=== PATIENT | female | born 1960 | race Caucasian/White ===

== ENCOUNTER 2016-10-18 10:07 | Day surgery (SDC) | payer MEDICARE, MEDICAID ==
[~2016-10-18] VITALS: Ht 149.9 cm; Wt 80.8 kg
[2016-10-18] VITALS (15 sets, daily range): BP systolic 103–135; BP diastolic 52–93; PULSE 78–94; RESP 10–20; TEMP 97.4–98.4; O2SAT 90–100; Ht 149.9 cm; Wt 80.8 kg
[~2016-10-18 10:07] MED LIST: ACET-2321 PO; ALBU2.5V7 AEROSOL; BENZ-16 PO; BUPR-51 PO; FLUT16SP EA NOSTRIL; GUAI-782 PO; HYDR-4246 PO; IPRA3AMP AEROSOL; LEVO150T11 PO; LIDOCAINE 1% (10mg/ml) 2ml SDV INJ ONE; LORA0.5T86 PO; METO5TAB2 PO; ONDA-55 PO; POTA20LI4 PO; QUET200T PO; QUET50TA PO
--- OUTSIDE RECORDS SUMMARY | 2016-10-18 10:13 | XMS REPORT | Continuity of Care Document ---
Author Author [facility] Organization [facility] Address Unknown Phone Unavailable Allergies Medications Problems Procedures Results Encounters ACCT No. Visit Date/Time Discharge Status Pt. Type Provider Facility Loc./Unit Complaint [id number] 10/15/2013 11:01:00 10/15/2013 23 :59:59 CLS Outpatient [id number] 09/30/2013 09:20:00 09/30/2013 23 :59:59 CLS Outpatient [id number] 08/27/2013 08:52:00 08/27/2013 23 :59:59 CLS Outpatient
[2016-10-18] MEDS ORDERED: ERTAPENEM 1 G in NORMAL SALINE 100 ML IV ONE (11:00)
[2016-10-18] MEDS ORDERED: FLUC200T8 PO (11:06)
[2016-10-18] MEDS ORDERED: FOLI1TAB15 PO (11:09)
[2016-10-18] MEDS ORDERED: THIA50TA PO (11:11)
[2016-10-18] MEDS ORDERED: CHOL200024 PO (11:16)
[2016-10-18 11:37] LABS: ANION GAP 9 MEQ/L (5-15); BUN/CREATININE RATIO 16 RATIO (6-26); CALCIUM 7.9 MG/DL (8.4-10.2); CHLORIDE 109 MEQ/L (98-107); CO2 - CARBON DIOXIDE 23 MEQ/L (22-30); CREATININE 0.7 MG/DL (0.7-1.2); GLOMERULAR FILTRATION RATE 86; GLUCOSE 87 MG/DL (65-110); POTASSIUM 4.4 MEQ/L (3.6-5); SODIUM 141 MEQ/L (134-144)
[2016-10-18] MEDS ORDERED: LR 1,000 ML IV PRN (12:02)
[2016-10-18] MEDS ORDERED: BUPIVACAINE 0.25%/EPI 1:200,000 30ml SDV ONE (12:05)
--- NOTE | 2016-10-18 12:27 | ANESPREOP ---
Anesthesia Record Date and Time DATE: 10/18/16 TIME: 12:09 Pre-Op Diagnosis poor venous access Proposed Surgical Procedure power port insertion NPO since: [place] Allergies: Coded Allergies: divalproex sodium (Verified Allergy, Severe, FACE SWELLS, 10/18/16) Sulfa (Sulfonamide Antibiotics) (Verified Allergy, Intermediate, RASH, ) phenazopyridine HCl (Verified Allergy, Intermediate, RASH, 10/18/16) gentamicin (Verified Allergy, Unknown, 10/18/16) phenazopyridine (Verified Allergy, Unknown, 10/18/16) levofloxacin (Verified Adverse Reaction, Severe, HALLUCINATIONS, 10/18/16) psychosis ampicillin (Verified Adverse Reaction, Mild, DIARRHEA, 10/18/16) Uncoded Allergies: Dantrisin (Allergy, Intermediate, RASH, 08/01/10) Ht/Wt/BMI Height: 4 ' 11.00 " Weight: 80.800 kg BMI: 36.0 kg/m2 Vital Signs Date Time Temp Pulse Resp B/P Pulse Ox O2 Delivery O2 Flow Rate FiO2 10/18/16 10:52 98.4 91 13 135/93 94 Room Air Medications Inpatient Medications Current Medications Medications (Trade) Dose Ordered Sig/Omari Start Time Stop Time Status Last Admin Dose Admin Lactated Ringer's (Lactated Ringers) 1,000 ml @ 0 mls/hr Q0M PRN 10/18/16 12:02 UNV 10/18/16 12:04 0 MLS/HR Acetaminophen (Tylenol) 325 Mg Tablet, 325 MG PO Q5H PRN for PAIN Last Taken: on Unknown Date & Time Albuterol Sulfate (Albuterol Sulfate) 2.5 Mg/3 Ml Vial.neb, 2.5 MG AEROSOL Q4HR PRN for SHORTNESS OF AIR Last Taken: on Unknown Date & Time Benzonatate (Benzonatate) 100 Mg Capsule , 100 MG PO TID PRN for COUGH Last Taken: on Unknown Date & Time Bupropion HCl (Bupropion Xl) 150 Mg Tab.er.24h, 150 MG PO DAILY, (Reported) Last Taken: on 10/17/16 1000 Cholecalciferol (Vitamin D3) (Vitamin D-3) 2, 000 Unit Tablet, DAILY, (Reported) Last Taken: on 10/17/16 0600 Fluconazole (Fluconazole) 200 Mg Tablet, 1 TAB PO DAILY, (Reported) Last Taken: on 10/17/16 0600 Fluticasone Propionate (Fluticasone Prop 50 mcg /actuation Nasal Stewart) 120 Stewart/16 G Stewart, 2 SPRAY EA NOSTRIL DAILY Last Taken: on Unknown Date & Time Folic Acid (Folic Acid) 1 Mg Tablet, 2 TAB PO DAILY, (Reported) Last Taken: on 10/17/16 0600 Guaifenesin/Dextromethorphan (Mucinex Dm ER 600 -30 mg Tablet) 1 Each Tab.er.12h, 1 TAB PO Q12HR Last Taken: on 10/17/16 1800 Hydrocodone/Acetaminophen (Starbuck 5-325 Tablet) 5-325 Tablet, 1 TAB PO Q6H PRN for PAIN Last Taken: on 10/17/16 1717 Ipratropium/Albuterol Sulfate (Iprat-Albut 0.5- 3(2.5) mg/3 ml) 3 Ml Ampul.neb, 3 ML AEROSOL RTQID Last Taken: on Unknown Date & Time Levothyroxine Sodium (Levothyroxine Sodium) 150 Mcg Tablet, 150 MCG PO DAILY, (Reported) Last Taken: on 10/18/16 0500 Lorazepam (Ativan) 0.5 Mg Tablet, 0.5 MG PO BID Last Taken: on 10/17/16 0600 Metoclopramide HCl (Metoclopramide HCl) 5 Mg Tablet, 5 MG PO ACHS, (Reported) Last Taken: on Unknown Date & Time Ondansetron HCl (Ondansetron HCl) 4 Mg Tablet, 4 MG PO Q6HR PRN for NAUSEA &/OR VOMITING, (Reported) Last Taken: on Unknown Date & Time Potassium Chloride (Potassium Chloride) 20 Meq/15 Ml Liquid, 20 MEQ PO TIDWM Take 15 ml, by mouth, three times a day with meals. MUST be diluted before giving. Last Taken: on 10/17/16 1800 Quetiapine Fumarate (Seroquel) 50 Mg Tablet, 50 MG PO DAILY PRN for ANXIETY/AGITATION, (Reported) Last Taken: on 10/16/16 1800 Quetiapine Fumarate (Seroquel) 200 Mg Tablet, 200 MG PO HS, (Reported) Take 1 tablet, by mouth, once a day at bedtime. Last Taken: on 10/17/16 1800 Thiamine HCl (Vitamin B-1) 50 Mg Tablet, 1 TAB PO DAILY, (Reported) Last Taken: on 10/17/16 0600 Currently on Beta David: No Medical/Surgical History Anesthesia PMH: Reports: *Diabetes (HYPERGLYCEMIA PER H&P), *Dyspnea (ON EXERTION-PER PAST ADMIT), *Hypertension (PER H&P), Anesthesia Reactions (NO AIRWAY ISSUES), Anxiety, Arthritis, Depression, Glaucoma (POSSIBLE & MAD), Headaches (MIGRAINES), Hiatal Hernia, Muscle Weakness, Obesity, Other (recent resp infection - RSV, recent falls - moved to [facility] in Aug 2016, mental status change at times per pt's mother), Reflux, Sleep Apnea, Thyroid Disease ( HYPOTHYROIDISM PER H&P), Denies: *PA, Asthma, Blood Transfusion Reac, CHF, COPD , CVA/Stroke/TIA, Cancer, Cardiac Arrythmia, Clotting Problems, Hepatitis, Malignant Hyperthermia, Pacemaker, Pneumonia, Renal Disease, Seizures, Tuberculosis Smoking Status: Never smoker Has pt. smoked today?: No Use Chewing Tobacco?: No Second Hand Exposure: No Substance Use Type: does not use Alcohol Intake: none HX of Last Menstrual Period: HYST. PER H&P Past Surgical History Orthopedic Surgeries: Yes - GANGLION CYST IF WRIST PER H&P Abdominal Surgeries: Yes - GASTROPLASTY, JACQUE, GASTRIC BYPASS PER H&P Genitourinary Surgeries: Yes - CYSTOSCOPY PER H&P Cardiac Surgeries: Yes - PER H&P Endocrine Surgeries: No Reproductive Surgeries: Yes - HYST, TUBAL PER H&P Neurological Surgeries: No Ear Surgeries: No Nose Surgeries: No Throat Surgeries: No Other Surgeries: No Anesthesia Adverse Reactions: FOUND none Family Hx of Anesthesia Advers: none Hx of Motion Sickness: No Pertinent Findings Laboratory Tests 10/18/16 11:01 Physical Exam Respiratory: Decreased breath sounds L, Decreased breath sounds R Cardiovascular: FOUND Regular rate, rhythm, FOUND No murmur Airway Assessment Mallampati Score: III TMD: 3 Fingerbreadths Neck Extension: Fair Teeth: Upper Dentures, Lower Dentures (attached to implants per pt's mother) Overall Assessment: No Airway Concerns ASA: 3 Plan Anesthesia Plan: TIVA, MAC Discussion Discussed risks/options/alternatives of anesthesia and questions answered. Patient consents. Nursing pain assessment noted. Present: Parent (pt's mother provided history d/t pt current clinical presentation - nonverbal) Attestation Statement Prior to the delivery of any anesthetic medication, I examined the patient, developed the plan, obtained the patient's consent and discussed the risk and benefits of the procedure with the patient/guardian. LAKEISHA SOSA ADJUSTER ARBITRATOR STUDENT Oct 18, 2016 12:12
[2016-10-18] MEDS ORDERED: PROPOFOL 200mg 20 ML IV ONE (12:33)
[2016-10-18] MEDS ORDERED: PROPOFOL 500mg 50 ML IV ONE (12:44)
[2016-10-18] MEDS ORDERED: POTA20TA87 PO (13:39)
--- NOTE | 2016-10-18 13:55 | DI ---
Indication: ITS.REASON: POWERPORT INSERTION PORTACATH W FLUORO W 1V CXR: Comparison: 08/06/2016 Technique: Single portable chest Findings: Patient shows a port in place in the right pectoral region. The distal tip of the tubing is in the upper midportion of the superior vena cava. No suggestion pneumothorax noted. Patient is fairly significantly rotated. Impression: Patient shows a right-sided port in place with its tip in the upper midportion of the superior vena cava. .
[2016-10-18] MEDS ORDERED: SALINE FLUSH 10ml SYRINGE IVF ONE (15:28)
--- NOTE | 2016-10-18 15:42 | ANESPO ---
Post-Op Note Date 10/18/16 Time: 15:41 Status Pt Participated in Evaluation: Pt participated in person Vital Signs Date Time Temp Pulse Resp B/P Pulse Ox O2 Delivery O2 Flow Rate FiO2 10/18/16 15:15 94 18 108/58 97 Room Air 10/18/16 13:35 97.4 Respiratory Function: Airway patent, Regular respirations Cardiovascular Function: Regular pulse Mental Status: Alert/oriented (return to pre op condition) Pain Level Intensity: 0 Hydration: IV infusing Complications during Recovery None apparent Follow-Up Instructions Instructions Per Surgeon DHEERAJ SOSA I KIDNEY TRIMMER Oct 18, 2016 15:42
--- NOTE | 2016-10-18 21:09 | OPNOTEF ---
DATE OF SERVICE 10/18/2016 SURGEON Oziel Lopez MD PREOPERATIVE DIAGNOSIS History for multiple medical comorbidities requiring numerous hospitalizations, history for poor venous access. POSTOPERATIVE DIAGNOSIS History for multiple medical comorbidities requiring numerous hospitalizations, history for poor venous access. PROCEDURE Insertion of PowerPort catheter under sonographic and fluoroscopic guidance. ANESTHESIA TIVA BRIEF HISTORY/INDICATIONS Mrs. Alicia is a 56-year-old female who unfortunately has several medical comorbidities requiring numerous hospitalization. She is on medication that requires frequent lab draws. Nursing staff is having an increasingly more difficult time obtaining peripheral IV access following her admissions and the phlebotomy team is having increasingly more difficulty in performing lab draws. To facilitate her ongoing care it was recommended that she undergo placement of a PowerPort. Patient presents today to undergo this procedure. For completeness please refer to notes included in the patient's chart. DESCRIPTION OF OPERATION After informed consent was obtained, the patient was brought to the operative suite, placed on the table in supine fashion. The right lateral neck and anterior chest were then prepped and draped in a sterile fashion. First, the patient was placed in Trendelenburg position and ultrasonography was performed along the right lateral neck. One could see a round hypoechoic structure which collapsed with pressure applied via the ultrasound transducer. This corresponded with the internal jugular vein. 0.25% Marcaine with epinephrine was injected overlying the anatomic location of the internal jugular vein. A Cook needle was then introduced through the area of analgesia and into the underlying internal jugular vein under sonographic guidance. A guidewire was advanced through the Cook needle and the Cook needle was then removed. Fluoroscopy was then performed which revealed the guidewire to be within the atrium and right ventricle. A 5-6 mm incision was then made adjacent to the exit site of the guidewire and extended out laterally. Additional 0.25% Marcaine with epinephrine was injected about two fingerbreadths below the right clavicle. A 3 cm incision was then made through the area of analgesia. A subcutaneous pocket was then created just inferior or caudad to this incision. A PowerPort reservoir was then brought forth into the operative field and placed within the subcutaneous pocket and subsequently imbricated to the underlying pectoralis fascia in a triangulated fashion by placing three simple interrupted sutures of 0-Prolene through the underlying pectoralis fascia and subsequently through the holes within the reservoir itself. The catheter was then tunneled between the two incisions. A dilator and tear-away sheath were then advanced over the guidewire. The guidewire and dilator were then removed. The catheter was then quickly advanced in the tear-away sheath and the tear-away sheath was then removed. Under fluoroscopy, the tip of the catheter was then placed near the junction between the superior vena cava and right atrium and cut to the appropriate length and subsequently attached to the PowerPort reservoir. The PowerPort reservoir was then accessed and was easily aspirated and flushed with heparinized saline. Both skin incisions were then closed in a subcuticular fashion with 4-0 Monocryl. The patient tolerated the procedure without difficulty. A post procedure chest x-ray will be obtained postoperatively. The results of this film are pending at the time of dictation. FRANSISCO
== END 2016-10-18 16:45 | disposition home or self-care (01) ==
LOC: SCU 10:07
PROVIDERS: ATTEND Surgery
DX: I99.8 Other disorder of circulatory system (principal); E03.9 Hypothyroidism, unspecified; I10 Essential (primary) hypertension; G43.909 Migraine, unspecified, not intractable, without status migrainosus; G47.33 Obstructive sleep apnea (adult) (pediatric); F41.1 Generalized anxiety disorder; F31.9 Bipolar disorder, unspecified; K76.0 Fatty (change of) liver, not elsewhere classified; E66.09 Other obesity due to excess calories; Z79.899 Other long term (current) drug therapy; Z79.51 Long term (current) use of inhaled steroids; Z88.1 Allergy status to other antibiotic agents; Z88.2 Allergy status to sulfonamides; Z88.8 Allergy status to other drugs, medicaments and biological substances; Z68.35 Body mass index [BMI] 35.0-35.9, adult; Z90.710 Acquired absence of both cervix and uterus; Z90.49 Acquired absence of other specified parts of digestive tract
CPT/HCPCS: 36416; 36561; 77001; 80048; C1788; J1335; J1642; J2704; J7050; J7120

== ENCOUNTER 2016-10-20 11:28 | Inpatient (IN) | payer MEDICARE, MEDICAID ==
[2016-10-20] VITALS (19 sets, daily range): BP systolic 96–122; BP diastolic 55–81; PULSE 92–104; RESP 22–31; TEMP 99.1–103; O2SAT 96–100; Ht 157.5 cm; Wt 88.1 kg
[~2016-10-20] VITALS: Ht 157.5 cm; Wt 88.1 kg
[~2016-10-20 11:28] MED LIST changes: +CHOL200024 PO; +FLUC200T8 PO; +FOLI1TAB15 PO; -LIDOCAINE 1% (10mg/ml) 2ml SDV INJ ONE; -POTA20LI4 PO; +POTA20TA87 PO; +THIA50TA PO
--- OUTSIDE RECORDS SUMMARY | 2016-10-20 11:33 | XMS REPORT | Continuity of Care Document ---
Author Author [facility] Organization [facility] Address Unknown Phone Unavailable Allergies Medications Problems Procedures Results Encounters ACCT No. Visit Date/Time Discharge Status Pt. Type Provider Facility Loc./Unit Complaint [id number] 10/15/2013 11:01:00 10/15/2013 23 :59:59 CLS Outpatient [id number] 09/30/2013 09:20:00 09/30/2013 23 :59:59 CLS Outpatient [id number] 08/27/2013 08:52:00 08/27/2013 23 :59:59 CLS Outpatient
--- NOTE | 2016-10-20 11:37 | NUR ---
SEIZURE PT EXHIBITS SEIZURE LIKE ACTIVITY, TWITCHING BILATERAL EXTREMITIES, FACE; R EYE HELD OPEN, LEFT EYE TWITCHING SHUT. PT EXHIBITS WHITE SALIVA AT CORNERS OF MOUTH. DR CARTER CALLED TO BEDSIDE. DR CARTER PRESENT IMMEDIATELY.
[2016-10-20] MEDS ORDERED: GUAI-782 PO (11:38)
--- NOTE | 2016-10-20 11:38 | NUR ---
OXYGEN PLACED MASK 10L, SPO2 63% ON RA.
--- NOTE | 2016-10-20 11:40 | NUR ---
SPO2 100% 10L PER MASK.
[2016-10-20] MEDS ORDERED: POTA-81 PO (11:44)
[2016-10-20] MEDS ORDERED: LORA0.5T2 PO ×2 (11:44→11:52)
[2016-10-20] MEDS ORDERED: NORMAL SALINE 1,000 ML IV ONE ×2 (11:45→13:45)
[2016-10-20] MEDS ORDERED: BENZ-16 PO (11:47)
[2016-10-20] MEDS ORDERED: HYDR-4246 PO (11:47)
[2016-10-20] MEDS: LORAZEPAM 2 MG/ML INJECTION IV ONE ×2 (11:48→12:08)
--- NOTE | 2016-10-20 11:50 | NUR ---
SEIZURE PT EXHIBITED SEIZURE LIKE ACTIVITY AT THIS TIME. ACTIVITY SAME PREVIOUS, WITH WHOLE BODY TWITCHING AND L EYE TWITCHING WITH R EYE HELD OPEN. REPORTED ACTIVITY TO DR CARTER.
[2016-10-20] MEDS ORDERED: SUMA50TA PO (11:52)
[2016-10-20] MEDS ORDERED: ACET325T51 PO (11:52)
[2016-10-20] MEDS ORDERED: QUET50TA PO (11:54)
--- NOTE | 2016-10-20 11:56 | ERPDOC ---
Departure Disposition Decision Date: Oct 20, 2016 Disposition Decision Time: 15:18 Disposition: 02 TO [facility] Impression Impression Impression: Primary Impression: Mental status change Additional Impressions: Epilepsy Hypotension Severity: Critical Condition: Improved Seen By: Physician only Referrals: PATIENCE HOWELL MD (Family) Problems/Meds/Labs Reviewed?: Yes Medications reviewed and manag: Yes Follow up care ordered?: Yes Mental Status: Confused HPI - CVA/Neuro General Chief Complaint: Seizure Stated Complaint: SEIZURES Time Seen by Provider: 11:35 HPI - CVA/NEURO Initial Comments 56-year-old female brought in from assisted living with mental status change. Since last Saturday she has been obtunded, not eating much. She has had changes made to her medications, having been admitted to generations and other psychologic issues. On arrival by EMS she responds to sternal rub, she does try to assist him with of dread remove her shirt. Or when the blanket is lifted over her arms. However approximately 3 minutes into her evaluation, she began to have tonic-clonic left-sided seizure involving face and arms and leg. Left eye contracted and opened quite violently, rapidly and rhythmically. Same rhythm with arm flexor and extensor contractions and leg flexor and extensor contractions. This lasted approximately 3 minutes and resolved. She then had a second episode about 10 minutes later. She does have hypertension and tachycardia on initial eval. Allergies: Coded Allergies: divalproex sodium (Verified Allergy, Severe, FACE SWELLS, 10/18/16) Sulfa (Sulfonamide Antibiotics) (Verified Allergy, Intermediate, RASH, ) phenazopyridine HCl (Verified Allergy, Intermediate, RASH, 10/18/16) gentamicin (Verified Allergy, Unknown, 10/18/16) phenazopyridine (Verified Allergy, Unknown, 10/18/16) levofloxacin (Verified Adverse Reaction, Severe, HALLUCINATIONS, 10/18/16) psychosis ampicillin (Verified Adverse Reaction, Mild, DIARRHEA, 10/18/16) Uncoded Allergies: Dantrisin (Allergy, Intermediate, RASH, 08/01/10) Past History Unable to Obtain PMH Due to: clinical condition Patient Surgical History bariatric procedure ? Rouenx y gastric bypass abdominoplasty s/p weight loss RAJIV cholecystectomy ganglion cysts Past Medical History Metabolic: hypothyroidism Cardiac: CHF GI: GERD Neurological: migraines Musculoskeletal: back pain, neck pain, osteoarthritis Integumentary: eczema Psychological: anxiety, bipolar, depression Vaccines Hx Influenza Vaccination: Yes (05-24-16) Hx Pneumococcal Vaccination: Yes (08-27-13) Social History Does patient use chewing tobac: No Second Hand Exposure: No Substance Use Type: does not use Alcohol Intake: none Marital Status: Single Housing: assisted living facility Household Members: none Current Occupational Status: unemployed, disabled Advance Directives: Yes Full Code Review of Systems Unable to Obtain ROS Due to: clinical condition Physical Exam General General Nourishment: adult, obese General Body Habitus: disheveled Vitals and Pain First Documented Vital Signs Date Time Temp Pulse Resp B/P Pulse Ox O2 Delivery O2 Flow Rate FiO2 10/20/16 11:30 101.4 92 16 130/82 98 Room Air 10/20/16 11:38 10.00 Weight: Kilograms: 78.200 Height (feet): 5 Height (inches): 2.00 Triage Pain Scale: Normal Exams: Head: Normocephalic w/o trauma Eyes: Pupils are PERRLA w/ EOMI, No scleral icterus, irritation, or foreign bodies noted Neurologic (brief) Comments Patient initially responded to sternal rub, now he is less responsive than that , does open eyes to very irritating stimuli. Differential Diagnoses Considering: Other (CVA, brain abscess, epilepsy, medication reaction) Progress Results/Orders Orders Procedure Category Date Status Time Iv Lock (Ed Only) EDM 10/20/16 Transmitted 11:43 Oxygen Administration EDM 10/20/16 Transmitted 11:43 Nothing By Mouth (Ed EDM 10/20/16 Transmitted Only) 11:43 Bgm (Ed) EDM 10/20/16 Transmitted 11:43 Cmp - Comprehensive LAB 10/20/16 Complete Metabolic 11:43 Drug Screen LAB 10/20/16 Complete Urine-Test At [facility] 11:43 Prolactin LAB 10/20/16 Complete 11:43 Lorazepam (Ativan) PHA 10/20/16 Complete 11:45 Normal Saline (Normal PHA 10/20/16 Complete Saline Iv) 11:45 Lactate - Lactic Acid LAB 10/20/16 In Process 11:43 Blood Culture ELIZABETH 10/20/16 In Process 11:43 Procalcitonin LAB 10/20/16 Complete 11:43 Burroughs (Ed) EDM 10/20/16 Transmitted 11:43 Blood Gas, Arterial - LAB 10/20/16 Complete ABG 11:43 Catheter Needs SPENSER 10/20/16 In Process Assessment 11:43 Bladder Scanner (Ed) EDM 10/20/16 Transmitted 11:43 Ct Head W/O Contrast CT 10/20/16 Taken Diazepam (Valium) PHA 10/20/16 Complete 12:00 Normal Saline (Normal PHA 10/20/16 Complete Saline Iv) 13:45 UA, LAB 10/20/16 Complete Dip&Micro(Complete) & 12:55 Cbc W/Auto LAB 10/20/16 Complete Diff-Reflex Manual 14:42 Lab Results Laboratory Tests Test 10/20/16 12:30 10/20/16 12:55 10/20/16 13:09 10/20/16 14:36 Arterial Blood pH 7.450 Arterial Blood Partial Pressure CO2 33MMHG Arterial Blood pO2 at Patient Temp 205MMHG Arterial Blood HCO3 23MEQ/L Arterial Blood Total CO2 23.9MEQ/L Arterial Blood Oxygen Saturation 100.0% Arterial Blood Base Excess -0.5MMOL/L Oxygen Delivery Method (LAB) Simple mask, % Blood Gas Oxygen Liter Flow 10 Blood Gas Oxygen Percent Given Blood Gas Vent Rate Blood Gas Tidal Volume ML Urine Collection Type Straight cath Urine Color Yellow Urine Turbidity Clear Urine pH 6.0 Urine Specific [place] 1.020 Urine Protein Negative Urine Glucose (UA) Negative Urine Ketones 1+ Urine Blood 2+ Urine Nitrite Negative Urine Bilirubin Negative Urine Urobilinogen 0.2EU/DL Urine Leukocyte Esterase Negative Urine RBC 5-10/HPF Urine WBC 1-3/HPF Urine Squamous Epithelial Cells 5-10 Urine Bacteria 1+ Urine Mucus Present Urine Culture Indicated Cult not indicated Urine Opiates Screen PositiveNG/ML Urine Oxycodone Screen NegativeNG/ML Urine Methadone Screen NegativeNG/ML Urine Propoxyphene Screen NegativeNG/ML Urine Barbiturates Screen NegativeNG/ML Urine Tricyclic Antidepressants NegativeNG/ML Urine Phencyclidine Screen NegativeNG/ML Urine Amphetamines Screen NegativeNG/ML Urine Methamphetamines Screen NegativeNG/ML Urine Benzodiazepines Screen PositiveNG/ML Urine Cocaine Screen NegativeNG/ML Urine Cannabinoids Screen NegativeNG/ML Urine Drug Screen Confirmation Sent out Urine Drug Screen Information Pending Glucometer 105mg/dL Turbidity < 20 Sodium Level 146MEQ/L Potassium Level Pending Chloride Level 111MEQ/L Carbon Dioxide Level 23MEQ/L Anion Gap 12MEQ/L Blood Urea Nitrogen 8.0MG/DL Creatinine 0.7MG/DL Glomerular Filtration Rate Calc 86 BUN/Creatinine Ratio 11RATIO Glucose Level 83MG/DL Calculated Osmolality 278MOSM/KG Calcium Level Pending Total Bilirubin 1.00MG/DL Icterus Index < 2 Aspartate Amino Transf (AST/SGOT) 60U/L Alanine Aminotransferase (ALT/SGPT) 53U/L Alkaline Phosphatase 102U/L Total Protein 4.8G/DL Albumin 1.9G/DL Globulin 2.9G/DL Albumin/Globulin Ratio 0.7RATIO Plasma Lactate 1.5MMOL/L Procalcitonin 0.05NG/ML Prolactin 4.1NG/ML Chemistry Specimen Hemolysis < 15 Test 10/20/16 14:42 White Blood Count 9.7T/MM3 Red Blood Count 3.42M/MM3 Hemoglobin 11.1GM/DL Hematocrit 35.1% Mean Corpuscular Volume 102.6UM3 Mean Corpuscular Hemoglobin 32.5UUG Mean Corpuscular Hemoglobin Concent 31.6GM/DL RDW Standard Deviation 67.6FL Platelet Count 298T/MM3 Mean Platelet Volume 8.3UM3 Immature Granulocyte % (Auto) 0.3% Neutrophils (%) (Auto) 79.9% Lymphocytes (%) (Auto) 17.4% Monocytes (%) (Auto) 2.4% Eosinophils (%) (Auto) 0.0% Basophils (%) (Auto) 0.0% Absolute Immature Granulocyte (auto 0.03T/MM3 Absolute Neutrophils (auto) 7.8T/MM3 Absolute Lymphocytes (auto) 1.7T/MM3 Absolute Monocytes (auto) 0.2T/MM3 Absolute Eosinophils (auto) 0.0T/MM3 Absolute Basophils (auto) 0.0T/MM3 Medications Current ED Medications Lorazepam 2 mg 2 mg O ONCE IV Last administered on 10/20/16 12:08; Start at 11:45; Stop 10/20/16 at 11:50; Status DC Sodium Chloride (Normal Saline IV) 1,000 ml @ 1,000 mls/hr Q1H ONCE IV Last administered on 10/20/16 12:05; Start 10/20/16 at 11:45; Stop 10/20/16 at 12:44 ; Status DC Diazepam 5 mg 5 mg O ONCE IM Last administered on 10/20/16 11:53; Start 10/20 at 12:00; Stop 10/20/16 at 12:01; Status DC Sodium Chloride (Normal Saline IV) 1,000 ml @ 1,000 mls/hr Q1H ONCE IV Last administered on 10/20/16 13:39; Start 10/20/16 at 13:45; Stop 10/20/16 at 14:44 ; Status DC Progress Progress No IV access was obtained and intraosseous needle was placed under physician supervision. Normal saline given as well as Valium and Ativan for seizure control. Greater than 2 hours was spent is trying of blood from this patient. She is an extremely hard draw. Even femoral venous stick was attempted, but unsuccessful. Patient does have Sarah-cath which was placed 2 days ago, has not completely healed. Ultimately we had to access it. This was successful, blood was obtained and drawn and fluid infused. White count returned normal, blood cultures were obtained, CT head was negative. Lactate returned at 1.5, prolactin returned normal. Patient initially presented with temp of 100.3, hypotension and tachycardia as well as mental status changes. Decision was made to treat her as sepsis with shock. IV fluids have been given, antibiotics started after blood culture obtained. Dr. Linder agreed to admit the patient. Patient continue to be worked up for possible septic origin versus other etiology of mental status change and seizure. Patient had to visualize seizures as I was in the room, treated with Ativan and Valium. Greater than 1 hour was spent in critical care for this patient with severe neuro symptoms and hemodynamic instability. MONICA CARTER MD Oct 20, 2016 11:55
--- NOTE | 2016-10-20 12:03 | NUR ---
SEIZURE ACTIVITY AGAIN AT THIS TIME IN SAME MANNER PREVIOUS, LASTING APPROX 1 MIN[address] REPORTED ACTIVITY TO DR CARTER.
--- NOTE | 2016-10-20 12:04 | NUR ---
IO ACCESS RT TIBIAL IO ACCESS X1 ATTEMPT WITH DR. CARTER PRESENT. BONE MARROW RETURN, FLUSHES WELL WITHOUT ISSUE, IVF'S ATTACHED BY SHERIN RN.
[2016-10-20] MEDS ORDERED: FLUT16SP EA NOSTRIL (12:07)
[2016-10-20] MEDS ORDERED: IPRA3AMP AEROSOL (12:07)
--- NOTE | 2016-10-20 12:07 | NUR ---
UPPER AIR PER RT, PT HAVING UPPER AIRWAY OBSTRUCTION, SONOROUS RESPIRATIONS.
--- NOTE | 2016-10-20 12:08 | NUR ---
ORAL AIRWAY YELLOW PLACE AT THIS TIME BY ALISHA MULLER.
--- NOTE | 2016-10-20 12:18 | NUR ---
RT IN ROOM FOR ABG DRAW
--- NOTE | 2016-10-20 12:29 | NUR ---
RT REMAIN AT BEDSIDE FOR ABG DRAW.
--- NOTE | 2016-10-20 12:50 | NUR ---
CRISS/TEST DESK TROUBLE LOCATOR AT BEDSIDE TO FACILITATE UDS. 100ML GIVEN TO LAB FOR UA/UDS.
--- NOTE | 2016-10-20 13:02 | NUR ---
LAB STAFF X2 IN ROOM FOR VENIPUNCTURE ATTEMPT.
--- NOTE | 2016-10-20 13:18 | NUR ---
CT PT TO CT VIA JUAN CARLOS, ACCOMPANIED BY THIS RN.
--- NOTE | 2016-10-20 13:29 | NUR ---
CT PT RETURNED.
--- OUTSIDE RECORDS SUMMARY | 2016-10-20 13:46 | XMS REPORT | Continuity of Care Document ---
Author Author [facility] Organization [facility] Address Unknown Phone Unavailable Allergies Medications Problems Procedures Results Encounters ACCT No. Visit Date/Time Discharge Status Pt. Type Provider Facility Loc./Unit Complaint [id number] 10/15/2013 11:01:00 10/15/2013 23 :59:59 CLS Outpatient [id number] 09/30/2013 09:20:00 09/30/2013 23 :59:59 CLS Outpatient [id number] 08/27/2013 08:52:00 08/27/2013 23 :59:59 CLS Outpatient
[2016-10-20 13:47] LABS: BLOOD, URINE 2+ (NEGATIVE); COLOR,URINE YELLOW (YELLOW); LEUKOCYTE ESTERASE ,URINE NEGATIVE (NEGATIVE); NITRITE,URINE NEGATIVE (NEGATIVE); UROBILINOGEN,URINE 0.2 EU/DL (NORMAL)
[2016-10-20 13:57] LABS: AMPHETAMINE SCREEN,URINE NEGATIVE; BARBITURATE SCREEN,URINE NEGATIVE; BENZODIAZEPINES SCREEN,URINE POSITIVE; CANNABINOID SCREEN,URINE NEGATIVE; COCAINE SCREEN,URINE NEGATIVE; METHADONE SCREEN, URINE NEGATIVE; METHAMPHETAMINE SCREEN, URINE NEGATIVE; OPIATE SCREEN,URINE POSITIVE; PHENCYCLIDINE SCREEN,URINE NEGATIVE; TRICYCLIC ANTIDEPRESSANT,URINE NEGATIVE
--- NOTE | 2016-10-20 14:00 | NUR ---
BUSINESS PROCESS REPRESENTATIVE AT BEDSIDE FOR VENIPUNCTURE ATTEMPT.
[2016-10-20 14:04] LABS: BACTERIA,URINE 1+ (NEGATIVE); MUCUS,URINE PRESENT
--- NOTE | 2016-10-20 14:12 | NUR ---
INFUSION TX/LAB Jesus HAWKINS RN AT BEDSIDE FOR MIDLINE PLACEMENT. DISCUSSED OPTION OF PEDIATRIC TUBES FOR CBC AND METABOLIC PANEL.
[2016-10-20 14:43] LABS: HCT - HEMATOCRIT 35.1 % (36-46); HGB - HEMOGLOBIN 11.1 GM/DL (12-16); IMMATURE GRANULOCYTE # (AUTO) 0.03 T/MM3 (0.00-0.03); IMMATURE GRANULOCYTE % (AUTO) 0.3 % (0.0-0.5); LYMPHOCYTES # (AUTO) 1.7 T/MM3 (1-4.8); LYMPHOCYTES % (AUTO) 17.4 % (23-45); MEAN CORPUSCULAR HGB 32.5 UUG (26-34); MEAN CORPUSCULAR HGB CONC(MCHC 31.6 GM/DL (31-37); MEAN CORPUSCULAR VOLUME 102.6 UM3 (80-100); MEAN PLATELET VOLUME 8.3 UM3 (9.4-12.4); MONOCYTES # (AUTO) 0.2 T/MM3 (0-0.8); MONOCYTES % (AUTO) 2.4 % (0-9.0); NEUTROPHILS #(AUTO)-ABSOLUTE 7.8 T/MM3 (1.8-7.7); NEUTROPHILS % (AUTO) 79.9 % (33-66); RED BLOOD COUNT 3.42 M/MM3 (4.00-5.20); WBC - WHITE BLOOD COUNT 9.7 T/MM3 (4.5-11.0)
--- NOTE | 2016-10-20 14:43 | NUR ---
PAC Verbal ok from ER doc to access PAC. Port location visualized with ultrasound. Accessed with 1 1/2 " needle without difficulty. Blood aspirated. Sample obtained for lab.
[2016-10-20 14:49] LABS: LACTATE - LACTIC ACID 1.5 MMOL/L (0.6-2.2)
[2016-10-20 14:53] LABS: ALBUMIN 1.9 G/DL (3.5-5.0); ALBUMIN/GLOBULIN RATIO 0.7 RATIO (1.1-2.2); ALKALINE PHOSPHATASE 102 U/L (38-126); ALT (SGPT) 53 U/L (9-52); ANION GAP 12 MEQ/L (5-15); AST (SGOT) 60 U/L (14-36); BUN/CREATININE RATIO 11 RATIO (6-26); CALCIUM 7.1 MG/DL (8.4-10.2); CHLORIDE 111 MEQ/L (98-107); CO2 - CARBON DIOXIDE 23 MEQ/L (22-30); CREATININE 0.7 MG/DL (0.7-1.2); GLOMERULAR FILTRATION RATE 86; GLUCOSE 83 MG/DL (65-110); POTASSIUM 3.3 MEQ/L (3.6-5); SODIUM 146 MEQ/L (134-144); TOTAL PROTEIN 4.8 G/DL (6.3-8.2)
[2016-10-20 15:09] LABS: PROLACTIN 4.1 NG/ML
--- NOTE | 2016-10-20 15:30 | NUR ---
PROVIDER AIDA ROSALES IN TO SEE PATIENT.
--- NOTE | 2016-10-20 15:44 | NUR ---
REPORT GIVEN TO [facility]IEL CARUSO CCU.
--- OUTSIDE RECORDS SUMMARY | 2016-10-20 15:45 | XMS REPORT | Continuity of Care Document ---
Author Author [facility] Organization [facility] Address Unknown Phone Unavailable Allergies Medications Problems Procedures Results Encounters ACCT No. Visit Date/Time Discharge Status Pt. Type Provider Facility Loc./Unit Complaint [id number] 10/15/2013 11:01:00 10/15/2013 23 :59:59 CLS Outpatient [id number] 09/30/2013 09:20:00 09/30/2013 23 :59:59 CLS Outpatient [id number] 08/27/2013 08:52:00 08/27/2013 23 :59:59 CLS Outpatient
--- NOTE | 2016-10-20 16:00 | NUR ---
ADMIT PT TAKEN TO CCU BY YADIEL REEDER ON . [employer].
--- NOTE | 2016-10-20 16:00 | NUR ---
Admit Pt admitted from ER to CCU bed 3 via cart. Pt transferred using slide board into bed. Pt has oral airway in place, IVL, IO in right otero, scott patent and draining, and NC with 2L. Pt only responsive to pain. Temperature upon arrival was 103 degrees, axillary. Cool wash cloth placed on forehead and fan turned on in room. Orders noted. Will continue to monitor.
[2016-10-20] MEDS: NORMAL SALINE 1,000 ML IV SCH ×3 (16:38→22:21)
[2016-10-20] MEDS ORDERED: ACETAMINOPHEN 650 MG SUPPOSITORY RECTALLY PRN ×3 (16:45→18:15)
--- NOTE | 2016-10-20 16:50 | NUR ---
Update Pt remains febrile. Tylenol suppository given per orders. IO removed. Oral airway also removed as pt began gag on airway. Will continue to monitor.
[2016-10-20] MEDS ORDERED: VANCOMYCIN 1,000 MG in NORMAL SALINE 250 ML IV ONE (17:15)
[2016-10-20] MEDS ORDERED: ONDANSETRON 4mg/2ml INJECTION IV PRN (17:15)
--- NOTE | 2016-10-20 17:30 | HPPDOC ---
ISABELLA ROSALES EXCEL SPECIALIST 10/20/16 1539: HPI - Adult Date DATE: 10/20/16 TIME: 15:35 General Chief Complaint: Seizure History of Present Illness Elina Alicia is a 56 y/o lady with a hx of bipolar d/o and major depression, and resides in long term care phlebotomist care. She has been having increasing hallucinations and paranoia and delusions at [facility] since last dc'd from the hospital (09/27/16) - she has believed that staff is putting horse tranquilizer in her water and that they are bugging her bed. She has had recent hospitalizations at [facility] for dehydration, hypokalemia, UTI, depression, and RSV. Saw Dr. Underwood on 10/10/16 - he discontinued topiramate, Seroquel, K, Lasix. Stopped antacids. Decreased Lorazepam to 0.5 mg. Start Vitamin B12, Folic acid and thiamine for pernicious anemia, and vit D3 for deficiency. Finished course of fluconazole 200 mg daily x 7 days for yeast dermatitis (started 10/10/16). She had a PowerPort inserted on 10/18/[address] Lopez. Per report, she has had poor oral intake and has been lethargic for the last 5 days. EMS was summoned, and noted that she responded to painful stimuli only. Shortly after arrival to the emergency department, she began to have tonic- clonic left-sided seizure involving her face, arms and leg, which lasted about 3 minutes. She had a repeated seizure about 10 minutes later. An IO was placed to the right tibia. She was given Valium and Ativan in the emergency department. A Burroughs catheter was also inserted. She was febrile on arrival with a temp of 101.4. Room air saturation was 63%, and she was placed on a nonrebreather mask. She was also noted to be tachycardic and tachypneic. White count was normal at 9.7 with 79.9% neutrophils. ABG showed a pH of 7.45, PCO2 of 33, PO2 of 205 and bicarbonate of 23, while on 10 L of oxygen. CMP showed hypernatremia with sodium of 146, hypokalemia with potassium of 3.3, hypocalcemia with a calcium level of 7.1, elevated AST, 60, elevated ALT, 53, and low albumin at 1.9. Lactate was 1.5 and procalcitonin was 0.05. Toxicology screen was positive for opiates and benzodiazepines. Urinalysis showed 1+ ketones, 5-10 RBC, and 1+ bacteria. Head CT did not show any acute intracranial abnormality. Blood cultures were drawn, and she was given IV fluid bolus. The hospitalist service was contacted and the patient was admitted to inpatient status to the critical care unit. Length of stay expected to exceed 2 overnights to further evaluate and treat her acute, new onset seizure activities , severe sepsis, and acute encephalopathy. Past Medical History Past Medical History Morbid obesity Hypotension Nonalcoholic steatohepatitis Gastritis hypothyroidism migraine disorder GIOVANA on CPAP Chronic pain Bipolar disorder Surgical History Patient's Surgical History: Powerport insertion 10/18/16 - Dr. Lopez bariatric procedure Rouex & y gastric bypass abdominoplasty s/p weight loss RAJIV cholecystectomy ganglion cysts Current Medications Home Meds Reported Medications Ipratropium/Albuterol Sulfate (Iprat-Albut 0.5-3(2.5) mg/3 ml) 3 Ml Ampul.neb, 1 VIAL AEROSOL QID 10/20/16 Fluticasone Propionate (Fluticasone Prop 50 mcg/actuation Nasal Clint) 120 Clint /16 G Clint, 2 SPRAY EA NOSTRIL DAILY 10/20/16 Quetiapine Fumarate (Seroquel) 50 Mg Tablet, 50 MG PO DAILY Y for HALLUCINATIONS 10/20/16 Acetaminophen (Acetaminophen) 325 Mg Tablet, 325 MG PO QID Y for PAIN 10/20/16 Lorazepam (Lorazepam) 0.5 Mg Tablet, 0.5 MG PO DAILY Y for ANXIETY 10/20/16 Sumatriptan Succinate (Imitrex) 50 Mg Tablet, 50 MG PO 2XW Y for PAIN 10/20/16 Hydrocodone/Acetaminophen (Luxor 5-325 Tablet) 5-325 Tablet, 1 TAB PO Q6H Y for PAIN 10/20/16 Benzonatate (Benzonatate) 100 Mg Capsule, 100 MG PO TID Y for COUGH 10/20/16 Potassium Chloride (Potassium Chloride) 20 Meq Tablet.er, 20 MEQ PO WB 10/20/16 Lorazepam (Lorazepam) 0.5 Mg Tablet, 0.5 MG PO DAILY 10/20/16 Guaifenesin/Dextromethorphan (Mucinex Dm ER 600-30 mg Tablet) 1 Each Tab.er.12h , 1 TAB PO Q12H 10/20/16 Cholecalciferol (Vitamin D3) (Vitamin D-3) 2,000 Unit Tablet, 2000 UNIT PO DAILY 10/18/16 Thiamine HCl (Vitamin B-1) 50 Mg Tablet, 50 MG PO DAILY 10/18/16 Folic Acid (Folic Acid) 1 Mg Tablet, 2 MG PO DAILY 10/18/16 Quetiapine Fumarate (Seroquel) 50 Mg Tablet, 50 MG PO DAILY 10/17/16 Ondansetron HCl (Ondansetron HCl) 4 Mg Tablet, 4 MG PO Q6HR Y for NAUSEA &/OR VOMITING 09/09/16 Metoclopramide HCl (Metoclopramide HCl) 5 Mg Tablet, 5 MG PO AC Y for ACID REFLUX 09/09/16 Levothyroxine Sodium (Levothyroxine Sodium) 150 Mcg Tablet, 150 MCG PO ACB 09/05/16 Bupropion HCl (Bupropion Xl) 150 Mg Tab.er.24h, 150 MG PO DAILY 07/11/16 Discontinued Scripts Potassium Chloride (Potassium Chloride) 20 Meq/15 Ml Liquid, 20 MEQ PO TIDWM for 5 Days, OZ Take 15 ml, by mouth, three times a day with meals. MUST be diluted before giving. Prov:ROM PEARCE APRN, S 10/15/16 Allergies: Coded Allergies: divalproex sodium (Verified Allergy, Severe, FACE SWELLS, 10/20/16) Sulfa (Sulfonamide Antibiotics) (Verified Allergy, Intermediate, RASH, ) phenazopyridine HCl (Verified Allergy, Intermediate, RASH, 10/20/16) gentamicin (Verified Allergy, Unknown, 10/20/16) phenazopyridine (Verified Allergy, Unknown, 10/20/16) levofloxacin (Verified Adverse Reaction, Severe, HALLUCINATIONS, 10/20/16) psychosis ampicillin (Verified Adverse Reaction, Mild, DIARRHEA, 10/20/16) Uncoded Allergies: Dantrisin (Allergy, Intermediate, RASH, 08/01/10) Family History Family History: Unobtainable Social History Smoking Status: Former smoker Does patient use chewing tobac: No Second Hand Exposure: No Substance Use Type: does not use, former substance user Alcohol Intake: none Marital Status: Single Housing: assisted living facility Household Members: none Current Occupational Status: unemployed, disabled Advance Directives: Yes Full Code Social History Comments PCP - Kj Review of Systems Unable to Obtain ROS Due to: clinical condition (somnolent and nonverbal at time of assessment) Physical Exam General General Nourishment: well developed, obese Vital Signs Vital Signs Date Time Temp Pulse Resp B/P Pulse Ox O2 Delivery O2 Flow Rate FiO2 10/20/16 14:37 98 24 124/62 100 Nasal Cannula 4.00 10/20/16 11:30 101.4 Height (Feet): 5 Height (Inches): 2.00 Eyes Brief: FOUND: PERRL (minimally responsive/sluggish) ENMT Brief: FOUND: other (oral airway in place) Comments surgical incision to right lateral lower neck - slightly erythemic Respiratory Brief: FOUND: clear all rodrigues (anteriorly), equal bilaterally Cardiovascular (brief) Cardiac Brief: FOUND: regular rate, regular rhythm Cardiovascular Edema: 0: Arm (L), Arm (R), Leg (L), Leg (R) Abdomen Inspection: NOT FOUND: distention Palpation: FOUND: soft, NOT FOUND: tender Auscultation: FOUND: hypoactive Lymphatic (brief) Lymphatic Brief: NOT FOUND: lymphedema Musculoskeletal (brief) Musculoskeletal Brief: NOT FOUND: deformity Integumentary (brief) Integumentary Brief: FOUND: dry, warm, NOT FOUND: pink (pallor) Neurologic (brief) Comments Unable to test CN. Pt responds inconsistently to verbal - opens eyes briefly. She does not follow commands or speak. She moves both arms equally and spontaneously moves both lower extremities as well. Neurologic GCS Eye Opening: (3)To Voice GCS Verbal: (1)None GCS Motor: (4)Withdraws to Pain RN Documented GCS Psychiatric (brief) NOT FOUND: alert, attentive, normal affect, oriented Laboratory Laboratory Tests Test 10/20/16 12:30 10/20/16 12:55 10/20/16 13:09 10/20/16 14:36 Arterial Blood pH 7.450 Arterial Blood Partial Pressure CO2 33MMHG Arterial Blood pO2 at Patient Temp 205MMHG Arterial Blood HCO3 23MEQ/L Arterial Blood Total CO2 23.9MEQ/L Arterial Blood Oxygen Saturation 100.0% Arterial Blood Base Excess -0.5MMOL/L Oxygen Delivery Method (LAB) Simple mask, % Blood Gas Oxygen Liter Flow 10 Blood Gas Oxygen Percent Given Blood Gas Vent Rate Blood Gas Tidal Volume ML Urine Collection Type Straight cath Urine Color Yellow Urine Turbidity Clear Urine pH 6.0 Urine Specific [place] 1.020 Urine Protein Negative Urine Glucose (UA) Negative Urine Ketones 1+ Urine Blood 2+ Urine Nitrite Negative Urine Bilirubin Negative Urine Urobilinogen 0.2EU/DL Urine Leukocyte Esterase Negative Urine RBC 5-10/HPF Urine WBC 1-3/HPF Urine Squamous Epithelial Cells 5-10 Urine Bacteria 1+ Urine Mucus Present Urine Culture Indicated Cult not indicated Urine Opiates Screen PositiveNG/ML Urine Oxycodone Screen NegativeNG/ML Urine Methadone Screen NegativeNG/ML Urine Propoxyphene Screen NegativeNG/ML Urine Barbiturates Screen NegativeNG/ML Urine Tricyclic Antidepressants NegativeNG/ML Urine Phencyclidine Screen NegativeNG/ML Urine Amphetamines Screen NegativeNG/ML Urine Methamphetamines Screen NegativeNG/ML Urine Benzodiazepines Screen PositiveNG/ML Urine Cocaine Screen NegativeNG/ML Urine Cannabinoids Screen NegativeNG/ML Urine Drug Screen Confirmation Sent out Glucometer 105mg/dL Turbidity < 20 Sodium Level 146MEQ/L Potassium Level 3.3MEQ/L Chloride Level 111MEQ/L Carbon Dioxide Level 23MEQ/L Anion Gap 12MEQ/L Blood Urea Nitrogen 8.0MG/DL Creatinine 0.7MG/DL Glomerular Filtration Rate Calc 86 BUN/Creatinine Ratio 11RATIO Glucose Level 83MG/DL Calculated Osmolality 278MOSM/KG Calcium Level 7.1MG/DL Total Bilirubin 1.00MG/DL Icterus Index < 2 Aspartate Amino Transf (AST/SGOT) 60U/L Alanine Aminotransferase (ALT/SGPT) 53U/L Alkaline Phosphatase 102U/L Total Protein 4.8G/DL Albumin 1.9G/DL Globulin 2.9G/DL Albumin/Globulin Ratio 0.7RATIO Plasma Lactate 1.5MMOL/L Procalcitonin 0.05NG/ML Prolactin 4.1NG/ML Chemistry Specimen Hemolysis < 15 Test 10/20/16 14:42 White Blood Count 9.7T/MM3 Red Blood Count 3.42M/MM3 Hemoglobin 11.1GM/DL Hematocrit 35.1% Mean Corpuscular Volume 102.6UM3 Mean Corpuscular Hemoglobin 32.5UUG Mean Corpuscular Hemoglobin Concent 31.6GM/DL RDW Standard Deviation 67.6FL Platelet Count 298T/MM3 Mean Platelet Volume 8.3UM3 Immature Granulocyte % (Auto) 0.3% Neutrophils (%) (Auto) 79.9% Lymphocytes (%) (Auto) 17.4% Monocytes (%) (Auto) 2.4% Eosinophils (%) (Auto) 0.0% Basophils (%) (Auto) 0.0% Absolute Immature Granulocyte (auto 0.03T/MM3 Absolute Neutrophils (auto) 7.8T/MM3 Absolute Lymphocytes (auto) 1.7T/MM3 Absolute Monocytes (auto) 0.2T/MM3 Absolute Eosinophils (auto) 0.0T/MM3 Absolute Basophils (auto) 0.0T/MM3 Assessment & Plan Problems: (1) Seizure Status: Acute (2) Severe sepsis Status: Acute Assessment & Plan: R/O (3) Hypokalemia Status: Acute (4) Hypernatremia Status: Acute (5) Encephalopathy Status: Acute (6) Psychosis Status: Acute (7) Elevated LFTs Status: Chronic (8) Bipolar affective disorder Status: Chronic (9) Hypothyroidism Status: Chronic (10) GERD (gastroesophageal reflux disease) Status: Chronic (11) Stage III chronic kidney disease Status: Chronic (12) Nonalcoholic steatohepatitis Status: Chronic (13) Migraine Status: Chronic (14) GIOVANA (obstructive sleep apnea) Status: Chronic (15) Hypotension Status: Chronic (16) Morbid obesity Status: Chronic Plan/Intensity of Service Admit, inpatient status to CCU. Attending: Dr. Linder. Primary care physician: Dr. Underwood. CODE STATUS: DO NOT RESUSCITATE. 1. New onset seizure disorder - Ativan PRN. NPO status. Will discuss which sz medication to start with Dr. Linder - mult allergies. Consult Dr. Mcclure. Start dexamethasone 0.15 mg/kg Q6h x 2 days. 2. Rule out severe sepsis. SIRS criteria = fever, tachycardia, tachypnea with organ dysfunction of RACK MAKER/sz activity and acute encephalopathy. Consider LP. Recent PowerPort insertion - cannot r/o bacteremia, BC drawn and pending. May need ANTONINA. Start Vancomycin; ampicillin (rxn = diarrhea); and ceftriaxone at meningitis dosing. 3. Hypokalemia - give IV K. Check mg and phos. 4. Hypernatremia - IVF. 5. Hypocalcemia - check ionized Ca level.de 6. Psychosis - psych consult after mental status improves. Orders discussed and plan formulated with Dr. Linder. Time spent at bedside and discussing with staff, review of records = 35 min. DVT Prophylaxis: SCD'S Code Status Full Code Hospital Course Summary Disclaimer The hospital course summary below is not to be considered part of the above Progress Note. Hospital Course Summary 10/20/16 Admit, inpatient status to CCU. Attending: Dr. Linder. Primary care physician: Dr. Underwood. CODE STATUS: DO NOT RESUSCITATE. 1. New onset seizure disorder - Ativan PRN. NPO status. Will discuss which sz medication to start with Dr. Linder - mult allergies. Consult Dr. Mcclure. Start dexamethasone 0.15 mg/kg Q6h x 2 days. 2. Rule out severe sepsis. SIRS criteria = fever, tachycardia, tachypnea with organ dysfunction of RACK MAKER/sz activity and acute encephalopathy. Consider LP. Recent PowerPort insertion - cannot r/o bacteremia, BC drawn and pending. May need ANTONINA. Start Vancomycin; ampicillin (rxn = diarrhea); and ceftriaxone at meningitis dosing. 3. Hypokalemia - give IV K. Check mg and phos. 4. Hypernatremia - IVF. 5. Hypocalcemia - check ionized Ca level.de 6. Psychosis - psych consult after mental status improves. JENNIFFER LINDER MD 10/20/16 6911: Past Medical History Current Medications Home Meds Reported Medications Ipratropium/Albuterol Sulfate (Iprat-Albut 0.5-3(2.5) mg/3 ml) 3 Ml Ampul.neb, 1 VIAL AEROSOL QID 10/20/16 Fluticasone Propionate (Fluticasone Prop 50 mcg/actuation Nasal Clint) 120 Clint /16 G Clint, 2 SPRAY EA NOSTRIL DAILY 10/20/16 Quetiapine Fumarate (Seroquel) 50 Mg Tablet, 50 MG PO DAILY Y for HALLUCINATIONS 10/20/16 Acetaminophen (Acetaminophen) 325 Mg Tablet, 325 MG PO QID Y for PAIN 10/20/16 Lorazepam (Lorazepam) 0.5 Mg Tablet, 0.5 MG PO DAILY Y for ANXIETY 10/20/16 Sumatriptan Succinate (Imitrex) 50 Mg Tablet, 50 MG PO 2XW Y for PAIN 10/20/16 Hydrocodone/Acetaminophen (Luxor 5-325 Tablet) 5-325 Tablet, 1 TAB PO Q6H Y for PAIN 10/20/16 Benzonatate (Benzonatate) 100 Mg Capsule, 100 MG PO TID Y for COUGH 10/20/16 Potassium Chloride (Potassium Chloride) 20 Meq Tablet.er, 20 MEQ PO WB 10/20/16 Lorazepam (Lorazepam) 0.5 Mg Tablet, 0.5 MG PO DAILY 10/20/16 Guaifenesin/Dextromethorphan (Mucinex Dm ER 600-30 mg Tablet) 1 Each Tab.er.12h , 1 TAB PO Q12H 10/20/16 Cholecalciferol (Vitamin D3) (Vitamin D-3) 2,000 Unit Tablet, 2000 UNIT PO DAILY 10/18/16 Thiamine HCl (Vitamin B-1) 50 Mg Tablet, 50 MG PO DAILY 10/18/16 Folic Acid (Folic Acid) 1 Mg Tablet, 2 MG PO DAILY 10/18/16 Quetiapine Fumarate (Seroquel) 50 Mg Tablet, 50 MG PO DAILY 10/17/16 Ondansetron HCl (Ondansetron HCl) 4 Mg Tablet, 4 MG PO Q6HR Y for NAUSEA &/OR VOMITING 09/09/16 Metoclopramide HCl (Metoclopramide HCl) 5 Mg Tablet, 5 MG PO AC Y for ACID REFLUX 09/09/16 Levothyroxine Sodium (Levothyroxine Sodium) 150 Mcg Tablet, 150 MCG PO ACB 09/05/16 Bupropion HCl (Bupropion Xl) 150 Mg Tab.er.24h, 150 MG PO DAILY 07/11/16 Discontinued Scripts Potassium Chloride (Potassium Chloride) 20 Meq/15 Ml Liquid, 20 MEQ PO TIDWM for 5 Days, OZ Take 15 ml, by mouth, three times a day with meals. MUST be diluted before giving. Prov:ROM PEARCE APRN, CWS 10/15/16 Allergies: Coded Allergies: divalproex sodium (Verified Allergy, Severe, FACE SWELLS, 10/20/16) Sulfa (Sulfonamide Antibiotics) (Verified Allergy, Intermediate, RASH, ) phenazopyridine HCl (Verified Allergy, Intermediate, RASH, 10/20/16) gentamicin (Verified Allergy, Unknown, 10/20/16) phenazopyridine (Verified Allergy, Unknown, 10/20/16) levofloxacin (Verified Adverse Reaction, Severe, HALLUCINATIONS, 10/20/16) psychosis ampicillin (Verified Adverse Reaction, Mild, DIARRHEA, 10/20/16) Uncoded Allergies: Dantrisin (Allergy, Intermediate, RASH, 08/01/10) Assessment & Plan Assessment I have independently evaluated and examined this patient. I reviewed the chart, the patient's history, and the EXCEL SPECIALIST's documented findings as above. We discussed and formulated the assessment and plan as above with additions as below: Case discussed with Dr. Epstein and with Isabella Rosales APRN. I've additionally discussed severity of patient's illness with the patient's mother/DPOA who is at bedside in the ICU when I saw the patient. Elina presented today with fever in conjunction with new onset left sided tonic-clonic seizure after multiple medication changes recently. Her mother reports that she's been nonverbal for the past 3-4 days. Maximum temperature since arrival at the hospital as 103.0. At least 2 seizures have been documented this afternoon. On examination Elina opened her eyes spontaneously briefly, gaze is conjugate, pupils round and react briskly to light and sclerae are anicteric. The patient' s neck rotates and flexes with minimal difficulty although I can only flex her neck about 45. Breath sounds are diminished but clear anteriorly, abdomen is diffusely mildly tender-chronic. The patient is using her upper arms spontaneously to rearrange blankets and withdraws her lower extremities to painful stimuli. CT head reviewed by myself demonstrating no acute intracranial pathology. DO NOT RESUSCITATE order confirmed with the patient's mother. With new onset seizures and the presence of fever optimally spinal tap would be pursued prior to initiation of antibiotics for meningitis. This was discussed with the patient's mother and additional family member at bedside. After discussion decision was made to treat empirically and avoid interventions. I am concerned that based on Noa's chronic back problems lumbar puncture may require imaging which would require transfer to accommodate. Accordingly she will be treated with dexamethasone, vancomycin, ampicillin, and ceftriaxone of meningitis dose. Blood cultures have been obtained. If anything is identified in blood cultures will need to reconsider Port-A-Cath and redraw cultures through the line and peripherally. Port-A-Cath accessed in being utilized-no peripheral IV access available. May require placement of PICC line if cultures drawn per PAC positive. No history of past seizure per mother's history-if has additional seizures this evening we will initiate Dilantin IV due to history of Keppra allergy. Ativan if needed. Prognosis poor, patient has had progressive functional decline over the past 4- 5 months. Plan/Intensity of Service Critically ill, data reviewed as above. Patient examined in detail, in-depth family discussion with mother/DPOA. 35" at bedside and additional time spent in chart review/documentation. DVT Prophylaxis: SCD'S ISABELLA ROSALES APRN Oct 20, 2016 15:39 JENNIFFER LINDER MD Oct 20, 2016 18:24
[2016-10-20] MEDS: DEXAMETHASONE 4mg/ml - 1ml INJECTION IV SCH ×2 (17:59→23:30)
[2016-10-20] MEDS: CEFTRIAXONE 2 G in NORMAL SALINE 100 ML IV SCH (18:00)
[2016-10-20] MEDS: POTASSIUM CHLORIDE 10 MEQ, LIDOCAINE 1% 10 MG in NORMAL SALINE 100 ML IV SCH ×4 (18:00→20:27)
[2016-10-20 18:11] LABS: IONIZED CALCIUM 0.97 MMOL/L (1.12-1.32)
[2016-10-20 18:18] LABS: MAGNESIUM 1.7 MG/DL (1.6-2.3); PHOSPHORUS 2.6 MG/DL (2.5-4.5)
[2016-10-20] MEDS: ALBUTEROL/IPRATROPIUM INHAL. 2.5mg-0.5mg/3ml Neb. AEROSOL SCH (18:52)
[2016-10-20] MEDS ORDERED: VANCOMYCIN 2,000 MG in NORMAL SALINE 500 ML IV ONE (19:00)
[2016-10-20] MEDS: AMPICILLIN 2 G in NORMAL SALINE 100 ML IV SCH (22:49)
[2016-10-21] VITALS (35 sets, daily range): BP systolic 94–117; BP diastolic 54–77; PULSE 76–91; RESP 2–25; TEMP 97–98.4; O2SAT 91–100
[2016-10-21] MEDS: AMPICILLIN 2 G in NORMAL SALINE 100 ML IV SCH ×6 (01:57→21:13)
[2016-10-21] MEDS: NORMAL SALINE 1,000 ML IV SCH (03:49)
[2016-10-21] MEDS: DEXAMETHASONE 4mg/ml - 1ml INJECTION IV SCH ×4 (06:15→23:18)
--- NOTE | 2016-10-21 06:30 | NUR ---
STATUS PT HAS BEEN RESTING IN BED PEACEFULLY FOR ALL OF THIS SHIFT, AT START OF SHIFT WOULD ONLY OPEN EYES TO RESPOND TO NAME, THIS MORNING SHE ANSWER QUESTIONS AND IS SLIGHTLY MORE VERBAL. VSS, NO EPILEPTIC EPISODES NOTED, NO FEVERS, WILL CONTINUE TO MONITOR.
[2016-10-21] MEDS: ALBUTEROL/IPRATROPIUM INHAL. 2.5mg-0.5mg/3ml Neb. AEROSOL SCH ×4 (07:52→19:40)
[2016-10-21] MEDS: CEFTRIAXONE 2 G in NORMAL SALINE 100 ML IV SCH ×2 (08:36→19:58)
[2016-10-21] MEDS: VANCOMYCIN 1,500 MG in NORMAL SALINE 500 ML IV SCH ×2 (09:22→22:07)
[2016-10-21 10:05] LABS: HCT - HEMATOCRIT 32.1 % (36-46); HGB - HEMOGLOBIN 9.9 GM/DL (12-16); IMMATURE GRANULOCYTE # (AUTO) 0.02 T/MM3 (0.00-0.03); IMMATURE GRANULOCYTE % (AUTO) 0.4 % (0.0-0.5); MEAN CORPUSCULAR HGB 32.2 UUG (26-34); MEAN CORPUSCULAR HGB CONC(MCHC 30.8 GM/DL (31-37); MEAN CORPUSCULAR VOLUME 104.6 UM3 (80-100); MEAN PLATELET VOLUME 8.7 UM3 (9.4-12.4); MONOCYTES % (AUTO) 0.8 % (0-9.0); NEUTROPHILS #(AUTO)-ABSOLUTE 4.2 T/MM3 (1.8-7.7); NEUTROPHILS % (AUTO) 79.8 % (33-66); RED BLOOD COUNT 3.07 M/MM3 (4.00-5.20); WBC - WHITE BLOOD COUNT 5.3 T/MM3 (4.5-11.0)
[2016-10-21 10:14] LABS: ALBUMIN 1.8 G/DL (3.5-5.0); ANION GAP 9 MEQ/L (5-15); BUN/CREATININE RATIO 10 RATIO (6-26); CALCIUM 6.8 MG/DL (8.4-10.2); CHLORIDE 115 MEQ/L (98-107); CO2 - CARBON DIOXIDE 23 MEQ/L (22-30); CREATININE 0.6 MG/DL (0.7-1.2); GLOMERULAR FILTRATION RATE 103; GLUCOSE 110 MG/DL (65-110); MAGNESIUM 1.8 MG/DL (1.6-2.3); POTASSIUM 3.3 MEQ/L (3.6-5); SODIUM 147 MEQ/L (134-144)
--- NOTE | 2016-10-21 10:34 | NUR ---
Status Pt is more responsive this shift than yesterday. Pt will open eyes when name was called. Pt was able to state birthdate and current location. pt has also asked for something to drink. Pt wiggles toes when asked and squeezes hands appropriately when asked. Will continue to monitor.
[2016-10-21] MEDS ORDERED: ACETAMINOPHEN 325 MG TABLET PO PRN (11:45)
--- NOTE | 2016-10-21 11:58 | PNPDOC ---
Subjective Date DATE: 10/21/16 TIME: 11:23 Subjective Elina is arousable to voice today and able to tell me that she has a headache- different than her usual migraines. She complains of her "stomach" and back pain. She was unable to tell me when her last epidural injection was or provide details about symptoms noted above. Nursing reports a single loose stool this morning but resolution of fever. Oxygen has been titrated down progressively overnight. There's been no recurrent seizure activity or tremulousness. Objective Vital Signs Vital signs Vital Signs Date Time Temp Pulse Resp B/P Pulse Ox O2 Delivery O2 Flow Rate FiO2 10/21/16 11:10 83 10/21/16 10:26 25 10/21/16 08:00 97.6 106/57 97 Nasal Cannula 2.00 I/O 3750/1088 EXAM General-NAD, drowsy, responds to questions inconsistently, slow verbal responses HEENT-PER-3 mm, pupils react to light the patient squeezes eyes closed tightly with attempts to visualize. Sclera anicteric, conjunctiva clear, gaze conjugate , oral membranes are clear although visualization limited by patient compliance. Neck rotates without resistance, flexion limited to 40-45 and patient indicates discomfort with anterior movement. Lungs-decreased inspiratory effort, breath sounds diminished (especially laterally on the right) but clear Cardiac-regular rhythm, S1-S2 Abd-obese, soft, nontender, diminished bowel sounds Ext-without edema Neuro-moving upper extremities spontaneously, withdraws lower extremities to stimulation, seat covers trimmer with hands bilaterally-seat covers trimmer 4/5 bilaterally Psych-oriented to name and hospital, psychomotor retardation, flat affect Height (Feet): 5 Height (Inches): 2.00 Weight (Kilograms): 78.000 Laboratory Laboratory Laboratory Tests 10/20/16 14:36 10/21/16 09:44 Calcium 6.8, phosphorus 3.0, magnesium 1.8, albumin 1.8 Laboratory Tests 10/20/16 14:42 10/21/16 09:44 Segs 80, lymphocytes 19, monocytes 1 Microbiology Microbiology Microbiology Date/Time Source Procedure Growth Status 10/20/16 14:36 Peripheral/Iv Start Blood Culture - Preliminary CULTURE INITIATED - RESULTS PENDING Resulted 10/20/16 13:17 Peripheral/Iv Start Blood Culture - Preliminary CULTURE INITIATED - RESULTS PENDING Resulted Sepsis Diagnostic Criteria Sepsis SIRS Criteria: Acute mental status chg (seizure), Temp<=96.8 or >=100.4, Pulse >= 90 beats/min, RR > or = to 20 Severe Sepsis SpO2 <90% or ventilated (seizure) Assessment & Plan Problems: (1) Seizure Status: Acute (2) Severe sepsis Status: Acute Assessment & Plan: R/O (3) Hypokalemia Status: Acute (4) Hypernatremia Status: Acute (5) Encephalopathy Status: Acute (6) Psychosis Status: Chronic (7) Elevated LFTs Status: Chronic (8) Bipolar affective disorder Status: Chronic (9) Hypothyroidism Status: Chronic (10) GERD (gastroesophageal reflux disease) Status: Chronic (11) Stage III chronic kidney disease Status: Chronic (12) Nonalcoholic steatohepatitis Status: Chronic (13) Migraine Status: Chronic (14) GIOVANA (obstructive sleep apnea) Status: Chronic (15) Hypotension Status: Chronic (16) Morbid obesity Status: Chronic (17) Migraines Status: Chronic (18) Chronic pain syndrome Status: Chronic (19) Major depression Status: Chronic (20) Macrocytic anemia Status: Chronic Assessment & Plan: B12 988 09/21 Assessment Elina is more interactive today although remains below baseline. Will clarify when last epidural injection was with her mother-may require imaging of lumbar spine. Cultures pending. Continue current antibiotics and steroids for empiric meningitis coverage, will readdress possible lumbar puncture under fluoroscopy tomorrow recognizing that cultures are unlikely to be interpretable at that time. No recurrent seizures, Recurrent headaches/generalized pain, minimize narcotics due to seizure activity yesterday. Resume psychiatric medications. Persistent hypernatremia and hyperkalemia-IV fluids changed to half normal with potassium. Persistent hypocalcemia however corrects for degree of hypoalbuminemia-no further supplement indicated. Hemoglobin down with hydration, degree of anemia greater than in the past. B-12 known to be normal. Check iron studies despite macrocytosis. Reassess TSH, levothyroxine dose has varied in multiple admissions recently and TSH elevated in September. Remains at high risk for complications despite improvement seen overnight. Plan/Intensity of Service Critically ill, old records reviewed, laboratory data reviewed, chest x-ray ordered discussed with nursing who provide supplemental history. DVT Prophylaxis: SCD'S Code Status Do Not Resuscitate Hospital Course Summary Disclaimer The hospital course summary below is not to be considered part of the above Progress Note. Hospital Course Summary 10/20/16 Admit, inpatient status to CCU. Attending: Dr. Linder. Primary care physician: Dr. Underwood. CODE STATUS: DO NOT RESUSCITATE. 1. New onset seizure disorder - Ativan PRN. NPO status. Will discuss which sz medication to start with Dr. Linder - mult allergies. Consult Dr. Mcclure. Start dexamethasone 0.15 mg/kg Q6h x 2 days. 2. Rule out severe sepsis. SIRS criteria = fever, tachycardia, tachypnea with organ dysfunction of FLORICULTURE TEACHER/sz activity and acute encephalopathy. Consider LP. Recent PowerPort insertion - cannot r/o bacteremia, BC drawn and pending. May need ANTONINA. Start Vancomycin; ampicillin (rxn = diarrhea); and ceftriaxone at meningitis dosing. 3. Hypokalemia - give IV K. Check mg and phos. 4. Hypernatremia - IVF. 5. Hypocalcemia - check ionized Ca level.de 6. Psychosis - psych consult after mental status improves. 10/21-Kailash Antoine is more interactive today although remains below baseline. Will clarify when last epidural injection was with her mother-may require imaging of lumbar spine. Cultures pending. Continue current antibiotics and steroids for empiric meningitis coverage, will readdress possible lumbar puncture under fluoroscopy tomorrow recognizing that cultures are unlikely to be interpretable at that time. No recurrent seizures, Recurrent headaches/generalized pain, minimize narcotics due to seizure activity yesterday. Resume psychiatric medications. Persistent hypernatremia and hyperkalemia-IV fluids changed to half normal with potassium. Persistent hypocalcemia however corrects for degree of hypoalbuminemia-no further supplement indicated. Hemoglobin down with hydration, degree of anemia greater than in the past. B-12 known to be normal. Check iron studies despite macrocytosis. Reassess TSH, levothyroxine dose has varied in multiple admissions recently and TSH elevated in September. Remains at high risk for complications despite improvement seen overnight. JENNIFFER LINDER MD Oct 21, 2016 11:32
[2016-10-21] MEDS: POTASSIUM CHLORIDE 40 MEQ in 1/2 NS 1,000 ML IV SCH ×2 (13:18→21:57)
--- NOTE | 2016-10-21 14:06 | DI ---
Indication: ITS.REASON: ms change, sepsis, seizure PROCEDURE: CT HEAD W/O CONTRAST: Encounter: Initial Comparison: September 10, 2016 Technique: Axial CT images through the head were performed without contrast. Iterative Reconstruction dose reducing technique was utilized. FINDINGS: The ventricles are of normal size, shape, and contour for the patient's age. There are scattered areas of low attenuation in the white matter which most likely represent changes from chronic microvascular ischemia. The brainstem, cerebellum, and cerebral hemispheres otherwise have a normal morphology and CT attenuation. There is no evidence of midline displacement. No hemorrhage, signs of acute territorial stroke, mass effect, mass lesions, or edema is evident. The visualized portions of the skull base, midface, and calvarium demonstrate no abnormality. The paranasal sinuses are well aerated and free of significant disease. The tympanic and mastoid cavities appear normal. IMPRESSION: No acute intracranial abnormality or hemorrhage. There is a preliminary report by virtual radiologic. .
--- NOTE | 2016-10-21 14:29 | DI ---
Indication: ITS.REASON: fever. hypoxia PROCEDURE: CHEST 1 VIEW: Encounter: Initial Comparison: September 25, 2016 Findings: Lungs are stable with hypoinflation. No obvious pneumonia, gross pleural effusion or pneumothorax. Cardiomediastinal contours are stable. New right internal jugular approach central venous catheter projects with the tip over the superior SVC. Impression: No focal pneumonia. .
--- NOTE | 2016-10-21 17:51 | NUR ---
Status Pt has slept on and off this afternoon. Frequent loose stool. Barrier cream applied to bottom. Offered pt drink of water. Pt refused stating "you guys did something to the water". Reassured pt we did not. Family also at bedside during this and also stated it was fine to drink water. Pt then states "i'm too tired to take a drink". Will continue to monitor.
[2016-10-22] VITALS (32 sets, daily range): BP systolic 104–126; BP diastolic 55–77; PULSE 71–101; RESP 0–23; TEMP 96.8–98.4; O2SAT 90–100
[2016-10-22] MEDS: AMPICILLIN 2 G in NORMAL SALINE 100 ML IV SCH ×6 (01:14→22:51)
[2016-10-22] MEDS ORDERED: MORPHINE 10mg/ml vl INJECTION IV PRN (02:45)
[2016-10-22] MEDS ORDERED: KETOROLAC 15mg/ml INJECTION IV PRN (02:45)
[2016-10-22] MEDS: MORPHINE SULFATE 2 MG SYRINGE IV PRN (02:46)
[2016-10-22 03:42] LABS: HCT - HEMATOCRIT 31.6 % (36-46); HGB - HEMOGLOBIN 9.6 GM/DL (12-16); MEAN CORPUSCULAR HGB CONC(MCHC 30.4 GM/DL (31-37); MEAN CORPUSCULAR VOLUME 105.3 UM3 (80-100); MEAN PLATELET VOLUME 9.1 UM3 (9.4-12.4); WBC - WHITE BLOOD COUNT 8.5 T/MM3 (4.5-11.0)
[2016-10-22 03:50] LABS: IRON 17 UG/DL (37-170)
[2016-10-22 03:58] LABS: IRON % SAT (TRANSF %SAT)(CALC) 14 % (9-55); TOTAL IRON BINDING CAPACITY 124 UG/DL (261-497)
[2016-10-22 04:08] LABS: ANION GAP 11 MEQ/L (5-15); BUN/CREATININE RATIO 16 RATIO (6-26); CALCIUM 7.3 MG/DL (8.4-10.2); CHLORIDE 116 MEQ/L (98-107); CO2 - CARBON DIOXIDE 21 MEQ/L (22-30); CREATININE 0.5 MG/DL (0.7-1.2); GLOMERULAR FILTRATION RATE 127; GLUCOSE 92 MG/DL (65-110); POTASSIUM 3.4 MEQ/L (3.6-5); SODIUM 148 MEQ/L (134-144)
[2016-10-22] MEDS: DEXAMETHASONE 4mg/ml - 1ml INJECTION IV SCH ×3 (05:03→17:42)
[2016-10-22] MEDS: POTASSIUM CHLORIDE 40 MEQ in 1/2 NS 1,000 ML IV SCH ×3 (05:55→22:52)
[2016-10-22 06:26] LABS: ANISOCYTOSIS 1+; BAND NEUTROPHILS # 0.2 T/MM3; LYMPHOCYTES # (MANUAL) 0.7 T/MM3 (1-4.8); MONOCYTES # (MANUAL) 0.1 T/MM3 (0-0.8); NEUTROPHILS #(MANUAL)-ABSOLUTE 7.6 T/MM3 (1.8-7.7); TOTAL CELLS COUNTED 100 %
--- NOTE | 2016-10-22 06:35 | NUR ---
Status Slept off and on during the night. C/o pain, however unable to express location of pain or rate pain. Pt declines PO Tylenol and suppository tylenol. RN contacted Dr. Rao. PRN order for Morphine received and administered. Pt rested well following administration. Several incontinent stools. Repositioned. Pt continues to be minimally responsive, at times - just stares blankly at RN until RN addresses pt by name. Will answer with short answers. Seems to be responding more as morning approaches.
[2016-10-22] MEDS: ALBUTEROL/IPRATROPIUM INHAL. 2.5mg-0.5mg/3ml Neb. AEROSOL SCH ×3 (07:45→15:45)
[2016-10-22] MEDS: LORAZEPAM 0.5 MG TABLET PO SCH (08:43)
[2016-10-22] MEDS: QUETIAPINE 50 MG TABLET PO SCH (08:44)
[2016-10-22] MEDS: BuPROPion XL (24 HR) 150 MG TABLET PO SCH (08:44)
--- NOTE | 2016-10-22 08:45 | DI ---
Indication: ITS.REASON: hypoxia PROCEDURE: CHEST 1 VIEW: Encounter: Initial Comparison: October 20, 2016 Findings: Aeration of the lungs is slightly better. No new infiltrates. No gross pleural effusion or pneumothorax. Heart size and mediastinal contours are stable. Impression: No acute cardiopulmonary disease. .
[2016-10-22] MEDS: CEFTRIAXONE 2 G in NORMAL SALINE 100 ML IV SCH ×2 (08:47→21:17)
[2016-10-22 08:50] LABS: CREATININE 0.6 MG/DL (0.7-1.2)
--- NOTE | 2016-10-22 10:10 | NUR ---
VANCOMYCIN CONSULT: Vancomycin Trough = 24 mcg/ml. Today's SCr = 0.6 mg/dl. Est. Creatinine Clearance = 98 mL/min I will change the Vancomycin to 1,250 mg IV q12hrs(0000/1200), starting today @ 1200 . The Pharmacy will continue to monitor and make adjustments accordingly. Thank you for the Vancomycin Protocol, Ozzie Villarreal RPh.
--- NOTE | 2016-10-22 10:49 | CONSF ---
DATE OF CONSUL 10/22/[address] Traci Linder CHIEF COMPLAINT The patient's chief complaint is seizure and mental status change. HISTORY OF PRESENT ILLNESS The patient is a 56-year-old female with history of diffuse arthritic changes with gait problem, gastritis, hypothyroidism, migraine headache, hypotension, morbid obesity and bipolar disorder. The patient was found to be very lethargic and not very responsive at the custodial. She was brought to the hospital several times in the past few months for recurrent urinary tract infection and sepsis. Her condition got worse recently and at the ER she had a seizure described as left-sided tonic-clonic activity associated with eye opening and eyes rolling back. Her seizure lasted for about 3 minutes. She had another a seizure 10 minutes later. The patient was given Valium and Ativan and her seizures eventually subsided. The patient continues to be treated for a urinary tract infection. Her chest x-ray was unremarkable. She had a CT head that showed no acute brain lesion. The patient's labs have been showing evidence of chronic anemia and dehydration problem with elevated sodium of 148. The patient's prolactin level was 4.1 and normal. The patient is currently a little bit better. She is awake and alert. She is very drowsy and she has had no motivation to speak or move. PHYSICAL EXAMINATION On physical examination the patient was awake, alert, oriented to self. She has no recollection of the event that led to her admission. Her pupils were round, reactive and equal. Extraocular muscles were intact. Visual field was difficult to assess. Speech was very slow and hesitant. Motor examination was very limited by arthritis problem in the shoulders and knees and is graded as 4 to 4+/5 on the right and 4- to 4/5 on the left. Sensory examination was slightly diminished on the right compared to the left. Deep tendon reflexes were 2-/4. Plantar reflexes were downgoing bilaterally. Coordination for [id number] was slow and slightly dysmetric bilaterally. ASSESSMENT 1. Metabolic encephalopathy associated with urinary tract infection and sepsis. 2. New-onset focal seizure with complex partial presentation and alteration of consciousness. PLAN 1. Obtain MRI of the brain with and without contrast to rule out any focal brain lesion including old stroke and injuries to the brain. 2. Start patient on Trileptal 300 mg p.o. b.i.d. to help with seizure prevention and mood disorder. 3. Correct metabolic derangement including the elevated sodium level which can be associated with increased seizure risk. 4. Continue treatment for UTI and sepsis. 5. Provide good fluid intake and seizure precautions. Thank you. FRANSISCO
[2016-10-22] MEDS ORDERED: LORAZEPAM 2 MG/ML INJECTION IV ONE (11:00)
[2016-10-22] MEDS ORDERED: GADOBUTROL 10mMol/10ml INJECTION IV ONE (12:21)
[2016-10-22] MEDS ORDERED: SALINE FLUSH 10ml SYRINGE ONE (12:21)
[2016-10-22] MEDS: OXCARBAZEPINE 300 MG TABLET PO SCH ×2 (13:09→20:10)
[2016-10-22] MEDS: NYSTATIN 500,000 units/5ml Susp UD PO SCH ×3 (13:09→20:10)
[2016-10-22] MEDS: VANCOMYCIN 1,250 MG in NORMAL SALINE 250 ML IV SCH (13:12)
--- NOTE | 2016-10-22 14:31 | STEVAL ---
Eval Subjective and History Date/Time of Eval DATE: 10/22/16 TIME: 09:07 Medical Diagnosis Seizure, Sepsis, Hypernatremia, Hypocalcemia Orientations: x 3, Alert, Cooperative Primary Complaint: Acute Encephalopathy Pain: Yes (Pt. reported her head hurt. Nurse was notified. ) Date of Onset of Primary Com: Admit 10/20/16 Patient's Goals: Goals not stated from patient Significant Past Medical Hx: GERD, Hypotension, Morbid Obesity, Nonalcoholic steatohepatitis, Gastritis, Hypothyroidism, Migraine Disorder, OAS on CPAP, Chronic Pain, Bipolar Disorder Medical History Form Reviewed: Yes Residence Type: Correction Lives With: Alone Person(s) Educated: Patient Instruction Understanding Demo: Pt. demos understanding (Patient utilized guestures (nodding head) more than verbally expressing yes/no during evaluation) Education Comment MARINE ENGINEER educated patient on reasoning for evaluation. Patient was agreeable to evaluation. Subjective and History Comment: Patient had limited verbal expression during the evaluation; however, nodded her head to answer yes/no. Pt. was accepting to have airport control operator, Craig, complete the evaluation with supervision from MARINE ENGINEER Armida. Dysphagia Evaluation Evaluation Location: Bed (Pt. was initially laying down in bed. Bed moved to 90 degrees for evaluation. ) Evaluation Angle: 90 Oral Peripheral Exam-facial: Facial Symmetry: No Impairment (WFL) Tongue Elevation: No Impairment (WFL) Tongue Lateralization: No Impairment (WFL) Tongue Protrusion: No Impairment (WFL) Tongue Retraction: No Impairment (WFL) Tongue Extension Midline: No Impairment (WFL) Labial Approximation: No Impairment (WFL) Intraoral Air Pressure: No Impairment (WFL) Volitional Cough: No Impairment (WFL) Palatal Elevation: Unable to Elicit (Palatal elevation was not viewed) Larynx Elevation During Swallo: Moderate Impairment (Laryngeal elevation reduced ) Saliva Control: No Impairment (WFL) Dentition: Dentures, Upper, Lower Oral Peripheral Exam Comment: The patient was first assessed with an oral mechanism exam. The Pt. demonstrated adequate coordination and lingual movement. Pt. exhibited a sensitive gag reflux with defensive tongue position when clinician utilized tongue depressor during exam. Adequate labial closure was noted. Pt. demonstrated weak a voice when asked to produce "ah". Pt. declined not to wear her dentures during exam, she reported that they did not fit. Lip Seal: Adequate-liquid, Adequate-pudding Lingual Manipulation: Adequate-liquid, Adequate-pudding Chewing: Adequate-pudding Oral cavity clear post swallow: Adequate-liquid, Adequate-pudding Swallow initiated w/o delay: Adequate-liquid, Adequate-pudding Multiple swallows not needed: Adequate-liquid, Adequate-pudding Voice clear&dry post swallow: Adequate-liquid, Adequate-pudding No cough/throat clear: Adequate-liquid, Adequate-pudding Comments Pt. was given trials of thin water, thickened lemon flavored water, and vanilla pudding. Pt. refused to have the thickened flavored water; however, she accepted the thin water and pudding. Pt. had adequate lip seal and lingual manipulation during all trials. Pt. demonstrated a clear oral cavity after trials of pudding with no delay of swallows on any consistency. Pt. produced a clear, dry voice; however, her voice was weak during the entire evaluation. Pt. produced no cough or throat clear. Pt. was given her medication during this evaluation and would benefit from having pills crushed and mixed with pudding. Assessment/Plan of Care Speech Therapy Impressions: The patient was first assessed with an oral mechanism exam. Pt. has a small oral opening which resulted in not being able to view palatal elevation. The Pt. demonstrated adequate coordination and lingual movement. Pt. exhibited a sensitive gag reflux with defensive tongue position when clinician utilized tongue depressor during exam. Adequate labial closure was noted. Pt. demonstrated a weak voice when asked to produce "ah". Pt. requested not to wear her dentures during exam. Pt. was given trials of thin water, thickened lemon flavored water, and vanilla pudding for dysphagia evaluation. Pt. refused to have the thickened flavored water; however, she accepted the thin water and pudding. Pt. had adequate lip seal and lingual manipulation during all trials. Pt. demonstrated a clear oral cavity after trials of pudding with no delay of swallows on any consistency. Pt. produced a clear, dry voice; however, her voice was weak during the entire evaluation. Pt. produced no cough or throat clear. Pt. was given her medication during this evaluation and would benefit from having pills crushed and mixed with pudding. Usp Goal: Pt will maintain nutrition and hydration of the least restrictive diet while demonstrating no s/s of aspiration. Short Term Goal: Pt will consume a pureed consistency with nectar thick liquids without outward signs of aspiration at bedside during meals. Pt will demonstrate 3 out of 3 components necessary for a safe swallow as listed from the following: sitting up at 90 degrees, alternating between pureed food and nectar thick liquids, taking small bites/sips. ST Treatment Plan: Swallow Precautions, Modified Diet ST Treatment Plan Frequency: one time per week Treatment Plan Duration: one week Plan of Care Comment Implement Dysphagia Diet and recommended goals. Recommended Diet: Dysphagia Diet: pureed consistency, nectar thick liquid, sips of thin water with supervision. Date of Visit 10/22/16 Time Visit Began: 08:30 Time Visit Ended: 09:03 Assess/Plan of Care: ST Treatment Charge: Natalie Cochran Minutes of Individual Therapy: 33 CRAIG MARTE Oct 22, 2016 09:10
--- NOTE | 2016-10-22 14:58 | DI ---
Indication: ITS.REASON: new onset seizure, focal-left sided PROCEDURE: MRI BRAIN W/WO CONTRAST: Encounter: Initial Comparisons: Head CT dated October 20, 2016 Technique: Multiplanar, multisequence, MR imaging of the head with and without contrast was acquired. Contrast: 8.5 mL of Gadavist FINDINGS: Severe motion artifact limits the axial T2 sequence. This is essentially nondiagnostic. Motion artifact also degrades several of the other sequences. The ventricles are grossly normal. There are small nonspecific punctate areas of T2-weighted and T2 FLAIR weighted signal abnormality in the deep frontoparietal white matter that most likely represent small vessel ischemic disease. This is of a degree that is considered to be normal for the patient's age. No obvious intracranial hemorrhage or mass. No hydrocephalus. The visualized portions of the orbits, calvarium, paranasal sinuses, and skull base demonstrate no gross abnormality. IMPRESSION: Severely limited exam due to motion artifact. No gross acute intracranial abnormality. .
--- NOTE | 2016-10-22 15:00 | NUR ---
SUMMARY Patient very slow responding this am. Has become more alert as the day has progressed. Did have an MRI done w/o difficulty. Has been able to feed herself this afternoon. Marginal urine output continues. O2 being weaned down. Has swallowed pills this afternoon w/o difficulty and taken water as well.
--- NOTE | 2016-10-22 15:11 | NUR ---
CM THIS WORKER MET WITH PT ON THIS DATE. ALSO PRESENT WAS PT'S SISTER. PT WAS SITTING UP IN BED AND EATING LUNCH. THIS WORKER INTRODUCED SELF AND ROLE OF CASE MANAGEMENT. PT HAD MINIMAL RESPONSES TO QUESTIONS. THIS WORKER INQUIRED REGARDING LIVING ARRANGEMENTS. PT RESPONDED THAT SHE DOES LIVE AT [facility]. THIS WORKER INQUIRED IF PT WOULD PLAN TO RETURN THERE. PT NODDED HER HEAD IN AGREEMENT AND SISTER ALSO CONFIRMED. THIS WORKER LEFT CONTACT INFORMATION FOR PT IN ROOM AND NAME WAS WRITTEN ON WHITEBOARD IN ROOM. CASE MANAGEMENT WILL CONTINUE TO FOLLOW AND ASSIST IN DISCHARGE PLANNING.
--- NOTE | 2016-10-22 18:00 | NUR ---
STATUS MOTHER HERE TO SEE PT. PT HAVING HALLUCINATIONS AT TIMES. DENIES PAIN. HOB UP.
[2016-10-22] MEDS ORDERED: POTASSIUM CHLORIDE 10 MEQ TABLET PO SCH (19:45)
--- NOTE | 2016-10-22 19:53 | PNPDOC ---
Subjective Date DATE: 10/22/16 TIME: 19:35 Subjective Elina was more alert today and complained of headache, back pain, and leg pain. She additionally complained of dyspnea, chest pain, nausea, diarrhea, and lightheadedness. She told me that ampicillin always causes diarrhea but did not want to consider lumbar puncture to permit narrowing of antibiotics. Objective Vital Signs Vital signs Vital Signs Date Time Temp Pulse Resp B/P Pulse Ox O2 Delivery O2 Flow Rate FiO2 10/22/16 15:54 83 10/22/16 15:45 16 99 10/22/16 13:00 126/70 Nasal Cannula 10/22/16 12:00 97.8 2.00 I/O 3600/973 EXAM General-NAD, drowsy, weak voice HEENT-PER, EOMI, conjunctiva clear, tongue with white plaques consistent with thrush; neck rotates and flexes easily today Lungs-respirations nonlabored, diminished airflow but anterior breath sounds clear Cardiac-regular rhythm, S1-S2 Abd-obese, soft, mild diffuse tenderness without guarding, bowel sounds present Ext-without edema distally Neuro-generalized weakness-lower extremities weaker than upper extremities Skin-without rash Psych-oriented 3, flat affect Height (Feet): 5 Height (Inches): 2.00 Weight (Kilograms): 85.400 Laboratory Laboratory Laboratory Tests 10/21/16 09:44 10/22/16 03:11 10/22/16 08:22 Laboratory Tests 10/21/16 09:44 10/22/16 03:11 Segs 89, bands 2, lymphocytes 8, monocytes 1 Iron 17, TIBC 124, saturation 14% TSH 1.41 Microbiology Microbiology Microbiology Date/Time Source Procedure Growth Status 10/20/16 14:36 Peripheral/Iv Start Blood Culture - Preliminary NO GROWTH AFTER 48 HOURS Resulted 10/20/16 13:17 Peripheral/Iv Start Blood Culture - Preliminary NO GROWTH AFTER 48 HOURS Resulted Radiology Chest x-ray reviewed by myself demonstrating improved aeration compared to admission and no infiltrates. MRI of the brain with and without contrast also reviewed by myself demonstrating no focal abnormalities and motion artifact. Radiology reports small ischemic vessel disease consistent with age in the deep frontoparietal white matter on flare imaging. Sepsis Diagnostic Criteria Sepsis SIRS Criteria: Acute mental status chg (seizure), Temp<=96.8 or >=100.4, Pulse >= 90 beats/min, RR > or = to 20 Severe Sepsis SpO2 <90% or ventilated (seizure) Assessment & Plan Problems: (1) Seizure Status: Acute Assessment & Plan: Left focal motor (2) Severe sepsis Status: Acute Assessment & Plan: R/O; presentation with altered mental status, fever, and new seizures worrisome for meningitis (3) Hypokalemia Status: Acute (4) Hypernatremia Status: Acute (5) Encephalopathy Status: Resolved (6) Psychosis Status: Chronic (7) Elevated LFTs Status: Chronic (8) Bipolar affective disorder Status: Chronic (9) Hypothyroidism Status: Chronic Assessment & Plan: TSH 1.41 on 10/22/16 (10) GERD (gastroesophageal reflux disease) Status: Chronic (11) Stage III chronic kidney disease Status: Chronic (12) Nonalcoholic steatohepatitis Status: Chronic (13) Migraine Status: Chronic (14) GIOVANA (obstructive sleep apnea) Status: Chronic (15) Hypotension Status: Chronic (16) Morbid obesity Status: Chronic (17) Migraines Status: Chronic (18) Chronic pain syndrome Status: Chronic (19) Major depression Status: Chronic (20) Macrocytic anemia Status: Chronic Assessment & Plan: B12 988 09/21; iron 17, TIBC 124, saturation 14% on 10/22/16 Assessment Clinically Elina continues to improve and is at baseline based on my past experience with this patient. Evaluated by Dr. Mcclure earlier today who requested MRI due to focal seizures and felt infectious etiology less likely given nature of the seizure activity. Patient refuses lumbar puncture. Neither lactic acid or procalcitonin on admission. Will again discuss LP for biofire markers and cell count knowing that culture will no longer be meaningful with the patient and her mother tomorrow. Continue antibiotics for meningitis, completes 48 hours of Decadron today. No recurrent seizures, Trileptal initiated earlier today by Dr. Mcclure. Home medications being reintroduced as clinical status permits. Oral potassium supplement initiated in conjunction with continued hypotonic fluids with potassium. Continue current thyroid supplementation-TSH normal currently. Hemoglobin stable overnight. Diarrhea reported, GI panel obtained-no infectious pathogens identified including C. difficile. Plan/Intensity of Service Discussed with Dr. Mcclure, chest x-ray and MRI reviewed by myself. Laboratory data reviewed. Remains at high risk for complications. Code Status Do Not Resuscitate Hospital Course Summary Disclaimer The hospital course summary below is not to be considered part of the above Progress Note. Hospital Course Summary 10/20/16 Admit, inpatient status to CCU. Attending: Dr. Linder. Primary care physician: Dr. Underwood. CODE STATUS: DO NOT RESUSCITATE. 1. New onset seizure disorder - Ativan PRN. NPO status. Will discuss which sz medication to start with Dr. Linder - mult allergies. Consult Dr. Mcclure. Start dexamethasone 0.15 mg/kg Q6h x 2 days. 2. Rule out severe sepsis. SIRS criteria = fever, tachycardia, tachypnea with organ dysfunction of INTERNAL CONTROL CONSULTANT/sz activity and acute encephalopathy. Consider LP. Recent PowerPort insertion - cannot r/o bacteremia, BC drawn and pending. May need ANTONINA. Start Vancomycin; ampicillin (rxn = diarrhea); and ceftriaxone at meningitis dosing. 3. Hypokalemia - give IV K. Check mg and phos. 4. Hypernatremia - IVF. 5. Hypocalcemia - check ionized Ca level.de 6. Psychosis - psych consult after mental status improves. 10/21-Kailash Elina is more interactive today although remains below baseline. Will clarify when last epidural injection was with her mother-may require imaging of lumbar spine. Cultures pending. Continue current antibiotics and steroids for empiric meningitis coverage, will readdress possible lumbar puncture under fluoroscopy tomorrow recognizing that cultures are unlikely to be interpretable at that time. No recurrent seizures, Recurrent headaches/generalized pain, minimize narcotics due to seizure activity yesterday. Resume psychiatric medications. Persistent hypernatremia and hyperkalemia-IV fluids changed to half normal with potassium. Persistent hypocalcemia however corrects for degree of hypoalbuminemia-no further supplement indicated. Hemoglobin down with hydration, degree of anemia greater than in the past. B-12 known to be normal. Check iron studies despite macrocytosis. Reassess TSH, levothyroxine dose has varied in multiple admissions recently and TSH elevated in September. Remains at high risk for complications despite improvement seen overnight. 10/22 Clinically Elina continues to improve and is at baseline based on my past experience with this patient. Evaluated by Dr. Mcclure earlier today who requested MRI due to focal seizures and felt infectious etiology less likely given nature of the seizure activity. Patient refuses lumbar puncture. Neither lactic acid or procalcitonin on admission. Will again discuss LP for bio fire markers and cell count knowing that culture will no longer be meaningful with the patient and her mother tomorrow. Continue antibiotics for meningitis, complaints 48 hours of Decadron today. No recurrent seizures, Trileptal initiated earlier today by Dr. Mcclure. Home medications being reintroduced as clinical status permits. Oral potassium supplement initiated in conjunction with continued hypotonic fluids with potassium. Continue current thyroid supplementation-TSH normal currently. Hemoglobin stable overnight. Diarrhea reported, GI panel obtained-no infectious pathogens identified including C. difficile. JENNIFFER LINDER MD Oct 22, 2016 19:39
[2016-10-22] MEDS: HYDROCODONE/APAP 5 mg/325 mg TABLET PO PRN (20:29)
--- NOTE | 2016-10-22 20:40 | NUR ---
LOW URINE OUTPUT APPROX 20CC/HR, DR. CHINCHILLA AWARE, NO NEW ORDERS.
--- NOTE | 2016-10-22 21:45 | NUR ---
TRANSFER FROM CCU 3 TO MEDICAL 142 AT THIS TIME PER DO, PT STABLE, RECEIVED BY BRANDON COTTO.
--- NOTE | 2016-10-22 21:50 | NUR ---
ADMIT PT WAS ADMITTED [facility]. ACCOMPANIED BY CCU RN. PT ALERT AND ORIENTED TO PERSON AND PLACE. TRANSFERRED WITH A CCU BED. PT ORIENTED ABT THE ROOM AND BED BY STAFFS. WILL CONTINUE TO MONITOR.
[2016-10-23] VITALS (11 sets, daily range): BP systolic 103–127; BP diastolic 65–78; PULSE 82–102; RESP 14–18; TEMP 95.8–97.3; O2SAT 95–98
[2016-10-23] MEDS: VANCOMYCIN 1,250 MG in NORMAL SALINE 250 ML IV SCH ×2 (00:24→12:23)
[2016-10-23] MEDS: AMPICILLIN 2 G in NORMAL SALINE 100 ML IV SCH ×6 (02:02→20:10)
[2016-10-23] MEDS: HYDROCODONE/APAP 5 mg/325 mg TABLET PO PRN ×3 (03:05→18:07)
--- NOTE | 2016-10-23 03:10 | NUR ---
PRN PT WAS GIVEN PAIN MEDICATION PER HER REQUEST FOR 04/14 CHRONIC BACK AND NECK PAIN. PT WAS ASSISTED WITH REPOSITIONING. WILL CONTINUE TO MONITOR.
[2016-10-23 04:59] LABS: HGB - HEMOGLOBIN 9.9 GM/DL (12-16); MEAN CORPUSCULAR HGB 32.6 UUG (26-34); MEAN CORPUSCULAR HGB CONC(MCHC 30.9 GM/DL (31-37); MEAN CORPUSCULAR VOLUME 105.3 UM3 (80-100); MEAN PLATELET VOLUME 9.2 UM3 (9.4-12.4); RED BLOOD COUNT 3.04 M/MM3 (4.00-5.20); WBC - WHITE BLOOD COUNT 7.7 T/MM3 (4.5-11.0)
[2016-10-23 05:14] LABS: ALBUMIN 1.9 G/DL (3.5-5.0); ALBUMIN/GLOBULIN RATIO 0.7 RATIO (1.1-2.2); ALKALINE PHOSPHATASE 72 U/L (38-126); ALT (SGPT) 74 U/L (9-52); ANION GAP 7 MEQ/L (5-15); AST (SGOT) 82 U/L (14-36); BUN/CREATININE RATIO 20 RATIO (6-26); CALCIUM 7.4 MG/DL (8.4-10.2); CHLORIDE 117 MEQ/L (98-107); CO2 - CARBON DIOXIDE 23 MEQ/L (22-30); CREATININE 0.5 MG/DL (0.7-1.2); GLOMERULAR FILTRATION RATE 127; GLUCOSE 109 MG/DL (65-110); POTASSIUM 4.1 MEQ/L (3.6-5); SODIUM 147 MEQ/L (134-144); TOTAL PROTEIN 4.5 G/DL (6.3-8.2)
[2016-10-23] MEDS: LEVOTHYROXINE 150 MCG TABLET PO SCH (05:48)
[2016-10-23 06:26] LABS: BAND NEUTROPHILS # 0.1 T/MM3; LYMPHOCYTES # (MANUAL) 0.3 T/MM3 (1-4.8); MONOCYTES # (MANUAL) 0.1 T/MM3 (0-0.8); NEUTROPHILS #(MANUAL)-ABSOLUTE 7.2 T/MM3 (1.8-7.7); TOTAL CELLS COUNTED 100 %
[2016-10-23 06:27] LABS: ANISOCYTOSIS 1+
--- NOTE | 2016-10-23 06:28 | NUR ---
SUMMARY PT SLEEPING AT THE MOMENT. PT IS ALERT TO PERSON AND PLACE. WAS GIVEN PAIN MEDICATION ONCE SINCE ADMISSION LAST EVENING FOR BACK PAIN. PT REPOSITIONED BY STAFFS SIDE TO SIDE. ON CONTINUOUS IV FLUIDS THAT SHE TOLERATES WELL. EDUCATED ABOUT CALL LIGHT USE AND PAT SAFETY. KAHN INTACT AND DRAINING. PT HAS 1+ GENERALIZED EDEMA. BLE ELEVATED WITH PILLOW. SCD'S IN PLACE.
[2016-10-23] MEDS: OXCARBAZEPINE 300 MG TABLET PO SCH ×2 (08:23→20:09)
[2016-10-23] MEDS: BuPROPion XL (24 HR) 150 MG TABLET PO SCH (08:23)
[2016-10-23] MEDS: LORAZEPAM 0.5 MG TABLET PO SCH (08:24)
[2016-10-23] MEDS: QUETIAPINE 50 MG TABLET PO SCH (08:24)
[2016-10-23] MEDS: POTASSIUM CHLORIDE 20 MEQ TABLET PO SCH (08:24)
[2016-10-23] MEDS: FLUTICASONE NASAL SPRAY 50 MCG EA NOSTRIL SCH (08:26)
[2016-10-23] MEDS: NYSTATIN 500,000 units/5ml Susp UD PO SCH ×4 (08:37→20:09)
[2016-10-23] MEDS: CEFTRIAXONE 2 G in NORMAL SALINE 100 ML IV SCH ×2 (09:14→23:07)
[2016-10-23] MEDS: ALBUTEROL/IPRATROPIUM INHAL. 2.5mg-0.5mg/3ml Neb. AEROSOL SCH ×4 (10:48→19:21)
--- NOTE | 2016-10-23 11:00 | PNPDOC ---
ISABELLA ROSALES OIL WINTERIZER 10/23/16 1048: Subjective Date DATE: 10/23/16 TIME: 10:44 Subjective Elina was awake, breakfast was sitting in front of her but she said she didn't feel like eating. She's complaining of a headache, which is worse than it normally is. She also complains of back and leg pain. She asks if she can have another pain pill. She denies any shortness of breath. She denied any new abdominal pain, and grimaced when I palpated her abdomen. She's been oriented to person and place. Objective Vital Signs Vital signs Vital Signs Date Time Temp Pulse Resp B/P Pulse Ox O2 Delivery O2 Flow Rate FiO2 10/23/16 08:00 88 16 10/23/16 07:28 95.8 124/76 97 Nasal Cannula 2.00 Height (Feet): 5 Height (Inches): 2.00 Weight (Kilograms): 86.300 General General Appearance: Alert, Obese, Well Nourished, Well Developed, No Acute Distress Eyes (Brief) Eyes: FOUND: PERRL, NOT FOUND: scleral icterus ENMT (Brief) ENMT: FOUND: mucosa moist, other (no obvious thrush lesions noted on tongue today), NOT FOUND: pharnyx erythema Respiratory (Brief) Respiratory: FOUND: clear all rodrigues, equal bilaterally Comments decreased anterior lung rodrigues Cardiovascular (Brief) Cardiac: FOUND: regular rate, regular rhythm Abdomen (Brief) Abdominal: FOUND: BS normo active x4, soft, tender (diffusely), NOT FOUND: distended Extremities (Brief) Extremity : Side: Bilateral Extremity: leg Extremity Finding: FOUND: edema (trace) Musculoskeletal (Brief) Musculoskeletal: FOUND: loss of motion (ROM to neck improving) Integumentary (Brief) Integumentary: FOUND: dry, warm Psychiatric (Brief) Psychiatric: FOUND: alert, attentive, oriented, NOT FOUND: normal affect (flat ; delayed speech) Laboratory Laboratory Laboratory Tests 10/22/16 03:11 10/22/16 08:22 10/23/16 04:17 Laboratory Tests 10/22/16 03:11 10/23/16 04:16 Microbiology Microbiology Microbiology Date/Time Source Procedure Growth Status 10/20/16 14:36 Peripheral/Iv Start Blood Culture - Preliminary NO GROWTH AFTER 48 HOURS Resulted 10/20/16 13:17 Peripheral/Iv Start Blood Culture - Preliminary NO GROWTH AFTER 48 HOURS Resulted Sepsis Diagnostic Criteria Sepsis SIRS Criteria: Acute mental status chg (seizure), Temp<=96.8 or >=100.4, Pulse >= 90 beats/min, RR > or = to 20 Severe Sepsis SpO2 <90% or ventilated (seizure) Assessment & Plan Problems: (1) Seizure Status: Acute Assessment & Plan: Left focal motor (2) Severe sepsis Status: Acute Assessment & Plan: R/O; presentation with altered mental status, fever, and new seizures worrisome for meningitis (3) Hypernatremia Status: Acute (4) Hypokalemia Status: Resolved (5) Encephalopathy Status: Resolved (6) Psychosis Status: Chronic (7) Elevated LFTs Status: Chronic (8) Bipolar affective disorder Status: Chronic (9) Hypothyroidism Status: Chronic Assessment & Plan: TSH 1.41 on 10/22/16 (10) GERD (gastroesophageal reflux disease) Status: Chronic (11) Stage III chronic kidney disease Status: Chronic (12) Nonalcoholic steatohepatitis Status: Chronic (13) Migraine Status: Chronic (14) GIOVANA (obstructive sleep apnea) Status: Chronic (15) Hypotension Status: Chronic (16) Morbid obesity Status: Chronic (17) Migraines Status: Chronic (18) Chronic pain syndrome Status: Chronic (19) Major depression Status: Chronic (20) Macrocytic anemia Status: Chronic Assessment & Plan: B12 988 09/21; iron 17, TIBC 124, saturation 14% on 10/22/16 Plan/Intensity of Service Flat affect; but certainly improved and clearing cognitively. Continue meningitis dosing of ampicillin and Rocephin, plus vancomycin. Focal sz - MRI was done yesterday but severely limited interpretation d/t motion artifact. Hypernatremia persists at 147. Will reduce rate of 1/2 NS to 50 ml/hr. Weight is increasing, but urine output has been borderline low and oral intake minimal. Burroughs in place. No reports of sz - cont. Trileptal per Dr. Mcclure. Will discuss with Dr. Linder. DVT Prophylaxis: SCD'S Code Status Do Not Resuscitate Hospital Course Summary Disclaimer The hospital course summary below is not to be considered part of the above Progress Note. Hospital Course Summary 10/20/16 Admit, inpatient status to CCU. Attending: Dr. Linder. Primary care physician: Dr. Underwood. CODE STATUS: DO NOT RESUSCITATE. 1. New onset seizure disorder - Ativan PRN. NPO status. Will discuss which sz medication to start with Dr. Linder - mult allergies. Consult Dr. Mcclure. Start dexamethasone 0.15 mg/kg Q6h x 2 days. 2. Rule out severe sepsis. SIRS criteria = fever, tachycardia, tachypnea with organ dysfunction of AG SERVICE MANAGER/sz activity and acute encephalopathy. Consider LP. Recent PowerPort insertion - cannot r/o bacteremia, BC drawn and pending. May need ANTONINA. Start Vancomycin; ampicillin (rxn = diarrhea); and ceftriaxone at meningitis dosing. 3. Hypokalemia - give IV K. Check mg and phos. 4. Hypernatremia - IVF. 5. Hypocalcemia - check ionized Ca level.de 6. Psychosis - psych consult after mental status improves. 10/21-Kailash Elina is more interactive today although remains below baseline. Will clarify when last epidural injection was with her mother-may require imaging of lumbar spine. Cultures pending. Continue current antibiotics and steroids for empiric meningitis coverage, will readdress possible lumbar puncture under fluoroscopy tomorrow recognizing that cultures are unlikely to be interpretable at that time. No recurrent seizures, Recurrent headaches/generalized pain, minimize narcotics due to seizure activity yesterday. Resume psychiatric medications. Persistent hypernatremia and hyperkalemia-IV fluids changed to half normal with potassium. Persistent hypocalcemia however corrects for degree of hypoalbuminemia-no further supplement indicated. Hemoglobin down with hydration, degree of anemia greater than in the past. B-12 known to be normal. Check iron studies despite macrocytosis. Reassess TSH, levothyroxine dose has varied in multiple admissions recently and TSH elevated in September. Remains at high risk for complications despite improvement seen overnight. 10/22 Clinically Elina continues to improve and is at baseline based on my past experience with this patient. Evaluated by Dr. Mcclure earlier today who requested MRI due to focal seizures and felt infectious etiology less likely given nature of the seizure activity. Patient refuses lumbar puncture. Neither lactic acid or procalcitonin on admission. Will again discuss LP for bio fire markers and cell count knowing that culture will no longer be meaningful with the patient and her mother tomorrow. Continue antibiotics for meningitis, complaints 48 hours of Decadron today. No recurrent seizures, Trileptal initiated earlier today by Dr. Mcclure. Home medications being reintroduced as clinical status permits. Oral potassium supplement initiated in conjunction with continued hypotonic fluids with potassium. Continue current thyroid supplementation-TSH normal currently. Hemoglobin stable overnight. Diarrhea reported, GI panel obtained-no infectious pathogens identified including C. difficile. 10/23/16 Flat affect; but certainly improved and clearing cognitively. Continue meningitis dosing of ampicillin and Rocephin, plus vancomycin. Focal sz - MRI was done yesterday but severely limited interpretation d/t motion artifact. Hypernatremia persists at 147. Will reduce rate of 1/2 NS to 50 ml/hr. Weight is increasing, but urine output has been borderline low and oral intake minimal. Burroughs in place. No reports of sz - cont. Trileptal per Dr. Mcclure. JENNIFFER LINDER MD 10/23/16 2119: Assessment & Plan Assessment I have independently evaluated and examined this patient. I reviewed the chart, the patient's history, and the OIL WINTERIZER's documented findings as above. We discussed and formulated the assessment and plan as above with additions as below: Poor oral intake, ate little at lunch. Reports she is just not very hungry. Concern she's not getting many of her usual medications but can't identify anything in particular. Did not complain of diarrhea today. Slow verbal responses, using both upper extremities symmetrically. Decreased inspiratory effort and breath sounds but anterior lung rodrigues clear. Again discussed lumbar puncture with patient's mother and the patient, no change in plans. Continue current antibiotics given clinical improvement. Discussed with Dr. Mcclure, no further seizure activity reported. Continue Trileptal. Tolerating oral medications, will begin resuming some of home prn meds. Reassess intake with reduced IV fluids but given poor urine output I suspect higher volume will be needed. In addition to above diagnoses please add: #1 oral thrush Plan/Intensity of Service Discussed with Dr. Mcclure, patient's mother/DPOA, and nursing. Laboratory data reviewed, home medications reviewed. ISABELLA ROSALES OIL WINTERIZER Oct 23, 2016 10:48 JENNIFFER LINDER MD Oct 23, 2016 16:29
--- NOTE | 2016-10-23 11:06 | PNF ---
DATE 10/23/2016 REFERRING PHYSICIAN Traci Linder MD PATIENT'S CHIEF COMPLAINT Seizure. HISTORY OF PRESENT ILLNESS Patient is doing better today. She is more alert and oriented. She is able to say a few words and follow commands with some hesitation. She had no new seizure since admission. Her UTI and sepsis are being controlled with medication. Patient was able to eat some soft mechanical food earlier today. She had an MRI of the brain yesterday that showed no focal brain injury and no acute changes. ASSESSMENT AND PLAN 1. Complex partial seizure controlled with Trileptal. The patient's seizure can be induced by recent infection and metabolic abnormalities. 2. Metabolic encephalopathy associated with sepsis and UTI and this is improving with medication and fluid. PLAN 1. Continue current medication. MTDD
--- NOTE | 2016-10-23 12:28 | NUR ---
PRN PATIENT WAS GIVEN PRN PAIN MEDICATIONS PER PT REQUEST. RATED PAIN A 9/10, AND WILL BE REASSESSED.
--- NOTE | 2016-10-23 13:45 | STDAILYN ---
ST Daily Note Date/Time DATE: 10/23/16 TIME: 13:40 Subjective Comment Pt was alert and cooperative. Mom was at bedside from part of session. No complaint of pain or fatigue but she "did not like brown gravy". PACKAGING SPECIALIST amended her diet order to "no brown gravy". Orientations: Person, Alert, Cooperative Chief Complaint: dysphagia Pain: No Was Patient Education Provided: Yes Education Subject: Diet, Swallowing Strategies Instruction Understanding Demo: Pt. demos understanding *Speech Therapy Impressions Pt was positioned upright in bed. She fed herself pureed diet with nectar thick liquids using a straw. Swallow was prompt with no s/s of aspiration. Voicing was soft but dry after swallows. She used small bites and slow rate independently. Pt is a baseline for feeding. ST Treatment Plan: N/A ST Treatment Plan Frequency: N/A Treatment Plan Duration: discontinue therapy Plan of Care Comment: Pt tolerated pureed diet and nectar thick liquids well. Functioning at baseline for feeding. DC skilled speech therapy. Start Treatment 1: 13:05 Stop Treatment 1: 13:20 Treatment Duration : ST Treatment Charge: Swallow Treatment Minutes of Individual Therapy: 15 JULIA MYAS MS CCC-PACKAGING SPECIALIST Oct 23, 2016 13:43
--- NOTE | 2016-10-23 13:46 | STDAILYN ---
Discharge Note Date/Time DATE: 10/23/16 TIME: 13:45 Discharge From: Inpatient ST Other Reasons for Discharge: swallow plan in place Barriers to Achieving Outcomes: Co-morbidities Discharge Summary: Pt took pureed diet with nectar thick liquids well. Swallow plan in place. Recommended Follow-up: Contact Dept. prn/as JULIA Belle MS CCC-DIRECTOR EHS Oct 23, 2016 13:45
[2016-10-23] MEDS: POTASSIUM CHLORIDE 40 MEQ in 1/2 NS 1,000 ML IV SCH (13:50)
[2016-10-23] MEDS: MORPHINE SULFATE 2 MG SYRINGE IV PRN (13:56)
--- NOTE | 2016-10-23 15:36 | NUR ---
CM THIS WORKER MET WITH PT ON THIS DATE. ALSO PRESENT WAS DPOA/MOTHER, RENATO. PT WAS SITTING UP IN BED WITH HER LUNCH ON TABLE. THIS WORKER REVIEWED DISCHARGE PLAN WITH BOTH PT AND MOTHER. PLAN AT THIS TIME IS FOR PT TO RETURN TO [facility]. THIS WORKER PROVIDED UPDATE TO [facility] AT [facility] DATE. CASE MANAGEMENT FOLLOWING AND WILL ASSIST IN DISCHARGE PLANNING.
[2016-10-23] MEDS ORDERED: BENZONATATE 100 MG CAPSULE PO PRN (16:30)
[2016-10-23] MEDS ORDERED: METOCLOPRAMIDE 5mg TABLET PO PRN (16:30)
--- NOTE | 2016-10-23 17:07 | NUR ---
SHIFT PT HAS BEEN PLEASANT ALL SHIFT WITH A FLAT AFFECT. PT HAS DELAYED RESPONSES. PT IS A&OX2-3 AT TIMES, PT DENIES SOA AND N/V. PT DOES REPORT PAIN, PRN PAIN MEDS GIVEN WHEN AVAILABLE. PT HAS BEEN TURNED Q2H AND HAS KAHN TO DD. NO BM THIS SHIFT. PT EATS VERY SLOWLY AND TAKES BITES ONLY. MOTHER HAS BEEN AT BEDSIDE SOME THIS SHIFT WELL. NO DRESSINGS BUT THERE IS AN I/O SITE THAT WAS DC'D. NO OTHER CHANGES SINCE PREVIOUS SHIFT. ALARMS IN USE AND CALL LIGHT WITH IN REACH.
[2016-10-23] MEDS: LORAZEPAM 0.5 MG TABLET PO PRN (20:09)
[2016-10-24] VITALS (12 sets, daily range): BP systolic 113–135; BP diastolic 76–87; PULSE 92–104; RESP 16–20; TEMP 96.1–98.2; O2SAT 96–99
[2016-10-24] MEDS: QUETIAPINE 50 MG TABLET PO PRN (00:10)
[2016-10-24] MEDS: VANCOMYCIN 1,250 MG in NORMAL SALINE 250 ML IV SCH (00:11)
--- NOTE | 2016-10-24 00:41 | NUR ---
PRN PT WAS GIVEN SEROQUEL PRN FOR INSOMNIA AND AGITATION. SHE KEEP COMPLAINING TO THE NURSE THAT SHE IS NOT GETTING HER MEDS LIKE SHE GETS AT HOME AND THAT'S WHY SHE CAN'T SLEEP. THIS NURSE READ ALL HER MEDS AND THE SCHEDULED TIMES. SHE REQUESTED TO GET THE PRN SEROQUEL. EARLIER SHE WAS GIVEN ORAL ATIVAN FOR ANXIETY. WILL KEEP MONITORING.
[2016-10-24] MEDS: AMPICILLIN 2 G in NORMAL SALINE 100 ML IV SCH ×6 (01:43→21:31)
[2016-10-24 05:20] LABS: HCT - HEMATOCRIT 30.8 % (36-46); HGB - HEMOGLOBIN 9.3 GM/DL (12-16); IMMATURE GRANULOCYTE # (AUTO) 0.02 T/MM3 (0.00-0.03); IMMATURE GRANULOCYTE % (AUTO) 0.4 % (0.0-0.5); LYMPHOCYTES # (AUTO) 1.7 T/MM3 (1-4.8); LYMPHOCYTES % (AUTO) 30.2 % (23-45); MEAN CORPUSCULAR HGB CONC(MCHC 30.2 GM/DL (31-37); MEAN CORPUSCULAR VOLUME 105.8 UM3 (80-100); MEAN PLATELET VOLUME 9.5 UM3 (9.4-12.4); MONOCYTES # (AUTO) 0.3 T/MM3 (0-0.8); MONOCYTES % (AUTO) 5.5 % (0-9.0); NEUTROPHILS #(AUTO)-ABSOLUTE 3.6 T/MM3 (1.8-7.7); NEUTROPHILS % (AUTO) 63.9 % (33-66); RED BLOOD COUNT 2.91 M/MM3 (4.00-5.20); WBC - WHITE BLOOD COUNT 5.6 T/MM3 (4.5-11.0)
[2016-10-24 05:34] LABS: ANION GAP 6 MEQ/L (5-15); BUN/CREATININE RATIO 15 RATIO (6-26); CALCIUM 7.5 MG/DL (8.4-10.2); CHLORIDE 119 MEQ/L (98-107); CO2 - CARBON DIOXIDE 24 MEQ/L (22-30); CREATININE 0.6 MG/DL (0.7-1.2); GLOMERULAR FILTRATION RATE 103; GLUCOSE 63 MG/DL (65-110); POTASSIUM 3.8 MEQ/L (3.6-5); SODIUM 149 MEQ/L (134-144)
[2016-10-24] MEDS: LEVOTHYROXINE 150 MCG TABLET PO SCH (05:45)
--- NOTE | 2016-10-24 06:32 | NUR ---
SUMMARY. PT SLEEPING AT THE MOMENT. SLEPT AFTER MIDNIGHT. PT HAS BEEN COMPLAINING ABT HER MED TIME CHANGE. EDUCATED WHY THE MEDS ARE SCHEDULED. PT ALSO COMPLAINING THAT SHE IS GETTING A LOT OF ANTIBIOTICS. PT EDUCATED ABT THE NEED FOR ANTIBIOTICS. NOT INTERESTED IN THAT. WAS GIVEN SEROQUEL FOR INSOMNIA AND SLEPT WELL AFTER THAT. ENCOURAGED TO DRINK MORE FLUIDS. SHE VOICED THAT SHE DOESN'T LIKE THE THICK LIQUIDS AND SHE DON'T UNDERSTAND WHY SHE IS TAKING IT. PT EDUCATED ABT THE DIET AND THICK LIQUIDS.
--- NOTE | 2016-10-24 07:30 | NUR ---
Hypoglycemia Pt eats chocolate pudding after low BGM early this am. BGM rechecked at this time-79.
[2016-10-24] MEDS: ALBUTEROL/IPRATROPIUM INHAL. 2.5mg-0.5mg/3ml Neb. AEROSOL SCH ×4 (08:06→19:52)
[2016-10-24] MEDS: QUETIAPINE 50 MG TABLET PO SCH (08:19)
[2016-10-24] MEDS: LORAZEPAM 0.5 MG TABLET PO SCH (08:19)
[2016-10-24] MEDS: POTASSIUM CHLORIDE 20 MEQ TABLET PO SCH (08:19)
[2016-10-24] MEDS: BuPROPion XL (24 HR) 150 MG TABLET PO SCH (08:20)
[2016-10-24] MEDS: OXCARBAZEPINE 300 MG TABLET PO SCH ×2 (08:20→21:25)
[2016-10-24] MEDS: FLUTICASONE NASAL SPRAY 50 MCG EA NOSTRIL SCH (08:21)
[2016-10-24] MEDS: HYDROCODONE/APAP 5 mg/325 mg TABLET PO PRN ×3 (08:22→20:20)
--- NOTE | 2016-10-24 08:25 | NUR ---
Pain/Status Pt alert and oriented to name, place, and "October" this am. Pt does speak of "hearing voices." Pt gives names of the voices she is hearing. Pt also states she is not getting all her medications as she usually takes them. Attempt made by this RN to go over medications that are ordered and being given to the pt. Pt continues to seem dissatisfied with meds but unable to give specific complaints. List of "Reconciled Meds" checked and most of meds except vitamins have been restarted. Will continue to evaluate pt's comments about meds. Vitals stable as charted with o2 sat 99% room air. Pt weaned to room air yesterday per report. Pt reports pain to head, arms, and legs rated 9/10. [place] 5 i tab PO given for this c/o. Pt assisted with eating breakfast. Eats 50%. Discussed with pt the possibility of getting into the chair later today and pt states she will try. Will continue to monitor.
[2016-10-24] MEDS: CEFTRIAXONE 2 G in NORMAL SALINE 100 ML IV SCH ×2 (09:14→21:25)
[2016-10-24] MEDS: NYSTATIN 500,000 units/5ml Susp UD PO SCH ×4 (09:14→21:25)
[2016-10-24] MEDS: MORPHINE SULFATE 2 MG SYRINGE IV PRN ×2 (09:29→17:27)
--- NOTE | 2016-10-24 09:31 | NUR ---
Pain Pt continues to rate generalized pain 9/10 after norco given. Morphine 2 mg IV given for pain. Will monitor.
--- NOTE | 2016-10-24 11:30 | NUR ---
STATUS PT RESTS QUIETLY BETWEEN CARES. ORDER OBTAINED FOR PT TO WORK WITH THERAPY. WILL MONITOR.
[2016-10-24] MEDS ORDERED: SUMATRIPTAN 100 MG TABLET PO PRN (13:30)
--- NOTE | 2016-10-24 13:30 | PNF ---
DATE 10/24/[address] Linder The patient's chief complaint is seizure, alteration of awareness and fatigue. HISTORY OF PRESENT ILLNESS The patient had no new witnessed seizure activity and no convulsive events. She continues to complain of severe pain affecting her arms and legs and lower back. She also complained of being tired and fatigued all over. Her motor strength has been affected by pain and give-away weakness. She is moving all extremities symmetrically. The patient was having some delusional thoughts as per nurse earlier today. She has been otherwise stable without any agitation. Her UTI is being treated with antibiotic and is doing well. ASSESSMENT 1. Complex partial seizure treated with Trileptal. No evidence of new seizure since admission. 2. Metabolic encephalopathy associated with UTI. This has been controlled with medication. 3. Mood disorder of undetermined etiology. This has been associated with some psychotic thought recently. PLAN 1. Continue Trileptal for seizure prevention and mood disorder. 2. Continue treatment for UTI and sepsis. 3. Consider psych evaluation if patient continues to have a problem with mood including hallucinations and delusions. Thank you. FRANSISCO
--- NOTE | 2016-10-24 13:30 | NUR ---
ACTIVITY PT TO CHAIR WITH ASSIST X2 AND USE OF GAIT BELT AND WALKER. PT SITS WITH LEGS ELEVATED WATCHING TV. WILL CONTINUE TO MONITOR.
--- NOTE | 2016-10-24 13:48 | NUR ---
VANCOMYCIN CONSULT (DAY 5) S: 56 y/o F admitted with seizures. Started on vancomycin, ampicillin, and ceftriaxone empirically for possible meningitis. Pharmacy consulted to manage vancomycin therapy. O: Ht=60, Wt=90 kg, adjusted BW~63 kg SCr=0.6 mg/dL; estimated CrCl~95 mL/min WBC=5.6 T/mm3 24-h Tmax=97.3F Blood cultures, 2 of 2: no growth to date (72 hours) Vancomycin trough concentration~33 mcg/mL A/P: Day 5 vancomycin, ampicillin, and ceftriaxone empirically for meningitis. Goal vancomycin trough concentration 15-20 mcg/mL. Supratherapeutic trough concentration on vancomycin 1.25 g IV q12h. Will reduce dose to 1.75 g IV q24h starting tomorrow morning. Will continue to follow renal function, clinical status, and cultures. Thank you for the consult. Gifty Kumari, PharmD, BCPS
[2016-10-24] MEDS: POTASSIUM CHLORIDE 40 MEQ in 1/2 NS 1,000 ML IV SCH (15:39)
[2016-10-24] MEDS ORDERED: FUROSEMIDE 20 MG/2 ML INJECTION IV ONE (17:15)
--- NOTE | 2016-10-24 17:28 | PNPDOC ---
Subjective Date DATE: 10/24/16 TIME: 17:04 Subjective Elina complained of diffuse pain and inability to sleep when seen. She denied dyspnea and reports that she hasn't walked for a number of months. She denied diarrhea today but complained of nausea without vomiting. She is focused on medication she isn't getting indicating that she usually takes "18 pills at a time"and that should be taking amitriptyline which chart review indicates was discontinued sometime between late August and early September. Objective Vital Signs Vital signs Vital Signs Date Time Temp Pulse Resp B/P Pulse Ox O2 Delivery O2 Flow Rate FiO2 10/24/16 16:23 89 10/24/16 16:14 14 97 10/24/16 15:27 96.5 133/87 Room Air 10/23/16 16:18 1.00 I/O 2805/385 weight up 5 kg over the past 2 days EXAM General-NAD, alert, much more talkative today than prior days HEENT-conjunctiva clear, conjugate gaze, oropharynx clear Lungs-decreased inspiratory effort and diminished breath sounds but clear, inspiration triggers cough Cardiac-regular rhythm, S1-S2 Abd-soft, moderately distended, mild generalized tenderness Ext-trace edema upper extremities bilaterally, no lower extremity edema; multiple bruises on forearms Neuro-minimal movement in her lower extremities to command Psych-flat affect, irritable Height (Feet): 5 Height (Inches): 2.00 Weight (Kilograms): 90.200 Laboratory Laboratory Laboratory Tests 10/23/16 04:17 10/24/16 03:38 Laboratory Tests 10/23/16 04:16 10/24/16 03:38 Accu-Cheks [id number] thus far today Vancomycin trough 32.99 Microbiology Microbiology Blood cultures 2 negative after 4 days Sepsis Diagnostic Criteria Sepsis SIRS Criteria: Acute mental status chg (seizure), Temp<=96.8 or >=100.4, Pulse >= 90 beats/min, RR > or = to 20 Severe Sepsis SpO2 <90% or ventilated (seizure) Assessment & Plan Problems: (1) Seizure Status: Acute Assessment & Plan: Left focal motor (2) Severe sepsis Status: Acute Assessment & Plan: R/O; presentation with altered mental status, fever, and new seizures worrisome for meningitis (3) Hypernatremia Status: Acute (4) Hypokalemia Status: Resolved (5) Encephalopathy Status: Resolved (6) Psychosis Status: Chronic (7) Elevated LFTs Status: Chronic (8) Bipolar affective disorder Status: Chronic (9) Hypothyroidism Status: Chronic Assessment & Plan: TSH 1.41 on 10/22/16 (10) GERD (gastroesophageal reflux disease) Status: Chronic (11) Stage III chronic kidney disease Status: Chronic (12) Nonalcoholic steatohepatitis Status: Chronic (13) Migraine Status: Chronic (14) GIOVANA (obstructive sleep apnea) Status: Chronic (15) Hypotension Status: Chronic (16) Morbid obesity Status: Chronic (17) Migraines Status: Chronic (18) Chronic pain syndrome Status: Chronic (19) Major depression Status: Chronic (20) Macrocytic anemia Status: Chronic Assessment & Plan: B12 988 09/21; iron 17, TIBC 124, saturation 14% on 10/22/16 (21) Thrush, oral Status: Acute (22) Insomnia Status: Chronic Qualifiers: Insomnia type: due to other mental disorder Qualified Codes: F51.05 - Insomnia due to other mental disorder; F99 - Mental disorder, not otherwise specified (23) Dysphagia Assessment Clinically stable. Continue antibiotics empirically for possible meningitis x 10 day course-day 5 today . Vancomycin decreased from twice daily to once daily in response to elevated level. No recurrent seizures, continue Trileptal. Discussed with Dr. Mcclure. Patient irritable but much more alert than on admission or prior to admission by her mother's report. Have contacted Dr. Underwood to discuss recent medication changes. Psychiatry consulted to assist with depression/irritability/insomnia. Discussed with Dr. Almanzar. Poor urine output in conjunction with persistent hypernatremia and increased weight which is well above weight prior to admission (82.7 kg at discharge in September). Low-dose Lasix given 1, continue to follow electrolytes. Antibiotics all administered with normal saline, may require D5W infusion to counter balance. Other fluids discontinued. Pured diet, nectar thickened liquids. Plan/Intensity of Service Discussed with Dr. Mcclure, Dr. Almanzar, and nursing. Laboratory data reviewed, home medications reviewed, old records reviewed. DVT Prophylaxis: SCD'S Code Status Do Not Resuscitate Hospital Course Summary Disclaimer The hospital course summary below is not to be considered part of the above Progress Note. Hospital Course Summary 10/20/16 Admit, inpatient status to CCU. Attending: Dr. Linder. Primary care physician: Dr. Underwood. CODE STATUS: DO NOT RESUSCITATE. 1. New onset seizure disorder - Ativan PRN. NPO status. Will discuss which sz medication to start with Dr. Linder - mult allergies. Consult Dr. Mcclure. Start dexamethasone 0.15 mg/kg Q6h x 2 days. 2. Rule out severe sepsis. 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 Consider LP. Recent PowerPort insertion - cannot r/o bacteremia, BC drawn and pending. May need ANTONINA. Start Vancomycin; ampicillin (rxn = diarrhea); and ceftriaxone at meningitis dosing. 3. Hypokalemia - give IV K. Check mg and phos. 4. Hypernatremia - IVF. 5. Hypocalcemia - check ionized Ca level.de 6. Psychosis - psych consult after mental status improves. 10/21-Kailash Elina is more interactive today although remains below baseline. Will clarify when last epidural injection was with her mother-may require imaging of lumbar spine. Cultures pending. Continue current antibiotics and steroids for empiric meningitis coverage, will readdress possible lumbar puncture under fluoroscopy tomorrow recognizing that cultures are unlikely to be interpretable at that time. No recurrent seizures, Recurrent headaches/generalized pain, minimize narcotics due to seizure activity yesterday. Resume psychiatric medications. Persistent hypernatremia and hyperkalemia-IV fluids changed to half normal with potassium. Persistent hypocalcemia however corrects for degree of hypoalbuminemia-no further supplement indicated. Hemoglobin down with hydration, degree of anemia greater than in the past. B-12 known to be normal. Check iron studies despite macrocytosis. Reassess TSH, levothyroxine dose has varied in multiple admissions recently and TSH elevated in September. Remains at high risk for complications despite improvement seen overnight. 10/22 Clinically Elina continues to improve and is at baseline based on my past experience with this patient. Evaluated by Dr. Mcclure earlier today who requested MRI due to focal seizures and felt infectious etiology less likely given nature of the seizure activity. Patient refuses lumbar puncture. Neither lactic acid or procalcitonin on admission. Will again discuss LP for bio fire markers and cell count knowing that culture will no longer be meaningful with the patient and her mother tomorrow. Continue antibiotics for meningitis, complaints 48 hours of Decadron today. No recurrent seizures, Trileptal initiated earlier today by Dr. Mcclure. Home medications being reintroduced as clinical status permits. Oral potassium supplement initiated in conjunction with continued hypotonic fluids with potassium. Continue current thyroid supplementation-TSH normal currently. Hemoglobin stable overnight. Diarrhea reported, GI panel obtained-no infectious pathogens identified including C. difficile. 10/23/16 Flat affect; but certainly improved and clearing cognitively. Continue meningitis dosing of ampicillin and Rocephin, plus vancomycin. Focal sz - MRI was done yesterday but severely limited interpretation d/t motion artifact. Hypernatremia persists at 147. Will reduce rate of 1/2 NS to 50 ml/hr. Weight is increasing, but urine output has been borderline low and oral intake minimal. Burroughs in place. No reports of sz - cont. Trileptal per Dr. Mcclure. 10/24 Clinically stable. Continue antibiotics empirically for possible meningitis x 10 day course-day 5 today . Vancomycin decreased from twice daily to once daily in response to elevated level. No recurrent seizures, continue Trileptal. Discussed with Dr. Mcclure. Patient irritable but much more alert than on admission or prior to admission by her mother's report. Have contacted Dr. Underwood to discuss recent medication changes. Psychiatry consulted to assist with depression/irritability/insomnia. Discussed with Dr. Almanzar. Poor urine output in conjunction with persistent hypernatremia and increased weight which is well above weight prior to admission (82.7 kg at discharge in September). Low-dose Lasix given 1, continue to follow electrolytes. Antibiotics all administered with normal saline, may require D5W infusion to counter balance. Other fluids discontinued. JENNIFFER LINDER MD Oct 24, 2016 17:08
--- NOTE | 2016-10-24 17:39 | NUR ---
STATUS PT RESTING BACK IN BED. BGM RECHECKED-67. PT ASSISTED WITH SNACK OF GRAPE JUICE AND STRAWBERRY MILK. PT C/O'S PAIN TO LEGS, KNEES, AND FEET RATED 9/10. MORPHINE 2 MG IV GIVEN. PT STATES HER PAIN HAS BEEN MOSTLY CONTROLLED TODAY BUT NOT COMPLETELY WHEN ASKED HOWEVER PT RATES PAIN HIGH WHEN ASKED FOR A NUMBER. PT REPOSITIONED FOR COMFORT. WILL CONTINUE TO MONITOR.
--- NOTE | 2016-10-24 18:18 | NUR ---
STATUS PT RESTING QUIETLY AFTER EATING 50% OF SUPPER WITH ASSIST. BGM NOW 84. PT POSITIONED WITH HEELS OFF OF BED. WILL CONTINUE TO MONITOR.
[2016-10-24] MEDS: LORAZEPAM 0.5 MG TABLET PO PRN (21:29)
[2016-10-25] VITALS (9 sets, daily range): BP systolic 123–139; BP diastolic 75–87; PULSE 93–108; RESP 14–18; TEMP 96.1–98.1; O2SAT 95–99
[2016-10-25] MEDS: AMPICILLIN 2 G in NORMAL SALINE 100 ML IV SCH ×6 (01:55→21:04)
[2016-10-25 05:26] LABS: ALBUMIN 1.9 G/DL (3.5-5.0); ALBUMIN/GLOBULIN RATIO 0.8 RATIO (1.1-2.2); ALKALINE PHOSPHATASE 76 U/L (38-126); ALT (SGPT) 101 U/L (9-52); ANION GAP 3 MEQ/L (5-15); AST (SGOT) 97 U/L (14-36); BUN/CREATININE RATIO 8 RATIO (6-26); CALCIUM 7.5 MG/DL (8.4-10.2); CHLORIDE 114 MEQ/L (98-107); CO2 - CARBON DIOXIDE 27 MEQ/L (22-30); CREATININE 0.6 MG/DL (0.7-1.2); GLOMERULAR FILTRATION RATE 103; GLUCOSE 57 MG/DL (65-110); POTASSIUM 3.6 MEQ/L (3.6-5); SODIUM 144 MEQ/L (134-144); TOTAL PROTEIN 4.3 G/DL (6.3-8.2)
--- NOTE | 2016-10-25 05:30 | NUR ---
END OF SHIFT SUMMARY: PRN NORCO and ATIVAN PO given last evenibng for pain and anxiety. Blood sugars running low this evening (67). Did not like the thickened grape juice given her; ate small cup of ice cream. Blood sugar then increased to 84. Sleeps at intervals through out the night. PORTACATH used for IV antibiotics. Burroughs cath to dependant drainage bag, good output; Urine is clear, straw color. Alert and orientated.
[2016-10-25] MEDS: VANCOMYCIN 1.75 G in NORMAL SALINE 500 ML IV SCH (06:05)
[2016-10-25] MEDS: LEVOTHYROXINE 150 MCG TABLET PO SCH (06:30)
[2016-10-25] MEDS: ALBUTEROL/IPRATROPIUM INHAL. 2.5mg-0.5mg/3ml Neb. AEROSOL SCH ×4 (07:30→20:18)
--- NOTE | 2016-10-25 08:00 | NUR ---
Received report Patient is resting in bed in no apparent distress. Remains on RA. VSS. Indwelling Burroughs catheter to DD bag. PAC intact to Rt. chest. Continues puree diet with nectar thick liquids. Remains on seizure precaution while in bed.
[2016-10-25] MEDS: QUETIAPINE 50 MG TABLET PO SCH (08:40)
[2016-10-25] MEDS: POTASSIUM CHLORIDE 20 MEQ TABLET PO SCH (08:40)
[2016-10-25] MEDS: OXCARBAZEPINE 300 MG TABLET PO SCH ×2 (08:40→20:03)
[2016-10-25] MEDS: BuPROPion XL (24 HR) 150 MG TABLET PO SCH (08:40)
[2016-10-25] MEDS: LORAZEPAM 0.5 MG TABLET PO SCH (08:40)
[2016-10-25] MEDS: NYSTATIN 500,000 units/5ml Susp UD PO SCH ×4 (08:42→20:02)
[2016-10-25] MEDS: HYDROCODONE/APAP 5 mg/325 mg TABLET PO PRN ×2 (08:42→15:56)
[2016-10-25] MEDS: QUETIAPINE 50 MG TABLET PO PRN (08:42)
[2016-10-25] MEDS: FLUTICASONE NASAL SPRAY 50 MCG EA NOSTRIL SCH (08:43)
[2016-10-25] MEDS: CEFTRIAXONE 2 G in NORMAL SALINE 100 ML IV SCH ×2 (10:16→21:53)
--- NOTE | 2016-10-25 10:49 | PNPDOC ---
LILIYA MARTIN V POWER TECHNICIAN 10/25/16 1045: Subjective Date DATE: 10/25/16 TIME: 10:25 Subjective Elina is seen today while she is sitting up in the chair. She complains of feeling "awful" and hurting all over (which is chronic). She complaints of pain at her june cath site as it was inserted on 10/18/16. Denies having chest pain or feeling short of breath. She is breathing on room air without respiratory distress. BP 129/75. Fasting blood sugar this morning was low 57, recheck was 93. Objective Vital Signs Vital signs Vital Signs Date Time Temp Pulse Resp B/P Pulse Ox O2 Delivery O2 Flow Rate FiO2 10/25/16 08:00 98.1 93 16 129/75 96 Room Air 10/23/16 16:18 1.00 Height (Feet): 5 Height (Inches): 2.00 Weight (Kilograms): 88.800 General General Appearance: Alert, Orientated x 3, Cooperative, No Acute Distress Eyes (Brief) Eyes: FOUND: EOMI ENMT (Brief) ENMT: FOUND: mucosa moist, normal dentition, NOT FOUND: pharnyx erythema Neck (Brief) Neck: FOUND: midline, NOT FOUND: adenopathy, carotid bruits, tracheal deviation Respiratory (Brief) Respiratory: FOUND: clear all rodrigues, equal bilaterally, NOT FOUND: wheezes Cardiovascular (Brief) Cardiac: FOUND: regular rate, regular rhythm, NOT FOUND: murmur, pedal edema Capillary Refill: <2 sec Abdomen (Brief) Abdominal: FOUND: BS normo active x4, soft, NOT FOUND: distended, tender Extremities (Brief) Extremity : Side: Bilateral Extremity Finding: FOUND: edema (Bilateral lower ext edema) Lymphatic (Brief) Lymphatic: NOT FOUND: adenopathy Musculoskeletal (Brief) Musculoskeletal: NOT FOUND: tenderness Integumentary (Brief) Integumentary: FOUND: dry, pink, warm Neurologic (Brief) Neurological: FOUND: cranial 2-12 intact Psychiatric (Brief) Psychiatric: FOUND: alert, attentive, normal affect, oriented Laboratory Laboratory Laboratory Tests 10/24/16 03:38 10/25/16 04:39 Laboratory Tests 10/24/16 03:38 Sepsis Diagnostic Criteria Sepsis SIRS Criteria: Acute mental status chg (seizure), Temp<=96.8 or >=100.4, Pulse >= 90 beats/min, RR > or = to 20 Severe Sepsis SpO2 <90% or ventilated (seizure) Assessment & Plan Problems: (1) Seizure Status: Acute Assessment & Plan: Left focal motor (2) Severe sepsis Status: Acute Assessment & Plan: R/O; presentation with altered mental status, fever, and new seizures worrisome for meningitis (3) Hypernatremia Status: Acute (4) Hypokalemia Status: Resolved (5) Encephalopathy Status: Resolved (6) Psychosis Status: Chronic (7) Elevated LFTs Status: Chronic (8) Bipolar affective disorder Status: Chronic (9) Hypothyroidism Status: Chronic Assessment & Plan: TSH 1.41 on 10/22/16 (10) GERD (gastroesophageal reflux disease) Status: Chronic (11) Stage III chronic kidney disease Status: Chronic (12) Nonalcoholic steatohepatitis Status: Chronic (13) Migraine Status: Chronic (14) GIOVANA (obstructive sleep apnea) Status: Chronic (15) Hypotension Status: Chronic (16) Morbid obesity Status: Chronic (17) Migraines Status: Chronic (18) Chronic pain syndrome Status: Chronic (19) Major depression Status: Chronic (20) Macrocytic anemia Status: Chronic Assessment & Plan: B12 988 09/21; iron 17, TIBC 124, saturation 14% on 10/22/16 (21) Thrush, oral Status: Acute (22) Insomnia Status: Chronic Qualifiers: Insomnia type: due to other mental disorder Qualified Codes: F51.05 - Insomnia due to other mental disorder; F99 - Mental disorder, not otherwise specified (23) Dysphagia Assessment Plan/Intensity of Service 10/25/16 Continue on 10 day course of empirical treatment for meningitis. Currently on Vancomycin, Rocephin BID and Ampicillin Q4hr. Today is day 6. Continue BGMs carefully as she was hypoglycemic this morning. Not diabetic Last A1C was <4. Trileptal 300 BID for seizure treatment. Appreciate neurological consultation by Dr Mcclure. Continue with Lasix for fluid motivation. Weight overall trended up since admission Hgb remains stable at 9.3 Blood pressure stable at 129/75. Will discuss further orders with attending Code Status Do Not Resuscitate Hospital Course Summary Disclaimer The hospital course summary below is not to be considered part of the above Progress Note. Hospital Course Summary 10/20/16 Admit, inpatient status to CCU. Attending: Dr. Linder. Primary care physician: Dr. Underwood. CODE STATUS: DO NOT RESUSCITATE. 1. New onset seizure disorder - Ativan PRN. NPO status. Will discuss which sz medication to start with Dr. Linder - mult allergies. Consult Dr. Mcclure. Start dexamethasone 0.15 mg/kg Q6h x 2 days. 2. Rule out severe sepsis. 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 Consider LP. Recent PowerPort insertion - cannot r/o bacteremia, BC drawn and pending. May need ANTONINA. Start Vancomycin; ampicillin (rxn = diarrhea); and ceftriaxone at meningitis dosing. 3. Hypokalemia - give IV K. Check mg and phos. 4. Hypernatremia - IVF. 5. Hypocalcemia - check ionized Ca level.de 6. Psychosis - psych consult after mental status improves. 10/21-Kailash Elina is more interactive today although remains below baseline. Will clarify when last epidural injection was with her mother-may require imaging of lumbar spine. Cultures pending. Continue current antibiotics and steroids for empiric meningitis coverage, will readdress possible lumbar puncture under fluoroscopy tomorrow recognizing that cultures are unlikely to be interpretable at that time. No recurrent seizures, Recurrent headaches/generalized pain, minimize narcotics due to seizure activity yesterday. Resume psychiatric medications. Persistent hypernatremia and hyperkalemia-IV fluids changed to half normal with potassium. Persistent hypocalcemia however corrects for degree of hypoalbuminemia-no further supplement indicated. Hemoglobin down with hydration, degree of anemia greater than in the past. B-12 known to be normal. Check iron studies despite macrocytosis. Reassess TSH, levothyroxine dose has varied in multiple admissions recently and TSH elevated in September. Remains at high risk for complications despite improvement seen overnight. 10/22 Clinically Elina continues to improve and is at baseline based on my past experience with this patient. Evaluated by Dr. Mcclure earlier today who requested MRI due to focal seizures and felt infectious etiology less likely given nature of the seizure activity. Patient refuses lumbar puncture. Neither lactic acid or procalcitonin on admission. Will again discuss LP for bio fire markers and cell count knowing that culture will no longer be meaningful with the patient and her mother tomorrow. Continue antibiotics for meningitis, complaints 48 hours of Decadron today. No recurrent seizures, Trileptal initiated earlier today by Dr. Mcclure. Home medications being reintroduced as clinical status permits. Oral potassium supplement initiated in conjunction with continued hypotonic fluids with potassium. Continue current thyroid supplementation-TSH normal currently. Hemoglobin stable overnight. Diarrhea reported, GI panel obtained-no infectious pathogens identified including C. difficile. 10/23/16 Flat affect; but certainly improved and clearing cognitively. Continue meningitis dosing of ampicillin and Rocephin, plus vancomycin. Focal sz - MRI was done yesterday but severely limited interpretation d/t motion artifact. Hypernatremia persists at 147. Will reduce rate of 1/2 NS to 50 ml/hr. Weight is increasing, but urine output has been borderline low and oral intake minimal. Burroughs in place. No reports of sz - cont. Trileptal per Dr. Mcclure. 10/24 Clinically stable. Continue antibiotics empirically for possible meningitis x 10 day course-day 5 today . Vancomycin decreased from twice daily to once daily in response to elevated level. No recurrent seizures, continue Trileptal. Discussed with Dr. Mcclure. Patient irritable but much more alert than on admission or prior to admission by her mother's report. Have contacted Dr. Underwood to discuss recent medication changes. Psychiatry consulted to assist with depression/irritability/insomnia. Discussed with Dr. Almanzar. Poor urine output in conjunction with persistent hypernatremia and increased weight which is well above weight prior to admission (82.7 kg at discharge in September). Low-dose Lasix given 1, continue to follow electrolytes. Antibiotics all administered with normal saline, may require D5W infusion to counter balance. Other fluids discontinued. 10/25/16 Continue on 10 day course of empirical treatment for meningitis. Currently on Vancomycin, Rocephin BID and Ampicillin Q4hr. Today is day 6. Continue BGMs carefully as she was hypoglycemic this morning. Not diabetic Last A1C was <4. Trileptal 300 BID for seizure treatment. Appreciate neurological consultation by Dr Mcclure. Continue with Lasix for fluid motivation. Weight overall trended up since admission Hgb remains stable at 9.3 Blood pressure stable at 129/75. Will discuss further orders with attending BHARATHI REICH DO 10/25/16 1342: Assessment & Plan Hospital Course Summary Hospital Course Summary I saw this patient today. She continues to complain about pain in her legs,arms, sacrum, andhands. She c/o numbness in her hands and her legs. Furthermore she says she cannot walk,eat or sleep. HEART SHOWS A REGULAR RATE AND RHYTHM; lungs are cta;abdomen is soft,nontender with normoactive bowel sounds.Legs show no cyanosis and show no pretibial edema.pt is edentulous. She is receiving a 3 antibiotic therapy for presumed meningitis. She has had no seizures of late.She still receives trileptil for her seizure disorder.her assessment includes the following: seizure disorder;chronic pain syndrome; presumed meningitis;macrocytic anemia and bipolar disorder. I have read Ms Beata's assessment and plan and i AGREE WITH THAT ASSESSMENT AND PLAN. LILIYA MARTIN APRN Oct 25, 2016 10:45 BHARATHI REICH DO Oct 25, 2016 13:42
--- NOTE | 2016-10-25 14:04 | NUR ---
CM NURSE FROM [facility] WHERE SHE CAME FROM AND WILL RETURN CALLED FOR PATIENT UPDATE.
--- NOTE | 2016-10-25 15:33 | NUR ---
SPEECH THERAPY: SCREENING ST was asked to screen pt for toleration of an upgraded diet trial by tiffany Olivares. The pts mother brought the pts dentures and the pt was observed eating a trial of ground meat with sauce without difficulty. The pt was also observed tolerating thin water per straw without s/s of aspiration. Recommend a trial of upgraded diet to soft diet with ground meat/gravy and regular liquids. Please feel free to re-consult ST if pt shows s/s of aspiration.
--- NOTE | 2016-10-25 15:46 | NUR ---
Nutrition Risk R/T poor po intake Diet Order: changed to soft with ground meats with gravy and thin liquids MARIA requested to visit pt regarding poor po intake due to pt's dislike of pureed diet and nectar thick liquids. RD provided a trial of mighty shake, magic cup and nectar thick cranberry juice. Pt disliked all of it. Pt states she did not like the consistency of the food and stated it didn't taste right either. Pt stated that she did not have her dentures at the time and that is why she was on pureed diet. MARIA requested Catie MCDERMOTT to do a swallow screen on pt to see if she could eat ground meats if she had her dentures and to see if pt could tolerate regular liquids. Per SHARRON Haddad pt was able to tolerate soft with ground meats and thin liquids. RD available at [id number]
--- NOTE | 2016-10-25 16:00 | NUR ---
Diet Speech therapy at bedside screens patient. Patient dentures are now with patient. Patient has been refusing food stating that she wanted regular diet and thin liquids. Speech therapy recommends regular diet and thin liquids. Speech may be called back if needed. Patient also has poor appetite.
--- NOTE | 2016-10-25 19:25 | NUR ---
EOS Patient is resting quietly in bed still eating her dinner. Report given to oncoming nurse.
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
[2016-10-25] MEDS: LORAZEPAM 0.5 MG TABLET PO PRN (20:11)
[2016-10-25] MEDS: MORPHINE SULFATE 2 MG SYRINGE IV PRN (21:04)
[2016-10-26] VITALS (8 sets, daily range): BP systolic 99–150; BP diastolic 65–86; PULSE 87–101; RESP 12–22; TEMP 95.5–97.6; O2SAT 93–99
[2016-10-26] MEDS: HYDROCODONE/APAP 5 mg/325 mg TABLET PO PRN ×4 (00:07→23:54)
[2016-10-26] MEDS: AMPICILLIN 2 G in NORMAL SALINE 100 ML IV SCH ×6 (01:05→21:40)
[2016-10-26] MEDS: LORAZEPAM 2 MG/ML INJECTION IV PRN ×2 (02:26→10:43)
--- NOTE | 2016-10-26 05:23 | NUR ---
Status Pt oriented x3. Flat and sad affect. Complained of severe pain (7-9/10) throughout shift. While this nurse was in room with patient she held each breath for several seconds, then released breath with slight moan. But when this nurse was outside room, pt breathed easily and normally without holding. Gave PRN morphine and [place] with no reported results. Gave PRN Ativan twice which helped patient relax and get some sleep. Turned q2h. Adequate output in scott. No episodes of epilepsy observed. Pt located near nurses desk. Will continue to monitor.
[2016-10-26] MEDS: LEVOTHYROXINE 150 MCG TABLET PO SCH (06:06)
[2016-10-26] MEDS: VANCOMYCIN 1.75 G in NORMAL SALINE 500 ML IV SCH (06:06)
[2016-10-26] MEDS: ALBUTEROL/IPRATROPIUM INHAL. 2.5mg-0.5mg/3ml Neb. AEROSOL SCH ×4 (07:31→20:53)
[2016-10-26] MEDS: MORPHINE SULFATE 2 MG SYRINGE IV PRN ×2 (08:31→13:32)
[2016-10-26] MEDS: POTASSIUM CHLORIDE 20 MEQ TABLET PO SCH (09:26)
[2016-10-26] MEDS: OXCARBAZEPINE 300 MG TABLET PO SCH ×2 (09:26→21:40)
[2016-10-26] MEDS: CEFTRIAXONE 2 G in NORMAL SALINE 100 ML IV SCH ×2 (09:26→22:24)
[2016-10-26] MEDS: NYSTATIN 500,000 units/5ml Susp UD PO SCH ×4 (09:26→21:40)
[2016-10-26] MEDS: FLUTICASONE NASAL SPRAY 50 MCG EA NOSTRIL SCH (09:27)
[2016-10-26] MEDS: BuPROPion XL (24 HR) 150 MG TABLET PO SCH (09:27)
[2016-10-26] MEDS: QUETIAPINE 50 MG TABLET PO SCH (09:27)
[2016-10-26] MEDS: LORAZEPAM 0.5 MG TABLET PO SCH (09:28)
--- NOTE | 2016-10-26 09:56 | NUR ---
Speech Screen Completed This Morning: Pt. was laying upright in bed this morning. Pt. was given trials of honey serina cracker and clear soda via cup/straw. Pt. demonstrated adequate labial closure, lingual movement, and laryngeal elevation during both consistencies. Pt. reported having no difficulties swallowing and she exhibited no s/s of aspiration during screen. It is recommended to upgrade Pt. to a soft diet with chopped meats and regular thin liquids. May benefit from dietary consult secondary to lack of appetite. Addendum: 10/26/16 at 1004 by DEBBIE SALEEM I confirm that the documentation entered on this date by my student is accurate to the best of my knowledge.
--- NOTE | 2016-10-26 15:26 | NUR ---
Nutrition Risk F/U Diet Order: soft diet with chopped meats and regular liquids Intake: remains minimal with few bites and dinner on 10/[address] 25% [address] assisted pt in selecting her choices for lunch. Pt remains disinterested in supplements. RD spoke with RN encouraging RN to offer pt a vanilla mighty shake in the afternoon, as pt did not care for the chocolate one. RD will continue to encourage po intake RD available at ext [phone]
--- NOTE | 2016-10-26 18:49 | NUR ---
status Pt A/O x2, doesn't believe shes in hospital. Thinks everyone out to get her, she has not tried to bail out or refuse cares today. V/S stable on RA. Pt rating pain 9/10 at all times asked, PRN pain meds given 3xs and still rates pain if she wasn't sleeping. PRN ativan given this morning to help with rest. Noon pt up to chair for rest of shift. Pt ambulates with 2x assist to stand and pivot from bed to chair.
--- NOTE | 2016-10-26 18:54 | NUR ---
meals Pt has very poor appetite, bites taken for breakfast and lunch. Mother did state she likes chocolate, ice cream and mighty shake mixed and given to help with nutrition.
--- NOTE | 2016-10-26 19:46 | PNPDOC ---
Subjective Date DATE: 10/26/16 TIME: 19:31 Subjective I saw and a visit with Noa Alicia today just about the time she is finishing supper. She was friendly or than she had been in the past and answered questions appropriately. She denies any shortness of breath and she denies any new pains. She is on room air with no respiratory problems. She has no chest pain and denies any bowel or bladder problems while in the hospital now. Objective Vital Signs Vital signs I have read the assessment by the psychiatrist and it is noteworthy that he feels she is still having auditory hallucinations and talks about speaking her hearing the voices of her childhood friends. He further suggest the Wellbutrin should be stopped due to its propensity to 80s people in the seizure activity and he also makes a strong suggestion to increase the Seroquel initially 200 mg daily. I plan to do both those things. Patient is alert and oriented 3 the heart shows a regular rate and rhythm without murmur. The lungs are clear to auscultation bilaterally without wheezing. The abdomen is soft and nontender with the physiologic bowel sounds. The right lower extremity shows 1+ pitting edema pretibially in the left lower extremity shows a trace of edema. All this edema may be chronic. She has remained afebrile and her latest blood pressure was 113/74. Cranial nerves II through XII are grossly intact. Vital Signs Date Time Temp Pulse Resp B/P Pulse Ox O2 Delivery O2 Flow Rate FiO2 10/26/16 17:03 92 10/26/16 16:56 14 93 10/26/16 16:03 96.1 113/74 Room Air 10/23/16 16:18 1.00 Height (Feet): 5 Height (Inches): 2.00 Weight (Kilograms): 89.200 Laboratory Laboratory Laboratory Tests 10/25/16 04:39 Sepsis Diagnostic Criteria Sepsis SIRS Criteria: Acute mental status chg (seizure), Temp<=96.8 or >=100.4, Pulse >= 90 beats/min, RR > or = to 20 Severe Sepsis SpO2 <90% or ventilated (seizure) Assessment & Plan Problems: (1) Seizure Status: Acute Assessment & Plan: Left focal motor (2) Severe sepsis Status: Acute Assessment & Plan: R/O; presentation with altered mental status, fever, and new seizures worrisome for meningitis (3) Hypernatremia Status: Acute (4) Hypokalemia Status: Resolved (5) Encephalopathy Status: Resolved (6) Psychosis Status: Chronic (7) Elevated LFTs Status: Chronic (8) Bipolar affective disorder Status: Chronic (9) Hypothyroidism Status: Chronic Assessment & Plan: TSH 1.41 on 10/22/16 (10) GERD (gastroesophageal reflux disease) Status: Chronic (11) Stage III chronic kidney disease Status: Chronic (12) Nonalcoholic steatohepatitis Status: Chronic (13) Migraine Status: Chronic (14) GIOVANA (obstructive sleep apnea) Status: Chronic (15) Hypotension Status: Chronic (16) Morbid obesity Status: Chronic (17) Migraines Status: Chronic (18) Chronic pain syndrome Status: Chronic (19) Major depression Status: Chronic (20) Macrocytic anemia Status: Chronic Assessment & Plan: B12 988 09/21; iron 17, TIBC 124, saturation 14% on 10/22/16 (21) Thrush, oral Status: Acute (22) Insomnia Status: Chronic Qualifiers: Insomnia type: due to other mental disorder Qualified Codes: F51.05 - Insomnia due to other mental disorder; F99 - Mental disorder, not otherwise specified (23) Dysphagia Assessment Plan/Intensity of Service 10/25/16 Continue on 10 day course of empirical treatment for meningitis. Currently on Vancomycin, Rocephin BID and Ampicillin Q4hr. Today is day 7. Trileptal 300 BID for seizure treatment. . Continue with Lasix for fluid motivation. I have written an order to stop the Wellbutrin or at least put on hold to make sure that the patient does well without it. Also I have then increase the daily Seroquel dose from 50 mg by mouth to 100 mg daily. I have begun to discuss discharge in 2 or 3 days with this patient and she is does seem receptive to the idea. Code Status Do Not Resuscitate Hospital Course Summary Disclaimer The hospital course summary below is not to be considered part of the above Progress Note. Hospital Course Summary I saw this patient today. She continues to complain about pain in her legs,arms, sacrum, andhands. She c/o numbness in her hands and her legs. Furthermore she says she cannot walk,eat or sleep. HEART SHOWS A REGULAR RATE AND RHYTHM; lungs are cta;abdomen is soft,nontender with normoactive bowel sounds.Legs show no cyanosis and show no pretibial edema.pt is edentulous. She is receiving a 3 antibiotic therapy for presumed meningitis. She has had no seizures of late.She still receives trileptil for her seizure disorder.her assessment includes the following: seizure disorder;chronic pain syndrome; presumed meningitis;macrocytic anemia and bipolar disorder. I have read Ms Beata's assessment and plan and i AGREE WITH THAT ASSESSMENT AND PLAN. BHARATHI REICH DO Oct 26, 2016 19:36
[2016-10-27] MEDS: AMPICILLIN 2 G in NORMAL SALINE 100 ML IV SCH ×6 (01:23→21:42)
--- NOTE | 2016-10-27 04:48 | NUR ---
Status Offered pt chocolate ice cream but pt did not want any. Pt complained of constant pain. Appeared to rest comfortably when nurse not in room, but would begin moaning when this nurse entered room. Gave Malcom for pain. Pt stated that it made no difference. Pt initiated few self cares. No other significant changes during shift. Will continue to monitor.
[2016-10-27] MEDS: LEVOTHYROXINE 150 MCG TABLET PO SCH (05:44)
[2016-10-27] MEDS: HYDROCODONE/APAP 5 mg/325 mg TABLET PO PRN ×2 (06:10→21:38)
[2016-10-27] MEDS: VANCOMYCIN 1.75 G in NORMAL SALINE 500 ML IV SCH (06:27)
[2016-10-27] MEDS: ALBUTEROL/IPRATROPIUM INHAL. 2.5mg-0.5mg/3ml Neb. AEROSOL SCH ×4 (07:00→20:20)
[2016-10-27 07:13] VITALS: O2SAT 94
[2016-10-27 08:00] VITALS: BP 123/70; PULSE 90; RESP 18; TEMP 96.4; O2SAT 98
[2016-10-27] MEDS: CEFTRIAXONE 2 G in NORMAL SALINE 100 ML IV SCH ×2 (08:45→22:17)
[2016-10-27] MEDS: LORAZEPAM 0.5 MG TABLET PO SCH (09:38)
[2016-10-27] MEDS: POTASSIUM CHLORIDE 20 MEQ TABLET PO SCH (09:38)
[2016-10-27] MEDS: NYSTATIN 500,000 units/5ml Susp UD PO SCH ×4 (09:38→21:38)
[2016-10-27] MEDS: QUETIAPINE 100 MG TABLET PO SCH (09:39)
[2016-10-27] MEDS: OXCARBAZEPINE 300 MG TABLET PO SCH ×2 (09:39→21:38)
[2016-10-27] MEDS: FLUTICASONE NASAL SPRAY 50 MCG EA NOSTRIL SCH (09:39)
[2016-10-27] MEDS: MORPHINE SULFATE 2 MG SYRINGE IV PRN (09:40)
[2016-10-27 11:03] VITALS: O2SAT 96
--- NOTE | 2016-10-27 11:28 | GENPN ---
[facility] Subjective Date DATE: 10/27/16 TIME: 11:24 Subjective/Severity of Illness Medications Current Medications Medications (Trade) Dose Ordered Sig/Omari Start Time Stop Time Status Last Admin Dose Admin Sodium Chloride (Normal Saline IV) 1,000 ml @ 150 mls/hr Q6H40M 10/20/16 15:30 10/21/16 11:55 DC 10/21/16 03:49 150 MLS/HR Acetaminophen 650 mg 650 mg Q6H PRN 10/20/16 16:45 10/20/16 18:33 DC 10/20/16 16:38 650 MG Vancomycin HCl/ Sodium Chloride (Vancocin/NS) 500 ml @ 250 mls/hr Q12HR 10/21/16 09:00 10/22/16 10:05 DC 10/21/16 22:07 250 MLS/HR Lorazepam 1-2 Q4H PRN 10/20/16 17:15 10/26/16 10:43 2 MG Potassium Chloride/ Lidocaine HCl/ Sodium Chloride (KCl/Xylocaine 1%/NS) 106 ml @ 100 mls/hr Q1H4M 10/20/16 17:15 10/20/16 21:29 DC 10/20/16 20:27 100 MLS/HR Ondansetron HCl (Zofran) 4 mg Q6HR PRN 10/20/16 17:15 10/25/16 19:58 4 MG Acetaminophen 650 mg 650 mg Q6H PRN 10/20/16 17:15 10/20/16 18:33 DC Ampicillin Sodium 2 g/Sodium Chloride 100 ml @ 200 mls/hr Q4HR 10/20/16 21:00 10/26/16 12:03 DC 10/26/16 08:32 200 MLS/HR Ceftriaxone Sodium/Sodium Chloride (Rocephin/NS) 100 ml @ 100 mls/hr Q12HR 10/20/16 18:00 10/26/16 12:03 DC 10/26/16 09:26 100 MLS/HR Dexamethasone Sodium Phosphate (Decadron) 12 mg Q6H 10/20/16 17:15 10/22/16 19:00 DC 10/22/16 17:42 12 MG Acetaminophen (Tylenol Suppository) 650 mg Q4HR PRN 10/20/16 18:15 10/22/16 19:55 DC Albuterol/ Ipratropium 3 ml 3 ml QID 10/20/16 21:00 10/22/16 07:32 DC 10/21/16 19:40 3 ML Potassium Chloride/Sodium Chloride (KCl/0.45% NS) 1,020 ml @ 50 mls/hr [id number] 10/21/16 11:45 10/24/16 17:28 DC 10/24/16 15:39 50 MLS/HR Acetaminophen (Tylenol Regular Strength) 325 mg QID PRN 10/21/16 11:45 Bupropion HCl (Wellbutrin Xl) 150 mg DAILY 10/22/16 09:00 Future hold 10/26/16 09:27 150 MG Lorazepam (Ativan) 0.5 mg DAILY 10/22/16 09:00 10/27/16 09:38 0.5 MG Lorazepam (Ativan) 0.5 mg DAILY PRN 10/21/16 11:45 10/25/16 20:11 0.5 MG Quetiapine Fumarate (Seroquel) 50 mg DAILY 10/22/16 09:00 10/26/16 19:24 DC 10/26/16 09:27 50 MG Ketorolac Tromethamine (Toradol) 15 mg Q6H PRN 10/22/16 02:45 10/22/16 19:55 DC Morphine Sulfate (Morphine Sulfate) 2 mg Q4H PRN 10/22/16 02:45 10/22/16 02:45 DC Morphine Sulfate (Morphine) 2 mg Q4H PRN 10/22/16 02:45 10/27/16 09:40 2 MG Albuterol/ Ipratropium 3 ml 3 ml RTQID 10/22/16 11:00 10/27/16 11:02 3 ML Vancomycin HCl/ Sodium Chloride (Vancocin/NS) 250 ml @ 200 mls/hr Q12H 10/22/16 12:00 10/24/16 12:39 DC 10/24/16 00:11 200 MLS/HR Oxcarbazepine (Trileptal) 300 mg BID 10/22/16 10:00 10/27/16 09:39 300 MG Nystatin (Nystatin Susp.) 5 ml QID 10/22/16 13:00 11/01/16 12:59 10/27/16 09:38 5 ML Fluticasone Propionate (Flonase) 2 spray DAILY 10/23/16 09:00 10/27/16 09:39 2 SPRAY Acetaminophen/ Hydrocodone Bitart ([place] 5/325) 1 tab Q6H PRN 10/22/16 11:00 10/27/16 06:10 1 TAB Levothyroxine Sodium (Synthroid) 150 mcg ACB 10/23/16 06:30 10/27/16 05:44 150 MCG Potassium Chloride (Kdur) 20 meq WB 10/22/16 19:45 10/23/16 06:11 DC 10/22/16 20:10 20 MEQ Potassium Chloride (Kdur) 20 meq WB 10/23/16 08:00 10/27/16 09:38 20 MEQ Benzonatate (TESSALON PERLES 100 mg) 100 mg TID PRN 10/23/16 16:30 Metoclopramide HCl (Reglan) 5 mg AC PRN 10/23/16 16:30 Quetiapine Fumarate 50 mg 50 mg DAILY PRN 10/23/16 16:30 10/25/16 08:42 50 MG Vancomycin HCl/ Sodium Chloride (Vancocin/NS) 500 ml @ 250 mls/hr Q24H 10/25/16 06:00 10/27/16 06:27 250 MLS/HR Sumatriptan Succinate 50 mg 50 mg 2XW PRN 10/24/16 13:30 Ampicillin Sodium 2 g/Sodium Chloride 100 ml @ 200 mls/hr Q4HR 10/26/16 13:00 11/02/16 12:59 10/27/16 09:55 200 MLS/HR Ceftriaxone Sodium/Sodium Chloride (Rocephin/NS) 100 ml @ 100 mls/hr Q12HR 10/26/16 21:00 11/02/16 20:59 10/27/16 08:45 100 MLS/HR Quetiapine Fumarate (Seroquel) 100 mg DAILY 10/27/16 09:00 10/27/16 09:39 100 MG Subjective Pt seen and chart examined. Pt is sleepy this morning. She states she is dealing with some pain and overall just does not feel well. She states her mood is fairly stable. She denies any hallucinations at this time. Denies S/ I. Tolerating meds Time of Service: 11:15 Start Time: 11:15 Stop Time: 11:30 Care >50% of this visit spent in counseling/coordination care. [facility] Exam Vitals Vital Signs Date Time Temp Pulse Resp B/P Pulse Ox O2 Delivery O2 Flow Rate FiO2 10/27/16 11:05 20 10/27/16 11:04 89 10/27/16 11:03 96 10/27/16 08:00 96.4 123/70 Room Air 10/23/16 16:18 1.00 Physical examination performed by the hospitalist. Height (Feet): 5 Height (Inches): 2.00 Mental Status Exam Muscle Strength/Tone: Weak Dressing: Casual Grooming: Good Attitude: Guarded Motor Activity: Normal, Retardation Eye Contact: Fair Speech: Slowed Volume: Soft Rhythm: Appropriate Rhythm Sensory: Alert Orientation: Oriented X4 Mood: Neutral Affect: Congruent Rate of Thoughts: Delayed Thought Organization: [place] Associations: Intact Abstract Reasoning: Poor abstract reasoning Thought Content: Normal Perception/Psychotic: Hx psychosis,not current Attention Span/Concentration: Short Span Fund of Knowledge: Poor fund of knowledge Memory: Poor-immediate Suicidal Ideation: None Homicidal Ideation: None Insight: Fair Judgment: Fair Impulse Control: Fair Laboratory Tests Test 10/26/16 11:33 10/26/16 16:23 10/26/16 16:59 10/26/16 20:04 Glucometer 72mg/dL 65mg/dL 98mg/dL 96mg/dL Test 10/27/16 05:41 10/27/16 10:35 Glucometer 78mg/dL 94mg/dL Assessment and Plan (1) Bipolar disorder, curr episode depressed, severe, w/psychotic features Assessment: Recommendations. 1. Given the recent seizure episode, will suggest stopping Bupropion as it could lower seizure threshold and predispose patient to seizure. 2. Increase the dose of Seroquel from 50mg to 100mg and if she tolerates it, increase to 150mg after 2 days. 3.Cont other psych medications. 4. Thank you for letting us participate in the care of this patient and do not hesitate to call us if you have any question (2) Encephalopathy (3) Seizure (4) Severe sepsis Consider switching Seroquel 100mg to HS dosing due to possible sedating effects OVIDIO JIMÉNEZ MD Oct 27, 2016 11:28
[2016-10-27 16:08] VITALS: BP 93/54; PULSE 92; RESP 16; TEMP 96.4; O2SAT 94
--- NOTE | 2016-10-27 19:30 | PNPDOC ---
Subjective Date DATE: 10/27/16 TIME: 19:10 Subjective Patient is alert and just finishing supper when I entered the room to visit. She denies shortness of breath and patient denies any chest pain. Denies any any wheezing or coughing. She admits to only 1 bowel movement in the past 24 hours. When questioned does state her appetite might be off a tiny bit today but appears to be taking most of her supper. When asked if she still has a normal aches and pains which she more or less denied yesterday she says yes that all of her aches and pains or her back. These include generalized leg pains and the sacral pain she says she's had since she was well-child. She also complains of foot numbness but is confused as to which foot it is more in the left or the right. When questioned at even greater length about the foot numbness she says well maybe they both hurt a little bit. However, she is unable to say which one hurts the most. Patient still denies having coming here from [facility] although we know that to be a true fact. Objective Vital Signs Vital signs Heart shows a regular rate and rhythm without murmur Lungs are clear to auscultation bilaterally with no wheezing Abdomen is soft nontender bowel sounds are physiologic Extremities show no clubbing or cyanosis bilaterally . Patient remains somewhat confused and is still not cognizant of the fact that she did come here from [place] when she was first admitted. cranial nerves II through XII are grossly intact Vital Signs Date Time Temp Pulse Resp B/P Pulse Ox O2 Delivery O2 Flow Rate FiO2 10/27/16 16:08 96.4 92 16 93/54 94 Room Air 10/23/16 16:18 1.00 Height (Feet): 5 Height (Inches): 2.00 Weight (Kilograms): 87.300 Sepsis Diagnostic Criteria Sepsis SIRS Criteria: Acute mental status chg (seizure), Temp<=96.8 or >=100.4, Pulse >= 90 beats/min, RR > or = to 20 Severe Sepsis SpO2 <90% or ventilated (seizure) Assessment & Plan Problems: (1) Seizure Status: Acute Assessment & Plan: Left focal motor (2) Severe sepsis Status: Acute Assessment & Plan: R/O; presentation with altered mental status, fever, and new seizures worrisome for meningitis (3) Hypernatremia Status: Acute (4) Hypokalemia Status: Resolved (5) Encephalopathy Status: Resolved (6) Psychosis Status: Chronic (7) Elevated LFTs Status: Chronic (8) Bipolar affective disorder Status: Chronic (9) Hypothyroidism Status: Chronic Assessment & Plan: TSH 1.41 on 10/22/16 (10) GERD (gastroesophageal reflux disease) Status: Chronic (11) Stage III chronic kidney disease Status: Chronic (12) Nonalcoholic steatohepatitis Status: Chronic (13) Migraine Status: Chronic (14) GIOVANA (obstructive sleep apnea) Status: Chronic (15) Hypotension Status: Chronic (16) Morbid obesity Status: Chronic (17) Migraines Status: Chronic (18) Chronic pain syndrome Status: Chronic (19) Major depression Status: Chronic (20) Macrocytic anemia Status: Chronic Assessment & Plan: B12 988 09/21; iron 17, TIBC 124, saturation 14% on 10/22/16 (21) Thrush, oral Status: Acute (22) Insomnia Status: Chronic Qualifiers: Insomnia type: due to other mental disorder Qualified Codes: F51.05 - Insomnia due to other mental disorder; F99 - Mental disorder, not otherwise specified (23) Dysphagia Assessment & Plan: Dr. Reich note of 10/27/16: I believe this is day 8 of patient's 10 day regimen for the antibiotic regimen for meningitis. She remains on a regimen of vancomycin once a day, Rocephin once a day, and IV ampicillin every 6 hours. Her more prominent diagnoses are 1 bipolar affective disorder, 2 seizures, 3 sepsis, for hypernatremia which is now resolved, 5 hypokalemia which is also resolved, chronic hypothyroidism which is controlled and 7 GERD which is medication. He also suffers from diagnoses of major depression which we have not addressed other than to keep her on medicine. From home. Current plans are to discharge her on Saturday or Saturday after she's had the full 10 days of antibiotics and we do plan to do a follow-up cbc and BMP and a possible give a urine urine for analysis tomorrow. She is much more stable now as compared to when she first came in several days ago. Assessment Plan/Intensity of Service 10/25/16 Continue on 10 day course of empirical treatment for meningitis. Currently on Vancomycin, Rocephin BID and Ampicillin Q4hr. Today is day 7. Trileptal 300 BID for seizure treatment. . Continue with Lasix for fluid motivation. I have written an order to stop the Wellbutrin or at least put on hold to make sure that the patient does well without it. Also I have then increase the daily Seroquel dose from 50 mg by mouth to 100 mg daily. I have begun to discuss discharge in 2 or 3 days with this patient and she is does seem receptive to the idea. Code Status Do Not Resuscitate Hospital Course Summary Disclaimer The hospital course summary below is not to be considered part of the above Progress Note. Hospital Course Summary I saw this patient today. She continues to complain about pain in her legs,arms, sacrum, andhands. She c/o numbness in her hands and her legs. Furthermore she says she cannot walk,eat or sleep. HEART SHOWS A REGULAR RATE AND RHYTHM; lungs are cta;abdomen is soft,nontender with normoactive bowel sounds.Legs show no cyanosis and show no pretibial edema.pt is edentulous. She is receiving a 3 antibiotic therapy for presumed meningitis. She has had no seizures of late.She still receives trileptil for her seizure disorder.her assessment includes the following: seizure disorder;chronic pain syndrome; presumed meningitis;macrocytic anemia and bipolar disorder. I have read Ms Beata's assessment and plan and i AGREE WITH THAT ASSESSMENT AND PLAN. BHARATHI REICH DO Oct 27, 2016 19:20
--- NOTE | 2016-10-27 20:00 | NUR ---
status Pt A/O x2, still has ideas of people out to get her. Pt not trying to get out of bed or refuse cares. PRN pain meds given 1x and pt able to sleep during afternoon, appeared comfortable. Pt ate a little better today, still has low appetite. Scott to DD, good output for shift. PAC flushing and aspirating well. N.O. to get UA from scott.
[2016-10-28] VITALS (9 sets, daily range): BP systolic 106–117; BP diastolic 65–68; PULSE 92–104; RESP 16–20; TEMP 96.1–97.9; O2SAT 91–100
[2016-10-28 00:37] LABS: BLOOD, URINE NEGATIVE (NEGATIVE); COLOR,URINE YELLOW (YELLOW); LEUKOCYTE ESTERASE ,URINE NEGATIVE (NEGATIVE); NITRITE,URINE NEGATIVE (NEGATIVE); UROBILINOGEN,URINE 0.2 EU/DL (NORMAL)
[2016-10-28] MEDS: AMPICILLIN 2 G in NORMAL SALINE 100 ML IV SCH ×2 (01:52→05:51)
[2016-10-28] MEDS: HYDROCODONE/APAP 5 mg/325 mg TABLET PO PRN ×3 (03:38→16:05)
[2016-10-28 05:04] LABS: EOSINOPHILS # (AUTO) 0.2 T/MM3 (0-0.5); EOSINOPHILS % (AUTO) 3.2 % (0-4); HCT - HEMATOCRIT 32.4 % (36-46); HGB - HEMOGLOBIN 10.3 GM/DL (12-16); IMMATURE GRANULOCYTE # (AUTO) 0.02 T/MM3 (0.00-0.03); IMMATURE GRANULOCYTE % (AUTO) 0.4 % (0.0-0.5); LYMPHOCYTES # (AUTO) 2.7 T/MM3 (1-4.8); LYMPHOCYTES % (AUTO) 48.3 % (23-45); MEAN CORPUSCULAR HGB 32.4 UUG (26-34); MEAN CORPUSCULAR HGB CONC(MCHC 31.8 GM/DL (31-37); MEAN CORPUSCULAR VOLUME 101.9 UM3 (80-100); MEAN PLATELET VOLUME 9.4 UM3 (9.4-12.4); MONOCYTES # (AUTO) 0.4 T/MM3 (0-0.8); MONOCYTES % (AUTO) 7.8 % (0-9.0); NEUTROPHILS #(AUTO)-ABSOLUTE 2.3 T/MM3 (1.8-7.7); NEUTROPHILS % (AUTO) 40.3 % (33-66); RED BLOOD COUNT 3.18 M/MM3 (4.00-5.20); WBC - WHITE BLOOD COUNT 5.6 T/MM3 (4.5-11.0)
[2016-10-28 05:20] LABS: ANION GAP 2 MEQ/L (5-15); BUN/CREATININE RATIO 6 RATIO (6-26); CHLORIDE 110 MEQ/L (98-107); CO2 - CARBON DIOXIDE 28 MEQ/L (22-30); CREATININE 0.5 MG/DL (0.7-1.2); GLOMERULAR FILTRATION RATE 127; GLUCOSE 68 MG/DL (65-110); POTASSIUM 3.3 MEQ/L (3.6-5); SODIUM 140 MEQ/L (134-144)
[2016-10-28] MEDS ORDERED: POTASSIUM CHLORIDE 20 MEQ TABLET PO ONE (05:30)
[2016-10-28] MEDS: LEVOTHYROXINE 150 MCG TABLET PO SCH (05:50)
[2016-10-28] MEDS: VANCOMYCIN 1.75 G in NORMAL SALINE 500 ML IV SCH (06:31)
--- NOTE | 2016-10-28 07:35 | NUR ---
shift summary pt is a/o x3 and with stand and pivot. pt is on RA. prn norco given for pain. pt has had adequate output. vss. bgm this am was 79. pt refused any kind of food or drink.
[2016-10-28] MEDS: ALBUTEROL/IPRATROPIUM INHAL. 2.5mg-0.5mg/3ml Neb. AEROSOL SCH ×4 (07:47→20:05)
[2016-10-28] MEDS: CEFTRIAXONE 2 G in NORMAL SALINE 100 ML IV SCH (08:54)
[2016-10-28] MEDS: OXCARBAZEPINE 300 MG TABLET PO SCH ×2 (10:05→20:26)
[2016-10-28] MEDS: FLUTICASONE NASAL SPRAY 50 MCG EA NOSTRIL SCH (10:05)
[2016-10-28] MEDS: NYSTATIN 500,000 units/5ml Susp UD PO SCH ×4 (10:05→20:26)
[2016-10-28] MEDS: QUETIAPINE 100 MG TABLET PO SCH (10:06)
[2016-10-28] MEDS: POTASSIUM CHLORIDE 20 MEQ TABLET PO SCH ×2 (10:06→18:01)
[2016-10-28] MEDS: LORAZEPAM 0.5 MG TABLET PO SCH (10:06)
[2016-10-28] MEDS: MORPHINE SULFATE 2 MG SYRINGE IV PRN (11:59)
[2016-10-28] MEDS ORDERED: NORMAL SALINE IV ONE (14:45)
[2016-10-28] MEDS ORDERED: CALCIUM GLUCONATE IV ONE (14:45)
--- NOTE | 2016-10-28 14:56 | PNPDOC ---
PINADIANA Arvind HAIRSPRING STUDDER 10/28/16 1444: Subjective Date DATE: 10/28/16 TIME: 14:39 Subjective Elina is seen today in follow up. She is picking at her food, not eating much. Chart reflects that she has not been eating well. She does have some edema in arms, right > left. She nods yes and know. Will not really interact with me. Marcin, withdrawn. Chart is reviewed for collateral information. Objective Vital Signs Vital signs Vital Signs Date Time Temp Pulse Resp B/P Pulse Ox O2 Delivery O2 Flow Rate FiO2 10/28/16 13:08 16 10/28/16 11:33 91 10/28/16 11:30 93 10/28/16 07:26 96.1 117/68 Room Air Height (Feet): 5 Height (Inches): 2.00 Weight (Kilograms): 89.300 General General Appearance: Alert, Cooperative, No Acute Distress Comments Withdrawn. Not very interactive. Eyes (Brief) Eyes: FOUND: EOMI, PERRL, NOT FOUND: foreign body, scleral icterus Neck (Brief) Neck: FOUND: midline, NOT FOUND: JVD, nuchal rigidity, spasm Comments No c/o neck pain or limitations to ROM. Respiratory (Brief) Respiratory: FOUND: clear all rodrigues, equal bilaterally, symmetrical, NOT FOUND : rales, wheezes Comments Diminished in bases. Cardiovascular (Brief) Cardiac: FOUND: peripheral edema (Generalized edema, right arm > left arm. ), regular rate, regular rhythm Abdomen (Brief) Abdominal: FOUND: BS normo active x4, soft, NOT FOUND: distended, tender Extremities (Brief) Extremity : Side: Bilateral Extremity Finding: FOUND: edema Musculoskeletal (Brief) Musculoskeletal: FOUND: extremities move equally Integumentary (Brief) Integumentary: FOUND: dry, warm Comments Pale. Psychiatric (Brief) Psychiatric: FOUND: alert Comments Flat, depressed affect. Laboratory Laboratory Laboratory Tests 10/28/16 04:49 Laboratory Tests 10/28/16 04:49 Microbiology Microbiology BC x 2 negative. Radiology Reviewed. Sepsis Diagnostic Criteria Sepsis SIRS Criteria: Acute mental status chg (seizure), Temp<=96.8 or >=100.4, Pulse >= 90 beats/min, RR > or = to 20 Severe Sepsis SpO2 <90% or ventilated (seizure) Assessment & Plan Problems: (1) Seizure Status: Acute Assessment & Plan: Left focal motor (2) Severe sepsis Status: Acute Assessment & Plan: R/O; presentation with altered mental status, fever, and new seizures worrisome for meningitis (3) Hypernatremia Status: Acute (4) Hypokalemia Status: Resolved (5) Encephalopathy Status: Resolved (6) Psychosis Status: Chronic (7) Elevated LFTs Status: Chronic (8) Bipolar affective disorder Status: Chronic (9) Hypothyroidism Status: Chronic Assessment & Plan: TSH 1.41 on 10/22/16 (10) GERD (gastroesophageal reflux disease) Status: Chronic (11) Stage III chronic kidney disease Status: Chronic (12) Nonalcoholic steatohepatitis Status: Chronic (13) Migraine Status: Chronic (14) GIOVANA (obstructive sleep apnea) Status: Chronic (15) Hypotension Status: Chronic (16) Morbid obesity Status: Chronic (17) Migraines Status: Chronic (18) Chronic pain syndrome Status: Chronic (19) Major depression Status: Chronic (20) Macrocytic anemia Status: Chronic Assessment & Plan: B12 988 09/21; iron 17, TIBC 124, saturation 14% on 10/22/16 (21) Thrush, oral Status: Acute (22) Insomnia Status: Chronic Qualifiers: Insomnia type: due to other mental disorder Qualified Codes: F51.05 - Insomnia due to other mental disorder; F99 - Mental disorder, not otherwise specified (23) Dysphagia (24) Hypocalcemia Assessment Plan/Intensity of Service 10/28/16- Elina remains withdrawn. Certainly seems to have a significant psych component. Appreciate psychiatry's help. Stop empiric antibiotics to cover possible meningitis today. She has completed high dose decadron. Recent port placement right subclavian. Blood cultures were negative and she has no murmur. Will obtain venous sono since she does have swelling on the right side. Significant hypokalemia- increase KCl to BID. Add low dose Aldactone to help with some mild diuresis and potassium retention. Will need to monitor potassium and renal function carefully. Replace Calcium - IV Ca Gluconate x 1. Suspect chronic nutritional deficiencies given hx of Gastric bypass. She does have macrocytic anemia, labs are noted. Add PO iron for iron deficiency. Pt is still not eating. She may need inpatient psychiatric stabilization [facility] DVT Prophylaxis: SCD'S Code Status Do Not Resuscitate Hospital Course Summary Disclaimer The hospital course summary below is not to be considered part of the above Progress Note. Hospital Course Summary I saw this patient today. She continues to complain about pain in her legs,arms, sacrum, andhands. She c/o numbness in her hands and her legs. Furthermore she says she cannot walk,eat or sleep. HEART SHOWS A REGULAR RATE AND RHYTHM; lungs are cta;abdomen is soft,nontender with normoactive bowel sounds.Legs show no cyanosis and show no pretibial edema.pt is edentulous. She is receiving a 3 antibiotic therapy for presumed meningitis. She has had no seizures of late.She still receives trileptil for her seizure disorder.her assessment includes the following: seizure disorder;chronic pain syndrome; presumed meningitis;macrocytic anemia and bipolar disorder. I have read Ms Cota's assessment and plan and i AGREE WITH THAT ASSESSMENT AND PLAN. 10/25/16 Continue on 10 day course of empirical treatment for meningitis. Currently on Vancomycin, Rocephin BID and Ampicillin Q4hr. Today is day 7. Trileptal 300 BID for seizure treatment. . Continue with Lasix for fluid motivation. I have written an order to stop the Wellbutrin or at least put on hold to make sure that the patient does well without it. Also I have then increase the daily Seroquel dose from 50 mg by mouth to 100 mg daily. I have begun to discuss discharge in 2 or 3 days with this patient and she is does seem receptive to the idea. BHARATHI CHEN DO 10/28/16 1803: Assessment & Plan Plan/Intensity of Service 10/28/2016 Dr. Chen: I saw Noa Alicia today after she was seen by Gretta Whitney, our nurse practitioner Noa made her usual complaints but generalized pain and was clearly not interested in eating her supper. She denies shortness of breath and denied any chest pain. She did complain of her standard leg pain and backache. She denied any nausea or vomiting or abdominal pain a quick exam showed her lungs to be clear bilaterally; heart showed regular rate and rhythm without murmur; abdomen was soft and nontender bowel sounds were physiologic ; extremities show no cyanosis and no edema. Her arm does show some edema and the ultrasound should clarify whether not there is any thrombosis to worry about. I have reviewed the progress note done by Diana Whitney and the assessment and plan and hopefully improve. We did discuss this patient at length. A psychiatric consult about her total lack of interest in food of present may be required although we have previously consult psychiatry and they may give us her opinion without a second formal consult. Nevertheless, the idea of a inpatient psychiatric stay to get her eating habits normalized would probably be a good idea. DIANA WHITNEY APRN Oct 28, 2016 14:44 BHARATHI CHEN DO Oct 28, 2016 18:03
[2016-10-28] MEDS: SPIRONOLACTONE 25 MG TABLET PO SCH (15:25)
[2016-10-28] MEDS: FERROUS SULFATE 324 MG TABLET PO SCH (18:01)
--- NOTE | 2016-10-28 18:24 | NUR ---
status Pt A/O x2, confusion with time and people. V/S stable on RA. Pt has increased in pain when pulled up/ sat up to eat, rating 8-9/10, PRN meds given 3xs today, gave her some relief and she was able to sleep. Pt low appetite, eating @ 25-50% of meals, drinking well. Taking PO meds well, will question with some meds that look different or that she thinks she has already taken. Burroughs to DD, good output, 1 lg soft BM today.
[2016-10-28] MEDS: LORAZEPAM 0.5 MG TABLET PO PRN (20:27)
[2016-10-29] VITALS (9 sets, daily range): BP systolic 113–126; BP diastolic 68–84; PULSE 90–96; RESP 12–20; TEMP 97.7–98; O2SAT 92–96
[2016-10-29] MEDS: HYDROCODONE/APAP 5 mg/325 mg TABLET PO PRN ×4 (00:24→20:25)
--- NOTE | 2016-10-29 05:18 | NUR ---
Shift Summary Patient alert and oriented x3, VSS. On RA. Patient frequently c/o pain. PRN Malabar given, see eMar. Patient slept comfortably after Malabar but c/o pain again with turning. Heels elevated off of bed. Burroughs catheter patent and draining adequate output. One small incontinent BM. Right PAC locked, flushed and aspirated well. Patient slept between cares.
[2016-10-29 05:45] LABS: BASOPHILS % (AUTO) 0.2 % (0-2); EOSINOPHILS # (AUTO) 0.2 T/MM3 (0-0.5); EOSINOPHILS % (AUTO) 3.6 % (0-4); HCT - HEMATOCRIT 30.8 % (36-46); HGB - HEMOGLOBIN 9.7 GM/DL (12-16); IMMATURE GRANULOCYTE # (AUTO) 0.02 T/MM3 (0.00-0.03); IMMATURE GRANULOCYTE % (AUTO) 0.4 % (0.0-0.5); LYMPHOCYTES # (AUTO) 2.4 T/MM3 (1-4.8); LYMPHOCYTES % (AUTO) 47.4 % (23-45); MEAN CORPUSCULAR HGB 32.2 UUG (26-34); MEAN CORPUSCULAR HGB CONC(MCHC 31.5 GM/DL (31-37); MEAN CORPUSCULAR VOLUME 102.3 UM3 (80-100); MEAN PLATELET VOLUME 9.7 UM3 (9.4-12.4); MONOCYTES # (AUTO) 0.6 T/MM3 (0-0.8); MONOCYTES % (AUTO) 11.6 % (0-9.0); NEUTROPHILS #(AUTO)-ABSOLUTE 1.9 T/MM3 (1.8-7.7); NEUTROPHILS % (AUTO) 36.8 % (33-66); RED BLOOD COUNT 3.01 M/MM3 (4.00-5.20)
[2016-10-29 05:54] LABS: ALBUMIN 1.6 G/DL (3.5-5.0); ANION GAP 1 MEQ/L (5-15); BLOOD UREA NITROGEN < 2.0 MG/DL (7-17); CALCIUM 7.4 MG/DL (8.4-10.2); CHLORIDE 110 MEQ/L (98-107); CO2 - CARBON DIOXIDE 28 MEQ/L (22-30); CREATININE 0.5 MG/DL (0.7-1.2); GLOMERULAR FILTRATION RATE 127; GLUCOSE 70 MG/DL (65-110); MAGNESIUM 1.7 MG/DL (1.6-2.3); PHOSPHORUS 3.3 MG/DL (2.5-4.5); POTASSIUM 3.7 MEQ/L (3.6-5); SODIUM 139 MEQ/L (134-144)
[2016-10-29] MEDS: LEVOTHYROXINE 150 MCG TABLET PO SCH (06:26)
[2016-10-29] MEDS: ALBUTEROL/IPRATROPIUM INHAL. 2.5mg-0.5mg/3ml Neb. AEROSOL SCH ×4 (08:29→19:52)
[2016-10-29] MEDS: DOCUSATE SODIUM 100 MG CAPSULE PO SCH (08:46)
[2016-10-29] MEDS: LORAZEPAM 0.5 MG TABLET PO SCH (08:46)
[2016-10-29] MEDS: QUETIAPINE 100 MG TABLET PO SCH (08:47)
[2016-10-29] MEDS: SPIRONOLACTONE 25 MG TABLET PO SCH (08:47)
[2016-10-29] MEDS: POTASSIUM CHLORIDE 20 MEQ TABLET PO SCH ×2 (08:47→17:47)
[2016-10-29] MEDS: NYSTATIN 500,000 units/5ml Susp UD PO SCH ×4 (08:47→20:24)
[2016-10-29] MEDS: FLUTICASONE NASAL SPRAY 50 MCG EA NOSTRIL SCH (08:48)
[2016-10-29] MEDS: OXCARBAZEPINE 300 MG TABLET PO SCH ×2 (08:48→20:24)
--- NOTE | 2016-10-29 09:51 | DI ---
Indication: ITS.REASON: edema, recent port placement PROCEDURE: US VENOUS DUPLEX, UPPER EXT RT: Encounter: Initial Comparison: None Technique: Color Doppler duplex and grayscale sonographic imaging of the right upper extremity was performed. The study is technically limited due to immobility of the patient. FINDINGS: There is no evidence for acute deep venous thrombosis in the right arm. The right internal jugular, subclavian, axillary and paired brachial veins were evaluated; compression and augmentation were applied where possible. In addition, color and pulsed Doppler demonstrate appropriate spontaneous flow, cardiac pulsatility and variation with respiration. IMPRESSION: No definitive evidence of acute DVT in the right upper extremity. .
--- NOTE | 2016-10-29 11:59 | NUR ---
MEL THIS WORKER SPOKE TO [facility]BETO AT [facility] AND PROVIDED UPDATE ON PT.
--- NOTE | 2016-10-29 12:06 | PNPDOC ---
ISABELLA ROSALES CERTIFIED TRAVEL COUNSELOR 10/29/16 1111: Subjective Date DATE: 10/29/16 TIME: 11:10 Subjective Elina complains of a terrible migraine today. She holds her right hand above her right eye. She states it is worse than normal. She complains of nausea, which is frequently associated with her migraines. She also complains of abdominal pain, which is also worse than normal. She does not feel like eating. Her appetite has been very poor, and she only feels like eating fast food. We discussed taking her Burroughs catheter out, but she is hesitant because she feels too weak and she is not ready to have it out yet. I discussed her ambulatory status with the nurse, and she is up with assistance of 2. Previously, she has been incontinent. She denies any chest pain or shortness of breath. Objective Vital Signs Vital signs Vital Signs Date Time Temp Pulse Resp B/P Pulse Ox O2 Delivery O2 Flow Rate FiO2 10/29/16 08:38 98.0 90 20 126/84 96 Room Air Height (Feet): 5 Height (Inches): 2.00 Weight (Kilograms): 90.900 General General Appearance: Alert, Obese, Orientated x 3, Well Nourished, Well Developed, Mild Distress (her hand is up by her right forehead - c/o migraine) Eyes (Brief) Eyes: FOUND: PERRL, NOT FOUND: scleral icterus ENMT (Brief) ENMT: FOUND: mucosa moist, NOT FOUND: pharnyx erythema Respiratory (Brief) Respiratory: FOUND: clear all rodrigues, equal bilaterally Cardiovascular (Brief) Cardiac: FOUND: regular rate, regular rhythm Abdomen (Brief) Abdominal: FOUND: BS normo active x4, soft, NOT FOUND: distended, tender (Brief) Comments Burroughs to DD Extremities (Brief) Extremity : Side: Bilateral Extremity: leg Extremity Finding: FOUND: edema (1-2+) Musculoskeletal (Brief) Musculoskeletal: NOT FOUND: deformity Integumentary (Brief) Integumentary: FOUND: dry, warm, NOT FOUND: rash (hx intertriginous candidal rash - none seen on exam today) Psychiatric (Brief) Psychiatric: FOUND: alert, attentive, oriented, NOT FOUND: normal affect ( depressed) Laboratory Laboratory Laboratory Tests 10/28/16 04:49 10/29/16 04:57 Laboratory Tests 10/28/16 04:49 10/29/16 04:57 Sepsis Diagnostic Criteria Sepsis SIRS Criteria: Acute mental status chg (seizure), Temp<=96.8 or >=100.4, Pulse >= 90 beats/min, RR > or = to 20 Severe Sepsis SpO2 <90% or ventilated (seizure) Assessment & Plan Problems: (1) Seizure Status: Acute Assessment & Plan: Left focal motor (2) Severe sepsis Status: Resolved Assessment & Plan: R/O; presentation with altered mental status, fever, and new seizures worrisome for meningitis (3) Hypernatremia Status: Resolved (4) Hypokalemia Status: Resolved (5) Encephalopathy Status: Resolved (6) Psychosis Status: Chronic (7) Elevated LFTs Status: Chronic (8) Bipolar affective disorder Status: Chronic (9) Hypothyroidism Status: Chronic Assessment & Plan: TSH 1.41 on 10/22/16 (10) GERD (gastroesophageal reflux disease) Status: Chronic (11) Stage III chronic kidney disease Status: Chronic (12) Nonalcoholic steatohepatitis Status: Chronic (13) Migraine Status: Chronic (14) GIOVANA (obstructive sleep apnea) Status: Chronic (15) Hypotension Status: Chronic (16) Morbid obesity Status: Chronic (17) Migraines Status: Chronic (18) Chronic pain syndrome Status: Chronic (19) Major depression Status: Chronic (20) Macrocytic anemia Status: Chronic Assessment & Plan: B12 988 09/21; iron 17, TIBC 124, saturation 14% on 10/22/16 (21) Thrush, oral Status: Acute (22) Insomnia Status: Chronic Qualifiers: Insomnia type: due to other mental disorder Qualified Codes: F51.05 - Insomnia due to other mental disorder; F99 - Mental disorder, not otherwise specified (23) Dysphagia (24) Hypocalcemia Assessment Plan/Intensity of Service Severe sepsis syndrome has resolved. Antibiotics were discontinued on 10/28/16. History of bipolar and depression, will obtain generations screen. Poor oral intake and concern for malnutrition. Dietary has been consulted for recommendations. Perhaps psychiatry can shed some light on this topic. Burroughs catheter was placed on admission. Because of somnolence and postictal state. Will remove Burroughs catheter today. Migraine: Imitrex as needed. Chronic abdominal pain: Patient notes it seems worse today. She had a soft small bowel movement early this morning. Continue to serially examined, consider , if it continues to worsen, though at this point, there is no evidence to suggest an acute abdomen. Ultrasound on her right arm was negative for acute DVT. Continue Trileptal for seizure prevention and mood disorder. DVT Prophylaxis: SCD'S Code Status Do Not Resuscitate Hospital Course Summary Disclaimer The hospital course summary below is not to be considered part of the above Progress Note. Hospital Course Summary I saw this patient today. She continues to complain about pain in her legs,arms, sacrum, andhands. She c/o numbness in her hands and her legs. Furthermore she says she cannot walk,eat or sleep. HEART SHOWS A REGULAR RATE AND RHYTHM; lungs are cta;abdomen is soft,nontender with normoactive bowel sounds.Legs show no cyanosis and show no pretibial edema.pt is edentulous. She is receiving a 3 antibiotic therapy for presumed meningitis. She has had no seizures of late.She still receives trileptil for her seizure disorder.her assessment includes the following: seizure disorder;chronic pain syndrome; presumed meningitis;macrocytic anemia and bipolar disorder. I have read Ms Cota's assessment and plan and i AGREE WITH THAT ASSESSMENT AND PLAN. 10/25/16 Continue on 10 day course of empirical treatment for meningitis. Currently on Vancomycin, Rocephin BID and Ampicillin Q4hr. Today is day 7. Trileptal 300 BID for seizure treatment. . Continue with Lasix for fluid motivation. I have written an order to stop the Wellbutrin or at least put on hold to make sure that the patient does well without it. Also I have then increase the daily Seroquel dose from 50 mg by mouth to 100 mg daily. I have begun to discuss discharge in 2 or 3 days with this patient and she is does seem receptive to the idea. 10/29/16 Severe sepsis syndrome has resolved. Antibiotics were discontinued on 10/28/16. History of bipolar and depression, will obtain generations screen. Poor oral intake and concern for malnutrition. Dietary has been consulted for recommendations. Perhaps psychiatry can shed some light on this topic. Burroughs catheter was placed on admission. Because of somnolence and postictal state. Will remove Burroughs catheter today. Migraine: Imitrex as needed. Chronic abdominal pain: Patient notes it seems worse today. She had a soft small bowel movement early this morning. Continue to serially examined, consider , if it continues to worsen, though at this point, there is no evidence to suggest an acute abdomen. Ultrasound on her right arm was negative for acute DVT. Continue Trileptal for seizure prevention and mood disorder. BHARATHI REICH DO 10/29/161956: Assessment & Plan Assessment I do fully agree with the assessment and plan as expressed in Ms. Rosales's progress note done today, October 29, 2016. Plan/Intensity of Service 10/29/2016 April note: Noa is lying in bed when seen in her room. She states that she does not like having her Burroughs catheter out as she now is wetting the bed. She is able to ambulate with the help of 2 persons but doesn't really seem to want to. She denies any shortness of breath. Denies any episodes of chest pain. She denies any headache. She denies general weakness. She still maintains she does not remember living in [place]. She denies any abdominal pain. Her examination shows that her heart has a regular rhythm without murmur; lungs are clear to auscultation bilaterally with no wheezing; abdomen is obese, soft, bowel sounds are present; lower extremities show trace of edema bilaterally; she is still confused about her destination when she leaves this hospital. Her diagnoses are the followin. Severe sepsis, resolved 2. Hypernatremia, resolved 3. Hypo Ynes Yolanda, resolved: 4. Psychosis, chronic I've. Bipolar affective disorder, chronic 6. Post thyroidism, chronic 7. GERD, chronic 8. Hypo-tension, recurrent 10. Night pain syndrome; need to take out the diagnosis of chronic kidney disease as her glomerular filtration rate was 127 which is obviously not kidney disease. We do plan to talk to generations and have them do screen to see if she would qualify to go there because she simply not eating well and this is or will soon become a problem with plan to discharge her tomorrow, October 30, 2016 ISABELLA ROSALES APRN Oct 29, 2016 11:11 BHARATHI REICH DO Oct 29, 2016 19:57
--- NOTE | 2016-10-29 13:09 | NUR ---
PAIN PT. COMPLAINED OF A PAIN SCALE OF 9 NARCO GIVEN AT 1300. Addendum: 10/29/16 at 1311 by LALITA TEMPLE !!!!!!!!!!!!!!!!!!!!!!NORCO!!!!!!!!!!!!!!!!!!!!!!!!!!!!
--- NOTE | 2016-10-29 15:20 | NUR ---
Nutrition Risk F/U Diet Order: Dysphagia [facility] soft with 1/4" chopped meat with thin liquids RD observed pt eating potato wedges and cheese quesadilla. Pt needed assistance in cutting quesadilla up, but seemed interested in eating despite pt saying "It doesn't taste right." Pt commented to RD "There must be something happening, I keep hearing guns clicking and they keep coming in to check my blood sugars." RD reassured pt. RN notified of pt's comments. RD provided encouragement to pt to continue eating and assisted with setting up meal tray. RD will continue to offer supplements, however at this time pt continues to decline any supplements. Pt's appetite does seem to be improving although it remains inadequate. RD available at ext [phone]
[2016-10-29] MEDS: FERROUS SULFATE 324 MG TABLET PO SCH (17:47)
--- NOTE | 2016-10-29 18:57 | NUR ---
SHIFT SUMMARY Patient is AO x 3. Pt has been compliant with medications. Burroughs catheter was discontinued today and patient was incontinent afterward, patient was bladder scanned after incontinent void and PVR was zero. Pt is able to verbalize needs, she complain of pain throughout the shift, PRN pain medication was given, patient was reposition as well, during follow up patient was sleep and when she was awake she rated her pain at 8. Patient has been having a poor appetite. BGMs have been WNL. Pt told food and nutrition staff that something must be going on, because she kept hearing "gun clicking and staff kept going into her room to check her blood sugar." Patient denies needs or concerns at the moment.
[2016-10-29] MEDS: LORAZEPAM 0.5 MG TABLET PO PRN (20:25)
--- NOTE | 2016-10-29 21:44 | GENPN ---
[facility] Subjective Date DATE: 10/29/16 TIME: 21:29 Subjective/Severity of Illness Medications Current Medications Medications (Trade) Dose Ordered Sig/Omari Start Time Stop Time Status Last Admin Dose Admin Sodium Chloride (Normal Saline IV) 1,000 ml @ 150 mls/hr Q6H40M 10/20/16 15:30 10/21/16 11:55 DC 10/21/16 03:49 150 MLS/HR Acetaminophen 650 mg 650 mg Q6H PRN 10/20/16 16:45 10/20/16 18:33 DC 10/20/16 16:38 650 MG Vancomycin HCl/ Sodium Chloride (Vancocin/NS) 500 ml @ 250 mls/hr Q12HR 10/21/16 09:00 10/22/16 10:05 DC 10/21/16 22:07 250 MLS/HR Lorazepam 1-2 ONLY FOR SEIZURES Q4H PRN 10/20/16 17:15 10/26/16 10:43 2 MG Potassium Chloride/ Lidocaine HCl/ Sodium Chloride (KCl/Xylocaine 1%/NS) 106 ml @ 100 mls/hr Q1H4M 10/20/16 17:15 10/20/16 21:29 DC 10/20/16 20:27 100 MLS/HR Ondansetron HCl (Zofran) 4 mg Q6HR PRN 10/20/16 17:15 10/25/16 19:58 4 MG Acetaminophen 650 mg 650 mg Q6H PRN 10/20/16 17:15 10/20/16 18:33 DC Ampicillin Sodium 2 g/Sodium Chloride 100 ml @ 200 mls/hr Q4HR 10/20/16 21:00 10/26/16 12:03 DC 10/26/16 08:32 200 MLS/HR Ceftriaxone Sodium/Sodium Chloride (Rocephin/NS) 100 ml @ 100 mls/hr Q12HR 10/20/16 18:00 10/26/16 12:03 DC 10/26/16 09:26 100 MLS/HR Dexamethasone Sodium Phosphate (Decadron) 12 mg Q6H 10/20/16 17:15 10/22/16 19:00 DC 10/22/16 17:42 12 MG Acetaminophen (Tylenol Suppository) 650 mg Q4HR PRN 10/20/16 18:15 10/22/16 19:55 DC Albuterol/ Ipratropium 3 ml 3 ml QID 10/20/16 21:00 10/22/16 07:32 DC 10/21/16 19:40 3 ML Potassium Chloride/Sodium Chloride (KCl/0.45% NS) 1,020 ml @ 50 mls/hr [id number] 10/21/16 11:45 10/24/16 17:28 DC 10/24/16 15:39 50 MLS/HR Acetaminophen (Tylenol Regular Strength) 325 mg QID PRN 10/21/16 11:45 Bupropion HCl (Wellbutrin Xl) 150 mg DAILY 10/22/16 09:00 Future hold 10/26/16 09:27 150 MG Lorazepam (Ativan) 0.5 mg DAILY 10/22/16 09:00 10/29/16 08:46 0.5 MG Lorazepam (Ativan) 0.5 mg DAILY PRN 10/21/16 11:45 10/28/16 14:57 DC 10/25/16 20:11 0.5 MG Quetiapine Fumarate (Seroquel) 50 mg DAILY 10/22/16 09:00 10/26/16 19:24 DC 10/26/16 09:27 50 MG Ketorolac Tromethamine (Toradol) 15 mg Q6H PRN 10/22/16 02:45 10/22/16 19:55 DC Morphine Sulfate (Morphine Sulfate) 2 mg Q4H PRN 10/22/16 02:45 10/22/16 02:45 DC Morphine Sulfate (Morphine) 2 mg Q4H PRN 10/22/16 02:45 10/28/16 11:59 2 MG Albuterol/ Ipratropium 3 ml 3 ml RTQID 10/22/16 11:00 10/29/16 19:52 3 ML Vancomycin HCl/ Sodium Chloride (Vancocin/NS) 250 ml @ 200 mls/hr Q12H 10/22/16 12:00 10/24/16 12:39 DC 10/24/16 00:11 200 MLS/HR Oxcarbazepine (Trileptal) 300 mg BID 10/22/16 10:00 10/29/16 20:24 300 MG Nystatin (Nystatin Susp.) 5 ml QID 10/22/16 13:00 11/01/16 12:59 10/29/16 20:24 5 ML Fluticasone Propionate (Flonase) 2 spray DAILY 10/23/16 09:00 10/29/16 08:48 2 SPRAY Acetaminophen/ Hydrocodone Bitart ([place] 5/325) 1 tab Q6H PRN 10/22/16 11:00 10/29/16 20:25 1 TAB Levothyroxine Sodium (Synthroid) 150 mcg ACB 10/23/16 06:30 10/29/16 06:26 150 MCG Potassium Chloride (Kdur) 20 meq WB 10/22/16 19:45 10/23/16 06:11 DC 10/22/16 20:10 20 MEQ Potassium Chloride (Kdur) 20 meq WB 10/23/16 08:00 10/28/16 14:57 DC 10/28/16 10:06 20 MEQ Benzonatate (TESSALON PERLES 100 mg) 100 mg TID PRN 10/23/16 16:30 Metoclopramide HCl (Reglan) 5 mg AC PRN 10/23/16 16:30 Quetiapine Fumarate 50 mg 50 mg DAILY PRN 10/23/16 16:30 10/25/16 08:42 50 MG Vancomycin HCl/ Sodium Chloride (Vancocin/NS) 500 ml @ 250 mls/hr Q24H 10/25/16 06:00 10/28/16 08:45 DC 10/28/16 06:31 250 MLS/HR Sumatriptan Succinate 50 mg 50 mg 2XW PRN 10/24/16 13:30 10/29/16 10:45 50 MG Ampicillin Sodium 2 g/Sodium Chloride 100 ml @ 200 mls/hr Q4HR 10/26/16 13:00 10/28/16 08:55 DC 10/28/16 05:51 200 MLS/HR Ceftriaxone Sodium/Sodium Chloride (Rocephin/NS) 100 ml @ 100 mls/hr Q12HR 10/26/16 21:00 10/28/16 08:55 DC 10/28/16 08:54 100 MLS/HR Quetiapine Fumarate (Seroquel) 100 mg DAILY 10/27/16 09:00 10/29/16 08:47 100 MG Lorazepam (Ativan) 0.5 mg BID PRN 10/28/16 14:45 10/29/16 20:25 0.5 MG Potassium Chloride (Kdur) 20 meq BIDBS 10/28/16 17:30 10/29/16 17:47 20 MEQ Spironolactone (Aldactone) 25 mg DAILY 10/28/16 14:45 10/29/16 08:47 25 MG Ferrous Sulfate (Feosol) 324 mg WS 10/28/16 17:30 10/29/16 17:47 324 MG Docusate Sodium (Colace) 100 mg DAILY 10/29/16 09:00 10/29/16 08:46 100 MG Subjective Patient seen and chart reviewed. Patient's mother is at bedside. Patient is lying in bed and watching TV. She reports that she is in a lot of pain all over. Psychiatry was asked to re-visit the patient due to concern of her not eating. She has previously reported to the medical team that she only wants to eat fast food. Patient says she is unsure of why she wants to eat but as I have cared for this patient in the past, I know it is a chronic issue for her. She says that nothing from the hospital menu really sounds good to her but she would like a cheeseburger or chicken nuggets. She was able to get her false teeth put in today and says this helped make it easier for her to eat. She reportedly ate 25% of breakfast, 50% of lunch and 50% of dinner today. She states that she will make an effort to eat again tomorrow. Her mood is fairly stable though she does not enjoy being in the hospital. She denies any thoughts of self-harm. She does complain of VH (thinks people she knows are coming in her room) and some odd connections with things she sees on TV. These do not seem to be particularly disturbing in nature. Patient's mother states that she has not always had such beliefs but they are somewhat chronic with medical problems. Patient can also be attention-seeking at times. They both feel that Seroquel is helpful for her paranoia and VH. At the time of her last hospitalization, she was discharged on Seroquel 200mg PO BID before this was discontinued by the nursing facility and Wellbutrin was started. Given patient' s history of oumou as well as seizure disorder, would not agree with use of Wellbutrin, especially unopposed by mood stabilizer. Start Time: 16:20 Stop Time: 16:50 Care >50% of this visit spent in counseling/coordination care. [facility] Exam Vitals Vital Signs Date Time Temp Pulse Resp B/P Pulse Ox O2 Delivery O2 Flow Rate FiO2 10/29/16 20:34 90 10/29/16 19:52 18 10/29/16 16:11 92 10/29/16 16:00 98.0 124/84 Room Air Physical examination performed by the hospitalist. Height (Feet): 5 Height (Inches): 2.00 Mental Status Exam Muscle Strength/Tone: Normal Dressing: Casual Grooming: Fair Attitude: Cooperative Motor Activity: Normal Eye Contact: Fair Speech: Normal Volume: Normal Rhythm: Appropriate Rhythm Sensory: Alert Orientation: Oriented X4 Mood: Neutral Affect: Restricted (Patient is irritable about being in the hopistal) Rate of Thoughts: Appropriate Rate Thought Organization: Organized Abstract Reasoning: Poor abstract reasoning Thought Content: Somatic Concerns, Other (Finds some bizarre connections with things she sees on TV) Current Hallucinations: Visual (reported by patient, not particularly distressing in nature) Attention Span/Concentration: Normal Language: Naming Intact Fund of Knowledge: Haydee aware current events Memory: Grossly Intact Suicidal Ideation: Denies Homicidal Ideation: Denies Insight: Limited Judgment: Limited Impulse Control: Fair Laboratory Tests Test 10/29/16 04:57 10/29/16 06:02 10/29/16 06:57 10/29/16 09:58 White Blood Count 5.0T/MM3 Red Blood Count 3.01M/MM3 Hemoglobin 9.7GM/DL Hematocrit 30.8% Mean Corpuscular Volume 102.3UM3 Mean Corpuscular Hemoglobin 32.2UUG Mean Corpuscular Hemoglobin Concent 31.5GM/DL RDW Standard Deviation 66.4FL Platelet Count 212T/MM3 Mean Platelet Volume 9.7UM3 Immature Granulocyte % (Auto) 0.4% Neutrophils (%) (Auto) 36.8% Lymphocytes (%) (Auto) 47.4% Monocytes (%) (Auto) 11.6% Eosinophils (%) (Auto) 3.6% Basophils (%) (Auto) 0.2% Absolute Immature Granulocyte (auto 0.02T/MM3 Absolute Neutrophils (auto) 1.9T/MM3 Absolute Lymphocytes (auto) 2.4T/MM3 Absolute Monocytes (auto) 0.6T/MM3 Absolute Eosinophils (auto) 0.2T/MM3 Absolute Basophils (auto) 0.0T/MM3 Turbidity < 20 Sodium Level 139MEQ/L Potassium Level 3.7MEQ/L Chloride Level 110MEQ/L Carbon Dioxide Level 28MEQ/L Anion Gap 1MEQ/L Blood Urea Nitrogen < 2.0MG/DL Creatinine 0.5MG/DL Glomerular Filtration Rate Calc 127 BUN/Creatinine Ratio RATIO Glucose Level 70MG/DL Calculated Osmolality MOSM/KG Calcium Level 7.4MG/DL Phosphorus Level 3.3MG/DL Magnesium Level 1.7MG/DL Icterus Index < 2 Albumin 1.6G/DL Chemistry Specimen Hemolysis < 15 Glucometer 77mg/dL 94mg/dL 91mg/dL Test 10/29/16 14:20 10/29/16 20:06 Glucometer 97mg/dL 89mg/dL Assessment and Plan (1) Bipolar disorder, curr episode depressed, severe, w/psychotic features Assessment: Recommendations at time of initial consult (by Dr. Marin): 1. Given the recent seizure episode, will suggest stopping Bupropion as it could lower seizure threshold and predispose patient to seizure. 2. Increase the dose of Seroquel from 50mg to 100mg and if she tolerates it, increase to 150mg after 2 days. 3.Cont other psych medications. 4. Thank you for letting us participate in the care of this patient and do not hesitate to call us if you have any questions. Updated recommendations 10/29/[address] Vargas: Agree with above, will increase Seroquel further to 150mg PO q HS as recommended above. May benefit both reported VH and appetite. Please have staff ask patient about VH intermittnetly - she has a PRN available for hallucinations that has not been used since 10/25. Patient is not a danger to self or others; does not required inpatient psychiatric stabilization at this time. Eating a portion of all meals and behavior may be somewhat manipulative - suggest reviewing goals of care and reviewing diet restrictions if appropriate. (2) Encephalopathy (3) Seizure (4) Severe sepsis TAMIA VARGAS MD Oct 29, 2016 21:38
[2016-10-29] MEDS ORDERED: QUETIAPINE 100 MG TABLET PO SCH ×2 (22:00)
--- NOTE | 2016-10-30 00:57 | NUR ---
PRN Meds Pt complained of pain at 8/10. [place] given. On reassessment pain was at 7/10. Pt also requested PRN Ativan. Gave PO ativan. Pt complained of acid reflux. Gave PRN Reglan tablet. Will continue to monitor.
[2016-10-30] MEDS: HYDROCODONE/APAP 5 mg/325 mg TABLET PO PRN ×2 (04:33→10:41)
--- NOTE | 2016-10-30 05:11 | NUR ---
Status Pt requested PRN [place] for second time during shift. Given as charted. Pt stated that PRN Reglan was somewhat helpful for the acid reflux. Turned q2h from side to side and changed brief each time. Incontinent of urine each time. Pt did not assist with turns even though nursing asked pt to assist. PAC flushes and aspirates easily. IV locked. VSS. Bed alarm on and call light within reach. Will continue to monitor.
[2016-10-30] MEDS: LEVOTHYROXINE 150 MCG TABLET PO SCH (05:34)
[2016-10-30 05:42] LABS: ANION GAP 2 MEQ/L (5-15); BLOOD UREA NITROGEN < 2.0 MG/DL (7-17); CALCIUM 7.6 MG/DL (8.4-10.2); CHLORIDE 112 MEQ/L (98-107); CO2 - CARBON DIOXIDE 27 MEQ/L (22-30); CREATININE 0.4 MG/DL (0.7-1.2); GLOMERULAR FILTRATION RATE 164; GLUCOSE 70 MG/DL (65-110); MAGNESIUM 1.9 MG/DL (1.6-2.3); POTASSIUM 3.8 MEQ/L (3.6-5); SODIUM 141 MEQ/L (134-144)
[2016-10-30] MEDS: ALBUTEROL/IPRATROPIUM INHAL. 2.5mg-0.5mg/3ml Neb. AEROSOL SCH ×4 (07:00→14:15)
[2016-10-30 07:42] VITALS: O2SAT 95
[2016-10-30 08:00] VITALS: BP 104/66; PULSE 90; RESP 16; TEMP 96.5; O2SAT 98
--- NOTE | 2016-10-30 10:09 | NUR ---
CM THIS WORKER CALLED AND SPOKE TO [facility] TO NOTIFY THAT PT WOULD BE LIKELY DISCHARGED ON THIS DATE. THIS WORKER ALSO SPOKE TO DPOA/MOTHER, RENATO. ALL IN AGREEMENT WITH DISCHARGE PLAN. IM REVIEWED WITH DPOA ON THIS DATE.
[2016-10-30] MEDS: DOCUSATE SODIUM 100 MG CAPSULE PO SCH (10:40)
[2016-10-30] MEDS: LORAZEPAM 0.5 MG TABLET PO SCH (10:40)
[2016-10-30] MEDS: SPIRONOLACTONE 25 MG TABLET PO SCH (10:41)
[2016-10-30 10:42] VITALS: PULSE 90; RESP 16
[2016-10-30] MEDS: NYSTATIN 500,000 units/5ml Susp UD PO SCH ×2 (10:42→13:00)
[2016-10-30] MEDS: OXCARBAZEPINE 300 MG TABLET PO SCH (10:42)
[2016-10-30] MEDS: FLUTICASONE NASAL SPRAY 50 MCG EA NOSTRIL SCH (10:43)
[2016-10-30] MEDS: POTASSIUM CHLORIDE 20 MEQ TABLET PO SCH (10:46)
[2016-10-30] MEDS ORDERED: QUET50TA PO (11:22)
[2016-10-30] MEDS ORDERED: QUET100T69 PO (11:22)
[2016-10-30] MEDS ORDERED: POTA20TA10 PO (11:22)
[2016-10-30] MEDS ORDERED: HYDR-4246 PO (11:22)
[2016-10-30] MEDS ORDERED: SPIR25TA PO (11:22)
[2016-10-30] MEDS ORDERED: OXCA300T PO (11:22)
[2016-10-30] MEDS ORDERED: LORA0.5T2 PO (11:22)
[2016-10-30] MEDS ORDERED: FERR324T4 PO (11:22)
[2016-10-30] MEDS ORDERED: NYST5ORA7 PO (11:22)
--- NOTE | 2016-10-30 11:27 | PDOCECFAO ---
Admission Orders Admission Orders Admit to: Residential Allergies: Coded Allergies: divalproex sodium (Verified Allergy, Severe, FACE SWELLS, 10/20/16) Sulfa (Sulfonamide Antibiotics) (Verified Allergy, Intermediate, RASH, ) phenazopyridine HCl (Verified Allergy, Intermediate, RASH, 10/20/16) gentamicin (Verified Allergy, Unknown, 10/20/16) phenazopyridine (Verified Allergy, Unknown, 10/20/16) levofloxacin (Verified Adverse Reaction, Severe, HALLUCINATIONS, 10/20/16) psychosis ampicillin (Verified Adverse Reaction, Mild, DIARRHEA, 10/20/16) Uncoded Allergies: Dantrisin (Allergy, Intermediate, RASH, 08/01/10) Admitting Diagnosis Mental Status Changes, Epilepsy Admitting Physician Traci Linder MD Code Status Do Not Resuscitate Anticipated LOS: 30 days or less Rehab Potential: Fair Diet: Mechanical Soft (Dysphagia mech soft with 1/4" chopped meat with thin liquids) Wound/Incision Care: Monitor for yeast infections and skin breakdown. May use Facility Protocol /SO: Yes Evaluations/Treat: Speech, PT, OT Residential Certification I certify that SNF services are required to be given on an Inpatient basis because of the patient's need for fdc care on a continuing basis for the condition(s) for which she received inpatient hospital services prior to her transfer to the SNF. SNF inpatient care is necessary for the following reasons Neuro Assessment Cardiac or Respiratory Arrest In Event of Arrest: Do Not Start CPR Resident is Aware of Diagnosis: Yes Laboratory/Radiology BMP on 11/02/16 (E87.6). Fax results to Dr. Underwood. Additional Orders: Follow-up with Dr. Underwood in [address] Mcclure's office to arrange follow-up. Follow-up with [facility] in 1 week. Give PRN dose of Seroquel if needed for hallucinations. Burroughs catheter was removed on 10/29/16. Bladder scan if needed. Offer nutritional supplements daily. Patient will be re-enrolled in the transitional program from the hospital. ISABELLA ROSALES APRN Oct 30, 2016 11:27
--- NOTE | 2016-10-30 12:20 | NUR ---
CM THIS WORKER MET WITH PT ON THIS DATE. PT LAYING IN BED. THIS WORKER EXPLAINED THAT PT WAS PLANNING TO BE DISMISSED ON THIS DATE. THIS WORKER REVIEWED DISCHARGE PLAN REGARDING [facility]. PT ACKNOWLEDGED THAT SHE WAS AWARE OF DISMISSAL. PT MADE A COMMENT ABOUT AT [facility] THAT SHE THOUGHT THAT WAS DR GAFFNEY'S OFFICE AND NOT [facility]. PT REPORTED THAT "SHE KNOW ABOUT ALL OF THESE PLACES." THIS WORKER EXPLAINED THAT I HAD SPOKEN WITH HER MOTHER TODAY TO UPDATE ON DISCHARGE PLAN. UPDATE TO NURSE AND PHYSICIAN ON THIS DATE.
--- NOTE | 2016-10-30 13:50 | DSPDOC ---
General Date Date DATE: 10/30/16 TIME: 13:13 Attending Physician Traci Linder MD Admitting Physician Traci Linder MD Consulting Physician Laci Levine MD Admitting Diagnosis (1) Seizure (2) Severe sepsis, Rule Out (3) Hypokalemia (4) Hypernatremia (5) Encephalopathy Discharge Diagnosis (1) Seizure, stabilized on Trileptal (2) Severe sepsis, suspected meningitis but pt refused LP to confirm (3) Hypokalemia - resolved, started Spironolactone and increased KDur (4) Hypernatremia - resolved (5) Encephalopathy - improved (6) Bipolar with visual hallucinations - stable, not a risk to self or others - increased Seroquel HS and DC'd Wellbutrin Procedures Burroughs catheter 10/20/16-10/29/16. PVR on 10/29/16 was 0 mL. Accessed newly placed PowerPort on 10/20/16 and de-accessed on 10/30/16. IO Needle inserted in ED and was removed. Laboratory Laboratory Tests Test 10/29/16 04:57 10/29/16 06:02 10/29/16 06:57 10/29/16 09:58 White Blood Count 5.0T/MM3 (4.5-11.0) Red Blood Count 3.01M/MM3 (4.00-5.20) Hemoglobin 9.7GM/DL (12-16) Hematocrit 30.8% (36-46) Mean Corpuscular Volume 102.3UM3 (80-100) Mean Corpuscular Hemoglobin 32.2UUG (26-34) Mean Corpuscular Hemoglobin Concent 31.5GM/DL (31-37) RDW Standard Deviation 66.4FL (36.9-50.2) Platelet Count 212T/MM3 (130-400) Mean Platelet Volume 9.7UM3 (9.4-12.4) Immature Granulocyte % (Auto) 0.4% (0.0-0.5) Neutrophils (%) (Auto) 36.8% (33-66) Lymphocytes (%) (Auto) 47.4% (23-45) Monocytes (%) (Auto) 11.6% (0-9.0) Eosinophils (%) (Auto) 3.6% (0-4) Basophils (%) (Auto) 0.2% (0-2) Absolute Immature Granulocyte (auto 0.02T/MM3 (0.00-0.03) Absolute Neutrophils (auto) 1.9T/MM3 (1.8-7.7) Absolute Lymphocytes (auto) 2.4T/MM3 (1-4.8) Absolute Monocytes (auto) 0.6T/MM3 (0-0.8) Absolute Eosinophils (auto) 0.2T/MM3 (0-0.5) Absolute Basophils (auto) 0.0T/MM3 (0-0.2) Turbidity < 20 (0-20) Sodium Level 139MEQ/L (134-144) Potassium Level 3.7MEQ/L (3.6-5) Chloride Level 110MEQ/L (98-107) Carbon Dioxide Level 28MEQ/L (22-30) Anion Gap 1MEQ/L (5-15) Blood Urea Nitrogen < 2.0MG/DL (7-17) Creatinine 0.5MG/DL (0.7-1.2) Glomerular Filtration Rate Calc 127 BUN/Creatinine Ratio RATIO (6-26) Glucose Level 70MG/DL (65-110) Calculated Osmolality MOSM/KG (261-280) Calcium Level 7.4MG/DL (8.4-10.2) Phosphorus Level 3.3MG/DL (2.5-4.5) Magnesium Level 1.7MG/DL (1.6-2.3) Icterus Index < 2 (0-7) Albumin 1.6G/DL (3.5-5.0) Chemistry Specimen Hemolysis < 15 (0-25) Glucometer 77mg/dL (65-110) 94mg/dL (65-110) 91mg/dL (65-110) Test 10/29/16 14:20 10/29/16 20:06 10/30/16 04:14 10/30/16 04:17 Glucometer 97mg/dL (65-110) 89mg/dL (65-110) 73mg/dL (65-110) Turbidity < 20 (0-20) Sodium Level 141MEQ/L (134-144) Potassium Level 3.8MEQ/L (3.6-5) Chloride Level 112MEQ/L (98-107) Carbon Dioxide Level 27MEQ/L (22-30) Anion Gap 2MEQ/L (5-15) Blood Urea Nitrogen < 2.0MG/DL (7-17) Creatinine 0.4MG/DL (0.7-1.2) Glomerular Filtration Rate Calc 164 BUN/Creatinine Ratio RATIO (6-26) Glucose Level 70MG/DL (65-110) Calculated Osmolality MOSM/KG (261-280) Calcium Level 7.6MG/DL (8.4-10.2) Magnesium Level 1.9MG/DL (1.6-2.3) Icterus Index < 2 (0-7) Chemistry Specimen Hemolysis 15 (0-25) Test 10/30/16 05:42 10/30/16 10:55 Glucometer 98mg/dL (65-110) 129mg/dL (65-110) Microbiology Blood cultures negative after [address] 10/20/16 - No acute intracranial abnormality or hemorrhage CXR 10/20/16 - No pneumonia. Brain MRI 10/22/16 - limited due to motion artifact but there is no gross intracranial abnormality. CXR 10/22/16 - Negative. Upper extremity Doppler 10/29/16 - no DVT to right upper extremity. History of Present Illness Elina Alicia is a 56 y/o lady with a hx of bipolar d/o and major depression, and resides in [facility] care. She has been having increasing hallucinations and paranoia and delusions at [facility] since last dc'd from the hospital (09/27/16) - she has believed that staff is putting horse tranquilizer in her water and that they are bugging her bed. She has had recent hospitalizations at [facility] for dehydration, hypokalemia, UTI, depression, and RSV. Saw Dr. Underwood on 10/10/16 - he discontinued topiramate, Seroquel, K, Lasix. Stopped antacids. Decreased Lorazepam to 0.5 mg. Start Vitamin B12, Folic acid and thiamine for pernicious anemia, and vit D3 for deficiency. Finished course of fluconazole 200 mg daily x 7 days for yeast dermatitis (started 10/10/16). She had a PowerPort inserted on 10/18/[address] Lopez. Per report, she has had poor oral intake and has been lethargic for the last 5 days. EMS was summoned, and noted that she responded to painful stimuli only. Shortly after arrival to the emergency department, she began to have tonic- clonic left-sided seizure involving her face, arms and leg, which lasted about 3 minutes. She had a repeated seizure about 10 minutes later. An IO was placed to the right tibia. She was given Valium and Ativan in the emergency department. A Burroughs catheter was also inserted. She was febrile on arrival with a temp of 101.4. Room air saturation was 63%, and she was placed on a nonrebreather mask. She was also noted to be tachycardic and tachypneic. White count was normal at 9.7 with 79.9% neutrophils. ABG showed a pH of 7.45, PCO2 of 33, PO2 of 205 and bicarbonate of 23, while on 10 L of oxygen. CMP showed hypernatremia with sodium of 146, hypokalemia with potassium of 3.3, hypocalcemia with a calcium level of 7.1, elevated AST, 60, elevated ALT, 53, and low albumin at 1.9. Lactate was 1.5 and procalcitonin was 0.05. Toxicology screen was positive for opiates and benzodiazepines. Urinalysis showed 1+ ketones, 5-10 RBC, and 1+ bacteria. Head CT did not show any acute intracranial abnormality. Blood cultures were drawn, and she was given IV fluid bolus. The hospitalist service was contacted and the patient was admitted to inpatient status to the critical care unit. Length of stay expected to exceed 2 overnights to further evaluate and treat her acute, new onset seizure activities , severe sepsis, and acute encephalopathy. Hospital Course Elina was admitted to the CCU on 10/20/16 for new onset seizure disorder. She received Ativan in the emergency department for 2 witnessed seizures. She had positive SIRS criteria with a MAXIMUM TEMPERATURE of 103 and with her acute severe mental status change, we were concerned about severe sepsis and acute meningitis. She was started on dexamethasone as well as meningitis dosed ceftriaxone plus vancomycin and ampicillin. In all, she completed 10 days of antibiotic therapy. She was noted to be hypokalemic and this was replaced IV and later orally. She was also hypernatremic and IV fluids are started. Hypocalcemia was noted on admission, but adjusted to a normal range considering her low albumin. By hospital day #2, she was more interactive, though her mental status was still below baseline. Lumbar puncture was discussed with the patient and her mother, but declined. IV fluids were changed to half-normal saline with potassium because of persistent hypernatremia and hypokalemia. Iron studies were assessed because of macrocytic anemia, and her iron level was noted to be low. She was subsequently started on ferrous sulfate. Dr. Levine was consulted and recommended to start Trileptal 300 mg twice a day to help with seizure prevention and her mood disorder. She developed diarrhea, but a GI panel was negative. Her mental status continued to improve, and she started to complain of her chronic headache and abdominal discomfort. She continued to have intermittent issues with hypokalemia, requiring replacement. She also received low-dose diuresis for weight gain and positive fluid balance; and on she was started on spironolactone plus higher doses of KCl for hypokalemia and to help with her edema. She was evaluated by speech therapy on a few different occasions, and eventually her diet was upgraded to a dysphagia mechanical soft diet with quarter inch chopped meat and thin liquids. Her appetite was poor, and both dietary services and psychiatry were asked to offer recommendations. Dietary recommended to offer nutritional supplements. Psychiatry recommended to discontinue bupropion due to possibility of it lowering the seizure threshold. Seroquel was increased to 150 mg and timing was changed to HS to minimize sedation. It's possible the patient was not eating well as a manipulative behavior. Her Burroughs catheter was discontinued on 10/29/16 and post-void residuals showed 0 mL. She was started on nystatin for oral thrush. She did not have further seizures during the hospitalization. She was medically stable for discharge to SNF on 10/30/16, with new RX: Seroquel 150 mg HS, Trileptal 300 mg BID, Nystatin oral solution x5 days, KCl at increased frequency of BID, Spironolactone 25 mg daily x7 days. Repeat BMP on 11/02/16, fax results to Dr. Underwood. F/U with Dr. Underwood, PV, and Dr. Levine. The patient' s mother was contacted prior to discharge and agreed with discharge plans. Problems: (1) Seizure Status: Acute Assessment & Plan: Left focal motor (2) Severe sepsis Status: Resolved Assessment & Plan: R/O; presentation with altered mental status, fever, and new seizures worrisome for meningitis (3) Hypernatremia Status: Resolved (4) Hypokalemia Status: Resolved (5) Encephalopathy Status: Resolved (6) Psychosis Status: Chronic (7) Elevated LFTs Status: Chronic (8) Bipolar affective disorder Status: Chronic (9) Hypothyroidism Status: Chronic Assessment & Plan: TSH 1.41 on 10/22/16 (10) GERD (gastroesophageal reflux disease) Status: Chronic (11) Stage III chronic kidney disease Status: Chronic (12) Nonalcoholic steatohepatitis Status: Chronic (13) Migraine Status: Chronic (14) GIOVANA (obstructive sleep apnea) Status: Chronic (15) Hypotension Status: Chronic (16) Morbid obesity Status: Chronic (17) Migraines Status: Chronic (18) Chronic pain syndrome Status: Chronic (19) Major depression Status: Chronic (20) Macrocytic anemia Status: Chronic Assessment & Plan: B12 988 09/21; iron 17, TIBC 124, saturation 14% on 10/22/16 (21) Thrush, oral Status: Acute (22) Insomnia Status: Chronic (23) Dysphagia (24) Hypocalcemia Code Status Do Not Resuscitate Home Meds Active Scripts Potassium Chloride (Klor-Con M20) 20 Meq Tablet, 20 MEQ PO BIDBS for 10 Days, # 20 TAB Prov:ISABELLA ORSALES APRN 10/30/16 Quetiapine Fumarate (Quetiapine Fumarate) 100 Mg Tablet, 150 MG PO HS, #30 TAB Prov:ISABELLA ROSALES CONING MACHINE OPERATOR 10/30/16 Oxcarbazepine (Trileptal) 300 Mg Tablet, 300 MG PO BID, #60 TAB Prov:ISABELLA ROSALES APRN 10/30/16 Spironolactone (Aldactone) 25 Mg Tablet, 25 MG PO DAILY for 7 Days, #7 TAB Prov:ISABELLA ROSALES APRN 10/30/16 Ferrous Sulfate (Ferrous Sulfate) 324 Mg Tablet.dr, 324 MG PO WS for 30 Days, # 30 TAB Prov:ISABELLA ROSALES APRN 10/30/16 Nystatin (Nystatin) 100,000 Unit/1 Ml Oral.susp, 5 ML PO QID for 5 Days Prov:ISABELLA ROSALES APRN 10/30/16 Quetiapine Fumarate (Seroquel) 50 Mg Tablet, 50 MG PO DAILY Y for HALLUCINATIONS , #20 Prov:ISABELLA ROSALES Arvind CONING MACHINE OPERATOR 10/30/16 Lorazepam (Lorazepam) 0.5 Mg Tablet, 0.5 MG PO DAILY Y for ANXIETY, #20 Prov:ISABELLA ROSALES Arvind CONING MACHINE OPERATOR 10/30/16 Hydrocodone/Acetaminophen ([place] 5-325 Tablet) 5-325 Tablet, 1 TAB PO Q6H Y for PAIN, #20 Prov:ISABELLA ROSALES Arvind CONING MACHINE OPERATOR 10/30/16 Lorazepam (Lorazepam) 0.5 Mg Tablet, 0.5 MG PO DAILY, #20 Prov:ISABELLA ROSALES Arvind CONING MACHINE OPERATOR 10/30/16 Reported Medications Ipratropium/Albuterol Sulfate (Iprat-Albut 0.5-3(2.5) mg/3 ml) 3 Ml Ampul.neb, 1 VIAL AEROSOL QID 10/20/16 Fluticasone Propionate (Fluticasone Prop 50 mcg/actuation Nasal [place]) 120 [place] /16 G [place], 2 SPRAY EA NOSTRIL DAILY 10/20/16 Acetaminophen (Acetaminophen) 325 Mg Tablet, 325 MG PO QID Y for PAIN 10/20/16 Sumatriptan Succinate (Imitrex) 50 Mg Tablet, 50 MG PO 2XW Y for PAIN 10/20/16 Cholecalciferol (Vitamin D3) (Vitamin D-3) 2,000 Unit Tablet, 2000 UNIT PO DAILY 10/18/16 Thiamine HCl (Vitamin B-1) 50 Mg Tablet, 50 MG PO DAILY 10/18/16 Folic Acid (Folic Acid) 1 Mg Tablet, 2 MG PO DAILY 10/18/16 Ondansetron HCl (Ondansetron HCl) 4 Mg Tablet, 4 MG PO Q6HR Y for NAUSEA &/OR VOMITING 09/09/16 Metoclopramide HCl (Metoclopramide HCl) 5 Mg Tablet, 5 MG PO AC Y for ACID REFLUX 09/09/16 Levothyroxine Sodium (Levothyroxine Sodium) 150 Mcg Tablet, 150 MCG PO ACB 09/05/16 Discontinued Reported Medications Benzonatate (Benzonatate) 100 Mg Capsule, 100 MG PO TID Y for COUGH 10/20/16 Potassium Chloride (Potassium Chloride) 20 Meq Tablet.er, 20 MEQ PO WB 3/18/17 Guaifenesin/Dextromethorphan (Mucinex Dm ER 600-30 mg Tablet) 1 Each Tab.er.12h , 1 TAB PO Q12H 10/20/16 Quetiapine Fumarate (Seroquel) 50 Mg Tablet, 50 MG PO DAILY 10/17/16 Bupropion HCl (Bupropion Xl) 150 Mg Tab.er.24h, 150 MG PO DAILY 07/11/16 Face to Face Encounter I met with patient on the day of dismissal and discussed medications and follow up plans. Discharge Disposition DC to SNF, stable High risk for readmission - re-enrolled in [employer] Copies To 1: LACI LEVINE MD; PATIENCE UNDERWOOD MD Documentation Requirements Documenting Diagnosis Altered Mental Status, Malnutrition, Anemia, BMI Low or High, SIRS, Confusion Outpatient Surgery - Inpatient Comments time spent in discharge planning and activities: 60 min. Anemia Anemia Etiology: Iron Deficiency Anemia Acuity: Acute on Chronic Alt. Mental Status/Confusion Check if condition above is: Acute Malnutrition Malnutrition Stage: Moderate BMI Low or High Assoc. dx for low or high BMI: Severe Obesity 35-39.9 SIRS SIRS due to: Infection Comments suspected meningitis ISABELLA ROSALES APRN Oct 30, 2016 13:16
--- NOTE | 2016-10-30 14:00 | NUR ---
CM THIS WORKER SPOKE TO MARILYN FROM [facility]. THEY WILL PLAN TO BULLET MAKER PT AROUND [id number]. NOTIFIED PRIMARY NURSE, TIME OUT COMPLETED, AND THIS WORKER NOTIFIED MOTHER/DPOA BY PHONE.
--- NOTE | 2016-10-30 14:35 | NUR ---
Report SBAR format of report given to Karly Natarajan LPN at [facility]. RERECORDING MIXER aware of recent vital signs and blood glucose. RERECORDING MIXER aware of new orders. Phone number given for further questions. Present questions answered.
--- NOTE | 2016-10-30 14:40 | NUR ---
Discharge Pt discharged to [facility] ([facility]) at this time. Pt assist x 1 by wheelchair out of front entrance to vehicle where [employer] city bus driver drove. Pt in no acute distress. Pt continues to c/o chronic pain, norco given with AM meds. Pt continues to have pressure ulcer on right coccyx and mepilex in place when Pt left [place]. Pt port-a-cath flushed per policy, including NS and heparin, see eMAR. Pt belongings returned. Pt has dentures in mouth. Pt denies SI and plan to kill self. Pt remains to have flat affect. Pt denies chest pain and SOA upon discharge. No other c/o voiced besides overall pain.
--- NOTE | 2016-10-31 13:59 | PDONTRACK ---
Right on Track Program Date of Discharge Oct 30, 2016 at 14:53 Scheduled Cholecalciferol (Vitamin D3) (Vitamin D-3), 2,000 UNIT PO DAILY, (Reported) Ferrous Sulfate (Ferrous Sulfate), 324 MG PO WS Fluticasone Propionate (Fluticasone Prop 50 mcg/actuation Nasal [place]), 2 SPRAY EA NOSTRIL DAILY, (Reported) Folic Acid (Folic Acid), 2 MG PO DAILY, (Reported) Ipratropium/Albuterol Sulfate (Iprat-Albut 0.5-3(2.5) mg/3 ml), 1 VIAL AEROSOL QID, (Reported) Levothyroxine Sodium (Levothyroxine Sodium), 150 MCG PO ACB, (Reported) Lorazepam (Lorazepam), 0.5 MG PO DAILY Nystatin (Nystatin), 5 ML PO QID Oxcarbazepine (Trileptal), 300 MG PO BID Potassium Chloride (Klor-Con M20), 20 MEQ PO BIDBS Quetiapine Fumarate (Quetiapine Fumarate), 150 MG PO HS Spironolactone (Aldactone), 25 MG PO DAILY Thiamine HCl (Vitamin B-1), 50 MG PO DAILY, (Reported) Scheduled PRN Acetaminophen (Acetaminophen), 325 MG PO QID PRN for PAIN, (Reported) Hydrocodone/Acetaminophen ([place] 5-325 Tablet), 1 TAB PO Q6H PRN for PAIN Lorazepam (Lorazepam), 0.5 MG PO DAILY PRN for ANXIETY Metoclopramide HCl (Metoclopramide HCl), 5 MG PO AC PRN for ACID REFLUX, ( Reported) Ondansetron HCl (Ondansetron HCl), 4 MG PO Q6HR PRN for NAUSEA &/OR VOMITING, ( Reported) Quetiapine Fumarate (Seroquel), 50 MG PO DAILY PRN for HALLUCINATIONS Sumatriptan Succinate (Imitrex), 50 MG PO 2XW PRN for PAIN, (Reported) Discontinued Medications Benzonatate (Benzonatate), 100 MG PO TID PRN for COUGH, (Reported) Bupropion HCl (Bupropion Xl), 150 MG PO DAILY, (Reported) Guaifenesin/Dextromethorphan (Mucinex Dm ER 600-30 mg Tablet), 1 TAB PO Q12H, ( Reported) Potassium Chloride (Potassium Chloride), 20 MEQ PO WB, (Reported) Quetiapine Fumarate (Seroquel), 50 MG PO DAILY, (Reported) Date: Oct 31, 2016 Right on Track Program: 24 Hour Follow-Up Discharge Summary Received: Yes Care Plan Received: Yes Follow up: Follow Up Appt. Scheduled Education: Diagnosis Ed. Review, Education to Elevator Repairer Referrals: Social Work Total LACE Score: 8 Comments PHONE CALL #1: I spoke with Farheen, the nurse taking care of Elina. She hasn't had any issues today, other than Elina is weak. They are waiting on PT evaluation. She has not had any sz or hallucinations. We reviewed dx, hospital course, and medication changes. Will continue to follow. Discussed w/pt and caregiver: Yes Problems: (1) Seizure Status: Acute Assessment & Plan: Left focal motor (2) Severe sepsis Status: Resolved Assessment & Plan: R/O; presentation with altered mental status, fever, and new seizures worrisome for meningitis (3) Hypernatremia Status: Resolved (4) Hypokalemia Status: Resolved (5) Encephalopathy Status: Resolved (6) Psychosis Status: Chronic (7) Bipolar affective disorder Status: Chronic (8) Thrush, oral Status: Acute ISABELLA ROSALES APRN Oct 31, 2016 13:55
== END 2016-10-30 14:53 | DRG 871 ==
LOC: ED 11:28 → EDHOLD 15:24 → CCU 16:17 → MED 10-22 21:50
PROVIDERS: ADMIT Internal Medicine; ATTEND Internal Medicine
PROC: B030ZZZ Magnetic Resonance Imaging (MRI) of Brain (ICD-10-PCS; principal; 2016-10-22)
PROC: B030YZZ Magnetic Resonance Imaging (MRI) of Brain using Other Contrast (ICD-10-PCS; 2016-10-22)
DX: A41.9 Sepsis, unspecified organism (principal); G93.41 Metabolic encephalopathy; E87.0 Hyperosmolality and hypernatremia; N39.0 Urinary tract infection, site not specified; B37.0 Candidal stomatitis; F31.5 Bipolar disorder, current episode depressed, severe, with psychotic features; E44.0 Moderate protein-calorie malnutrition; R65.20 Severe sepsis without septic shock; G40.909 Epilepsy, unspecified, not intractable, without status epilepticus; E03.9 Hypothyroidism, unspecified; K21.9 Gastro-esophageal reflux disease without esophagitis; D53.9 Nutritional anemia, unspecified; G47.33 Obstructive sleep apnea (adult) (pediatric); E87.6 Hypokalemia; E83.51 Hypocalcemia; N18.3 Chronic kidney disease, stage 3 (moderate); F29 Unspecified psychosis not due to a substance or known physiological condition; K75.81 Nonalcoholic steatohepatitis (NASH); G43.909 Migraine, unspecified, not intractable, without status migrainosus; E66.01 Morbid (severe) obesity due to excess calories; R13.10 Dysphagia, unspecified; F51.05 Insomnia due to other mental disorder; Z79.899 Other long term (current) drug therapy; Z66 Do not resuscitate; Z68.31 Body mass index [BMI] 31.0-31.9, adult
CPT/HCPCS: 36415; 51702; 80048; 80053; 80069; 80202; 80306; 81001; 81003; 82140; 82330; 82565; 82803; 82948; 83540; 83550; 83605; 83735; 84100; 84145; 84146; 84443; 85025; 86038; 87040; 87507; 94640; 96361; 96374; 99406